=== PATIENT | female | born 1935 | race Caucasian/White ===

== ENCOUNTER 2016-12-16 14:25 | Emergency (ER) | payer MEDICARE, BC ==
[2016-12-16 14:52] VITALS: BP 111/74
[2016-12-16] MEDS ORDERED: Sodium Chloride 0.9% 1,000 ML IV ONE (15:28)
[2016-12-16] MEDS ORDERED: Sodium Chloride 0.9% 10 ML Syringe FLUSH PRN ×2 (15:30→16:51)
[2016-12-16] MEDS ORDERED: HYDROmorphone 0.5 MG/0.5 ML Syringe IVPUSH ONE (15:32)
--- NOTE | 2016-12-16 15:56 | EDM.PDOC ---
ED HISTORY OF PRESENT ILLNESS - General Chief Complaint: Respiratory Problem Stated Complaint: LOW OXYGEN Time Seen by Provider: 12/16/16 15:26 Source of Information: Reports: Patient, Old records (recent ER and hospital stay; labs from earlier today), Provider (Garima Martinez NP called with report) History Limitations: Reports: No limitations - History of Present Illness INITIAL COMMENTS - FREE TEXT/NARRATIVE: Patient presents from the [facility] for evaluation and treatment of hypoxia. The patient's provider Garima Martinez called with report. She is concerned as she has been requiring 2-3 L of oxygen via nasal cannula which is not normal for her. Patient was admitted to our facility in October for congestive heart failure. She did go to [facility] on oxygen and has been steadily been weaned off. Mague is concerned that she may have a PE. She requests that we do a CT to further evaluate. Lab studies from today have been sent over. White blood cell count is 7.8, hemoglobin is 10.8 and platelets are 325. Glucose is 117, potassium is 4.2, sodium is 136 and chloride is 92. Bicarb is 31. BNP was 140. Chest xray impression per [place] [facility] is "Pediatric sternotomy. Hiatal hernia. Calcified hilar lymph nodes. Severe erosive arthropathy of both shoulder. Compressive atelectasis in the left base. No significant chagnes from 12-01-16. Sinus and chest Ct can be helpful in patient's with chronic cough". Of note the patient has also had shingles to the left anterior shoulder extending into her chest. This has been present for the last 2 weeks. She is currently on gapapentin, prednisone and pain medication. She was on valacyclovir but has completed this. - Related Data Allergies/ADRs: Allergies Allergy/AdvReac Type Severity Reaction Status Date / Time No Known Allergies Allergy Verified 12/16/16 14:43 Home Meds: Home Meds Acetaminophen [Tylenol Arthritis] 650 mg PO BID 09/23/16 [History] Calcium Carbonate/Vitamin D3 [Calcium 500 + Vit D Caplet] 1 each PO BID [History] Colon Health 1 tab PO DAILY 09/23/16 [History] Montelukast [Singulair] 10 mg PO DAILY 09/23/16 [History] Omeprazole 20 mg PO DAILY 09/23/16 [History] Oxybutynin Chloride 1 tab PO BEDTIME 09/23/16 [History] Vit A/C/E AC/Znox/Cupric Oxide [Eye Vitamin-Minerals Tablet] 1 each PO DAILY [History] Nabumetone 500 mg PO BID 09/28/16 [History] Potassium Chloride 20 meq PO BID #60 tab.er.prt 09/28/16 [Rx] Fluticasone Propionate [Flonase] 1 spray NASLF ASDIRECTED PRN 11/11/16 [History] Acetaminophen [Tylenol] 650 mg PO Q4H PRN #0 tablet 11/17/16 [Rx] Docusate Sodium [Colace] 100 mg PO BID PRN #30 cap 11/17/16 [Rx] Acetaminophen/HYDROcodone [[place] 325-5 MG] 1 tab PO TID PRN 12/16/16 [History] Bisacodyl [Dulcolax] 10 mg RC ONETIME 12/16/16 [History] Dextromethorphan/guaiFENesin [Robitussin DM] 10 ml PO Q4H PRN 12/16/16 [History] Furosemide [Lasix] 60 mg PO DAILY 12/16/16 [History] Gabapentin [Neurontin] 100 mg PO TID 12/16/16 [History] Ipratropium/Albuterol Sulfate [Iprat-Albut 0.5-3(2.5) mg/3 ml] 3 ml IH QID 12/16 [History] Oseltamivir [Tamiflu] 75 mg PO BEDTIME 12/16/16 [History] Psyllium Husk/Aspartame [Metamucil Fiber Singles Packet] 1 scoop PO DAILY [History] Triamcinolone Acetonide [Triamcinolone Acetonide 0.1% Crm] 1 appful TOP BID [History] predniSONE [Prednisone] 5 mg PO DAILY 12/16/16 [History] Past Medical History HEENT History: Reports: Cataract, Impaired vision, Macular degeneration Cardiovascular History: Reports: Heart Failure, Hypertension Respiratory History: Reports: SOB Other Respiratory History: started on oxygen 11/05/16 Gastrointestinal History: Reports: GERD 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: Musculoskeletal History: Reports: Arthritis, Osteoporosis, Other (see below) Other Musculoskeletal History: scoliosis, bilateral knee replacement, right hip replacement Oncologic (Cancer) History: Reports: Basal cell carcinoma, Other (see below) Other Oncologic History: Thyoma carcinoma, 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 - Infectious Disease History Infectious Disease History: Reports: Chicken pox, Measles, Mumps - Past Surgical History HEENT Surgical History: Reports: Adenoidectomy, Cataract surgery, Tonsillectomy Cardiovascular Surgical History: Reports: None Respiratory Surgical History: Reports: Other (see below) Other Respiratory Surgeries/Procedures: thyoma resection GI Surgical History: Reports: None Female Surgical History: Reports: Hysterectomy Musculoskeletal Surgical History: Reports: Hip replacement, Knee replacement Oncologic Surgical History: Reports: None Social & Family History - Family History Family Medical History: Noncontributory - Tobacco Use Smoking Status *Q: Never Smoker Second Hand Smoke Exposure: No - Caffeine Use Caffeine Use: Reports: Tea Other Caffeine Use: 2 cups of tea a day - Recreational Drug Use Recreational Drug Use: No ED ROS GENERAL - Review of Systems Review Of Systems: See Below Constitutional: Denies: fever Respiratory: Reports: Shortness of Breath Cardiovascular: Reports: Orthopnea. Denies: Chest pain Skin: Reports: rash (left neck and left anterior chest) ED EXAM, GENERAL - Physical Exam Exam: See Below Exam Limited By: No limitations General Appearance: alert, WD/WN, no apparent distress Respiratory/Chest: no respiratory distress, decreased breath sounds Cardiovascular: normal peripheral pulses, regular rate, rhythm, no murmur Neurological: alert, oriented, normal cognition Psychiatric: normal affect, normal mood Skin Exam: Zoster-like rash (left neck and anterior chest; mixture of open and crusted over lesions) Course - Vital Signs Last Recorded V/S: Last Vital Signs Temp 36.8 C 12/16/16 14:43 Pulse 90 12/16/16 14:43 Resp 20 12/16/16 14:43 BP 111/74 12/16/16 14:43 Pulse Ox 98 12/16/16 14:43 - Orders/Labs/Meds Labs: Laboratory Tests 12/16/16 12/16/16 12/16/16 Range/Units 15:25 15:35 15:35 D-Dimer, Quantitative 1.36 H (0.19-0.59) mg/L Creatinine 0.9 (0.55-1.02) mg/dL Est Cr Clr Drug Dosing 35.74 mL/min Estimated GFR (MDRD) 60 (>60) mL/min Magnesium 1.8 (1.8-2.4) mg/dl B-Natriuretic Peptide (0-100) pg/mL 12/16/16 Range/Units 15:35 D-Dimer, Quantitative (0.19-0.59) mg/L Creatinine (0.55-1.02) mg/dL Est Cr Clr Drug Dosing mL/min Estimated GFR (MDRD) (>60) mL/min Magnesium (1.8-2.4) mg/dl B-Natriuretic Peptide 176 H (0-100) pg/mL Meds: Medications Discontinued Medications Generic Name Dose Route Start Last Admin Trade Name Freq PRN Reason Stop Dose Admin Hydromorphone HCl 0.25 mg 12/16/16 15:32 12/16/16 15:45 Dilaudid IVPUSH 12/16/16 15:33 0.25 mg ONETIME ONE Administration Sodium Chloride 1,000 mls @ 75 mls/hr 12/16/16 15:28 12/16/16 15:45 Normal Saline IV 12/17/16 04:47 75 mls/hr ONETIME ONE Administration Sodium Chloride 100 mls @ 65 mls/hr 12/16/16 17:00 12/16/16 17:13 Normal Saline IV 65 mls/hr ASDIRECTED TONY Administration Iopamidol 100 ml 12/16/16 16:51 12/16/16 16:52 Isovue-370 (76%) IVPUSH 12/16/16 16:52 100 ml ONETIME ONE Administration Sodium Chloride 10 ml 12/16/16 15:30 12/16/16 15:46 Saline Flush FLUSH 10 ml ASDIRECTED PRN Administration Keep Vein Open Sodium Chloride 10 ml 12/16/16 16:51 12/16/16 16:52 Saline Flush FLUSH 10 ml ONETIME PRN Administration IV FLUSH - Radiology Interpretation Free Text/Narrative:: CT pulmonary impression per Dr. Tod hahn. No findings of pulmonary and was in the stomach is intrathoracic in location raising the possibility of diaphragmatic hernia. This is seen on previous exam. 3. Small left-sided pleural effusion and trace right-sided pleural effusion. Both lesions have diminished in size from previous exam. The descending aorta he is aneurysmal with AP dimension of 4.8 cm. This remains stable from prior CT exam when allowing for differences in measurement technique. CT Results Date: 12/16/16 - Re-Assessments/Exams Free Text/Narrative Re-Assessment/Exam: 12/16/16 17:50 Labs returned. D-dimer is 1.36. Creatinine 0.9, GFR 60. Magnesium is 1.8. BNP is 176. CT pulmonary angiogram is negative for PE. small pleural effusion. I believe reason she likely is requiring oxygen is due to her pain medications she is on for her shingles. We will send her back to the half-way for further management and care of her shingles and heart failure. I do not feel she needs to be admitted. Discharge instructions as documented. Departure - Departure Time of Disposition: 17:47 Disposition: Home, Self-Care 01 Condition: fair Clinical Impression: Shingles, Hypoxemia Instructions: Hypoxemia, Shingles, [id number] Referrals: Jamey Rodriguez MD [Primary Care Provider] - Forms: ED Department Discharge Additional Instructions: Continue with your current plan of care as recommended by Garima Martinez, nurse practitioner. Your workup in the ER stay was unremarkable for pulmonary embolus. I believe that the reason you are requiring oxygen is due to your pain medications that you need for your shingles. May return to [facility]. Further care to be directed by Garima Martinez. Please return to the ER should your symptoms change or worsen.
[2016-12-16] MEDS ORDERED: Iopamidol 755 Mg/ML 100 ML Bottle IVPUSH ONE (16:51)
[2016-12-16] MEDS ORDERED: Sodium Chloride 0.9% 100 ML IV SCH (17:00)
--- NOTE | 2016-12-16 17:23 | CT ---
CT chest Technique: Multiple axial sections were obtained through the chest. Reconstructed coronal and sagittal images were obtained. Intravenous and oral contrast was utilized. Study has been performed as a pulmonary angiogram protocol. Comparison: Previous chest CT of 11/15/16. Findings: Pulmonary arteries are well-opacified. No filling defects are seen to indicate pulmonary embolism. Stomach is intrathoracic in location raising the possibility of diaphragmatic hernia. Ascending aorta is aneurysmal with AP dimension of 4.8 cm comparing to the descending aorta at 3.0 cm. Small left-sided pleural effusion is seen. Very minimal right sided pleural effusion is seen. Lungs otherwise are clear. Previous sternotomy is noted. Coronary artery calcification is seen. Small portion of the visualized upper abdominal structures appear within normal limits. Scoliosis and degenerative change is noted within the spine. Impression: 1. No findings of pulmonary embolism. 2. Stomach is intrathoracic in location raising the possibility of diaphragmatic hernia. This is seen on previous exam. 3. Small left-sided pleural effusion and trace right-sided pleural effusion. Pleural effusions have diminished in size from previous exam. 4. Ascending aorta is aneurysmal with AP dimension of 4.8 cm. This remains stable from prior CT exam when allowing for differences in measurement technique. Diagnostic code #3
== END 2016-12-16 18:00 | disposition home or self-care (01) ==
LOC: JD.ED 14:25
DX: R09.02 Hypoxemia (principal); B02.9 Zoster without complications; I11.0 Hypertensive heart disease with heart failure; I50.9 Heart failure, unspecified; K21.9 Gastro-esophageal reflux disease without esophagitis; M19.90 Unspecified osteoarthritis, unspecified site; Z98.890 Other specified postprocedural states; Z98.49 Cataract extraction status, unspecified eye; Z90.710 Acquired absence of both cervix and uterus; Z88.8 Allergy status to other drugs, medicaments and biological substances
CPT/HCPCS: 36415; 71275; 82565; 83735; 83880; 85379; 96361; 96374; 99285; J1170; J7030; J7040; J7050; Q9967; 99284

== ENCOUNTER 2017-01-13 21:15 | Emergency (ER) | payer MEDICARE, BC ==
[2017-01-13 21:21] VITALS: BP 133/88
--- NOTE | 2017-01-13 21:39 | EDM.PDOC ---
ED HPI Trauma - General Chief Complaint: Lower Extremity Injury/Pain Stated Complaint: [facility] Time Seen by Provider: 01/13/17 21:25 Source: Reports: Patient, EMS History Limitations: Reports: No limitations - History of Present Illness INITIAL COMMENTS - FREE TEXT/NARRATIVE: The patient presents by [facility] for left hip pain. She said earlier today she was walking by a fridge and she hit it with her left hip. She did not fall. She has pain in her left hip when bearing weight. She has COPD and is on oxygen. She is recovering from shingles. She has no numbness or weakness that leg. She has no fever or chills. Occurred When: this afternoon Occurred Where: home Method of Injury: other (She thinks she walked into a fridge) Severity: moderate Pain/Injury Location: Reports: upper extremity, left (hip) Consciousness: Reports: no loss of consciousness Allergies/ADRs: Allergies No Known Allergies Allergy (Verified 12/16/16 14:43) Home Medications: Ambulatory Orders Acetaminophen [Tylenol Arthritis] 650 mg PO BID 09/23/16 [Confirmed 01/13/17] Calcium Carbonate/Vitamin D3 [Calcium 500 + Vit D Caplet] 1 each PO BID [Confirmed 01/13/17] Montelukast [Singulair] 10 mg PO DAILY 09/23/16 [Confirmed 01/13/17] Omeprazole 20 mg PO DAILY 09/23/16 [Confirmed 01/13/17] Vit A/C/E AC/Znox/Cupric Oxide [Eye Vitamin-Minerals Tablet] 1 each PO DAILY [Confirmed 01/13/17] Nabumetone 500 mg PO BID 09/28/16 [Confirmed 01/13/17] Potassium Chloride 20 meq PO BID #60 tab.er.prt 09/28/16 [Confirmed 01/13/17] Acetaminophen [Tylenol] 650 mg PO Q4H PRN #0 tablet 11/17/16 [Confirmed 01/13/17 ] Furosemide [Lasix] 60 mg PO DAILY 12/16/16 [Confirmed 01/13/17] Gabapentin [Neurontin] 100 mg PO TID 12/16/16 [Confirmed 01/13/17] Ipratropium/Albuterol Sulfate [Iprat-Albut 0.5-3(2.5) mg/3 ml] 3 ml IH QID 12/16 [Confirmed 01/13/17] predniSONE [Prednisone] 5 mg PO DAILY 12/16/16 [Confirmed 01/13/17] Budesonide [Pulmicort] 0.5 mg IH BID 01/13/17 [Confirmed 01/13/17] Past Medical History HEENT History: Reports: Cataract, Impaired vision, Macular degeneration Cardiovascular History: Reports: Heart Failure, Hypertension Respiratory History: Reports: SOB Other Respiratory History: started on oxygen 11/05/16 Gastrointestinal History: Reports: GERD 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: Musculoskeletal History: Reports: Arthritis, Osteoporosis, Other (see below) Other Musculoskeletal History: scoliosis, bilateral knee replacement, right hip replacement Oncologic (Cancer) History: Reports: Basal cell carcinoma, Other (see below) Other Oncologic History: Thyoma carcinoma, 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 - Infectious Disease History Infectious Disease History: Reports: Chicken pox, Measles, Mumps - Past Surgical History HEENT Surgical History: Reports: Adenoidectomy, Cataract surgery, Tonsillectomy Cardiovascular Surgical History: Reports: None Respiratory Surgical History: Reports: Other (see below) Other Respiratory Surgeries/Procedures: thyoma resection GI Surgical History: Reports: None Female Surgical History: Reports: Hysterectomy Musculoskeletal Surgical History: Reports: Hip replacement, Knee replacement Oncologic Surgical History: Reports: None Social & Family History - Family History Family Medical History: Noncontributory - Tobacco Use Smoking Status *Q: Never Smoker Second Hand Smoke Exposure: No - Caffeine Use Caffeine Use: Reports: Tea Other Caffeine Use: 2 cups of tea a day - Recreational Drug Use Recreational Drug Use: No Review of Systems - Review of Systems Review Of Systems: See Below Constitutional: Reports: no symptoms Eyes: Reports: no symptoms Ears: Reports: no symptoms Nose: Reports: no symptoms Mouth/Throat: Reports: no symptoms Respiratory: Reports: No Symptoms Cardiovascular: Reports: no symptoms GI/Abdominal: Reports: No symptoms Genitourinary: Reports: no symptoms Musculoskeletal: Reports: other (Left hip pain) Trauma Exam - Physical Exam Exam: See Below Exam Limited By: No limitations General Appearance: Reports: alert, no apparent distress Head: Reports: atraumatic, normocephalic Ears: Reports: normal external exam Nose: Reports: normal inspection Respiratory Exam: Reports: no respiratory distress, lungs clear, decreased breath sounds Cardiovascular: Reports: regular rate, rhythm, no edema, no murmur GI/Abdominal: Reports: soft, non tender, no organomegaly Extremities: Reports: other (No pain upon palpation to the left hip and no ecchymosis or edema. She does have some pain with internal and external rotation at the hip.) Course - Vital Signs Last Recorded V/S: Last Vital Signs Temp 98.3 F 01/13/17 21:20 Pulse 92 01/13/17 21:20 Resp 20 01/13/17 21:20 BP 133/88 01/13/17 21:20 Pulse Ox 90 L 01/13/17 21:20 - Orders/Labs/Meds Orders: Active Orders 24 hr Category Date Time Status Cardiac Monitoring [RC] . DIRECTED Care 01/13/17 21:35 Active Cardiac Monitoring [RC] . DIRECTED Care 01/13/17 22:15 Active EKG Documentation Completion [RC] STAT Care 01/13/17 22:16 Active Oxygen Therapy [RC] PRN Care 01/13/17 21:35 Active Peripheral IV Care [RC] . DIRECTED Care 01/13/17 22:16 Active Chest 1V Frontal [CR] Stat Exams 01/13/17 22:16 Taken Hip Min 2V or 3V w Pelvis Lt [CR] Stat Exams 01/13/17 21:34 Taken HYDROmorphone [Dilaudid] Med 01/13/17 23:00 Once 0.5 mg IVPUSH ONETIME ONE Sodium Chloride 0.9% [Saline Flush] Med 01/13/17 22:15 Active 10 ml FLUSH ASDIRECTED PRN Peripheral IV Insertion Adult [OM.PC] Stat Oth 01/13/17 22:15 Ordered Medication Orders Hydromorphone HCl (Dilaudid) 0.5 mg IVPUSH ONETIME ONE Stop: 01/13/17 23:01 Sodium Chloride (Saline Flush) 10 ml FLUSH ASDIRECTED PRN PRN Reason: Keep Vein Open Last Admin: 01/13/17 22:29 Dose: 10 ml Labs: Laboratory Tests 01/13/17 01/13/17 01/13/17 Range/Units 22:30 22:30 22:30 WBC 11.98 H (3.98-10.04) K/mm3 RBC 3.84 L (3.98-5.22) M/mm3 Hgb 10.2 L (11.2-15.7) gm/L Hct 32.9 L (34.1-44.9) % MCV 85.7 (79.4-94.8) fl MCH 26.6 (25.6-32.2) pg MCHC 31.0 L (32.2-35.5) g/dl RDW Std Deviation 58.8 H (36.4-46.3) fL Plt Count 248 (182-369) K/mm3 MPV 10.7 (9.4-12.3) fl Neut % (Auto) 75.3 H (34.0-71.1) % Lymph % (Auto) 8.3 L (19.3-51.7) % [place] % (Auto) 13.5 H (4.7-12.5) % Eos % (Auto) 1.9 (0.7-5.8) Baso % (Auto) 0.3 (0.1-1.2) % Neut # (Auto) 9.03 H (1.56-6.13) K/mm3 Lymph # (Auto) 0.99 L (1.18-3.74) K/mm3 [place] # (Auto) 1.62 H (0.24-0.36) K/mm3 Eos # (Auto) 0.23 (0.04-0.36) K/mm3 Baso # (Auto) 0.03 (0.01-0.08) K/mm3 Manual Slide Review Abnormal smear PT 10.4 (8.0-13.0) SECONDS INR 0.96 APTT 22 (22-36) SECONDS Sodium 138 (136-145) mEq/L Potassium 3.8 (3.5-5.1) mEq/L Chloride 101 (98-107) mEq/L Carbon Dioxide 29 (21-32) mEq/L Anion Gap 11.8 (5-15) BUN 24 H (7-18) mg/dL Creatinine 1.1 H (0.55-1.02) mg/dL Est Cr Clr Drug Dosing 32.06 mL/min Estimated GFR (MDRD) 47 (>60) mL/min BUN/Creatinine Ratio 21.8 H (14-18) Glucose 123 H (83-115) mg/dL Calcium 8.8 (8.5-10.1) mg/dL Total Bilirubin 0.6 (0.2-1.0) mg/dL AST 18 (15-37) U/L ALT 16 (14-59) U/L Alkaline Phosphatase 59 (46-116) U/L Troponin I 0.027 (0.00-0.056) ng/mL Total Protein 6.3 L (6.4-8.2) g/dl Albumin 2.9 L (3.4-5.0) g/dl Globulin 3.4 gm/dL Albumin/Globulin Ratio 0.9 L (1-2) Meds: Medications Generic Name Dose Route Start Last Admin Trade Name Freq PRN Reason Stop Dose Admin Hydromorphone HCl 0.5 mg 01/13/17 23:00 Dilaudid IVPUSH 01/13/17 23:01 ONETIME ONE Sodium Chloride 10 ml 01/13/17 22:15 01/13/17 22:29 Saline Flush FLUSH 10 ml ASDIRECTED PRN Administration Keep Vein Open - Re-Assessments/Exams Free Text/Narrative Re-Assessment/Exam: 01/13/17 21:38 I have ordered an x-ray of her hip and pelvis. 01/13/17 22:19 The x-ray shows a fractured hip at the femoral neck. I have ordered an IV saline lock, EKG, CXR, labs, and UA. We do not have any orthopedic coverage tonight. The patient will need to go to [place]. The patient and family would like to go to [place]. I have placed a call and I am waiting for a return call. 01/13/17 22:51 Her WBC was slightly elevated at 11.98. Her Hgb is a little low at 10.2. Her platelets are normal at 248. Her PT, PTT, and INR are negative. Her creatinine is slightly elevated at 1.1. Her glucose is 123. Her troponin is negative. I talked with Dr Castellanos and Dr Rodgers and they both accepted the patient. The patient is DNR. Departure - Departure Time of Disposition: 23:05 Disposition: DC/Tfer to [facility] 02 Condition: fair Clinical Impression: Closed left hip fracture Qualifiers: Encounter type: initial encounter Qualified Code(s): S72.002A - Fracture of unspecified part of neck of left femur, initial encounter for closed fracture CHF (congestive heart failure) Qualifiers: Congestive heart failure type: unspecified congestive heart failure type Congestive heart failure chronicity: acute Qualified Code(s): I50.9 - Heart failure, unspecified Forms: ED Department Discharge - My Orders Last 24 Hours: My Active Orders 01/13/17 21:34 Hip Min 2V or 3V w Pelvis Lt [CR] Stat 01/13/17 21:35 Cardiac Monitoring [RC] . DIRECTED Oxygen Therapy [RC] PRN 01/13/17 22:15 Cardiac Monitoring [RC] . DIRECTED Sodium Chloride 0.9% [Saline Flush] 10 ml FLUSH ASDIRECTED PRN Peripheral IV Insertion Adult [OM.PC] Stat 01/13/17 22:16 EKG Documentation Completion [RC] STAT Peripheral IV Care [RC] . DIRECTED Chest 1V Frontal [CR] Stat 01/13/17 23:00 HYDROmorphone [Dilaudid] 0.5 mg IVPUSH ONETIME ONE - Assessment/Plan Last 24 Hours: My Active Orders 01/13/17 21:34 Hip Min 2V or 3V w Pelvis Lt [CR] Stat 01/13/17 21:35 Cardiac Monitoring [RC] . DIRECTED Oxygen Therapy [RC] PRN 01/13/17 22:15 Cardiac Monitoring [RC] . DIRECTED Sodium Chloride 0.9% [Saline Flush] 10 ml FLUSH ASDIRECTED PRN Peripheral IV Insertion Adult [OM.PC] Stat 01/13/17 22:16 EKG Documentation Completion [RC] STAT Peripheral IV Care [RC] . DIRECTED Chest 1V Frontal [CR] Stat 01/13/17 23:00 HYDROmorphone [Dilaudid] 0.5 mg IVPUSH ONETIME ONE
[2017-01-13] MEDS ORDERED: Sodium Chloride 0.9% 10 ML Syringe FLUSH PRN (22:15)
[2017-01-13] MEDS ORDERED: HYDROmorphone 0.5 MG/0.5 ML Syringe IVPUSH ONE (23:00)
[2017-01-13] MEDS ORDERED: Ondansetron 4 MG/2 ML SDV IVPUSH ONE (23:14)
--- NOTE | 2017-01-14 09:47 | CR ---
Pelvis and left hip: AP view of the pelvis was obtained as well as AP view of the left hip. Mildly displaced subcapital fracture is noted within the left hip. Right hip prosthesis is seen. Bony structures are osteoporotic. Vascular calcification is seen. No additional fracture is appreciated. Impression: 1. Mildly displaced subcapital fracture within the left hip. 2. Other incidental findings. Diagnostic code #3
--- NOTE | 2017-01-14 09:47 | CR ---
Chest: Frontal view of the chest was obtained. Comparison: Previous chest CT of 12/16/16 and chest x-ray of 11/15/16. Elevated left hemidiaphragm or diaphragmatic hernia again seen on the left side. This is a stable finding from previous exam. Lungs are clear with no acute infiltrates. Heart size and mediastinum are unchanged. Previous sternotomy noted. Bony structures are osteopenic. Degenerative change noted within both shoulders, worse on the left side. Impression: 1. Findings as noted above. Nothing acute is identified on frontal chest x-ray. Diagnostic code #2
== END 2017-01-13 23:22 ==
LOC: JD.ED 21:15
DX: S72.012A Unspecified intracapsular fracture of left femur, initial encounter for closed fracture (principal); W22.8XXA Striking against or struck by other objects, initial encounter; Y92.009 Unspecified place in unspecified non-institutional (private) residence as the place of occurrence of the external cause; I11.0 Hypertensive heart disease with heart failure; I50.9 Heart failure, unspecified; K21.9 Gastro-esophageal reflux disease without esophagitis; M81.0 Age-related osteoporosis without current pathological fracture; Z96.653 Presence of artificial knee joint, bilateral; Z96.641 Presence of right artificial hip joint; Z98.49 Cataract extraction status, unspecified eye; Z98.890 Other specified postprocedural states; Z85.828 Personal history of other malignant neoplasm of skin; Z79.899 Other long term (current) drug therapy
CPT/HCPCS: 36415; 71010; 73502; 80053; 84484; 85025; 85610; 85730; 93005; 96374; 96375; 99285; J1170; J2405; J7050; 99284

== ENCOUNTER 2017-02-01 11:35 | Inpatient (IN) | payer MEDICARE, BC ==
[2017-02-01] MEDS ORDERED: Sodium Chloride 0.9% 10 ML Syringe FLUSH PRN ×2 (11:45→13:44)
[2017-02-01] MEDS ORDERED: Ondansetron 4 MG/2 ML SDV IVPUSH ONE (11:48)
--- NOTE | 2017-02-01 11:50 | EDM.PDOC ---
ED HPI GENERAL MEDICAL PROBLEM - General Chief Complaint: Gastrointestinal Problem Stated Complaint: [facility] Time Seen by Provider: 02/01/17 11:43 Source of Information: Reports: Patient History Limitations: Reports: No limitations, Other (hearing impared) - History of Present Illness INITIAL COMMENTS - FREE TEXT/NARRATIVE: 81-year-old female presents via the ambulance service for evaluation and treatment of dizziness, nausea and vomiting. Patient reportedly felt dizzy and fell down onto her left side. She says that she did not hit her head nor lose consciousness she fell from the dizziness. After the dizziness she then developed nausea and vomiting. She did not use her emergency lifeline button as she knew her daughters were coming to visit her shortly. Her daughters found her on the floor on her left hip. Patient did have a total hip replacement done about 3 weeks ago in [place] in [place], by Dr. Castellanos. She is not complaining of any pain. She denies any chest pain, shortness of breath or abdominal pain. She reports dizziness, nausea and vomiting. States the dizziness is worse with movement. She was given 4 mg Zofran by the ambulance crew. patient is a DO NOT RESUSCITATE, DO NOT INTUBATE. - Related Data Allergies Allergy/AdvReac Type Severity Reaction Status Date / Time No Known Allergies Allergy Verified 12/16/16 14:43 Home Meds: Home Meds Calcium Carbonate/Vitamin D3 [Calcium 500 + Vit D Caplet] 1 each PO BID [History] Montelukast [Singulair] 10 mg PO DAILY 09/23/16 [History] Omeprazole 20 mg PO DAILY 09/23/16 [History] Vit A/C/E AC/Znox/Cupric Oxide [Eye Vitamin-Minerals Tablet] 1 each PO DAILY [History] Potassium Chloride 20 meq PO BID #60 tab.er.prt 09/28/16 [Rx] Furosemide [Lasix] 60 mg PO DAILY 12/16/16 [History] Gabapentin [Neurontin] 100 mg PO TID 12/16/16 [History] Ipratropium/Albuterol Sulfate [Iprat-Albut 0.5-3(2.5) mg/3 ml] 3 ml IH QID 12/16 [History] Budesonide [Pulmicort] 0.5 mg IH BID 01/13/17 [History] Acetaminophen [Tylenol] 650 mg PO Q4H PRN 02/01/17 [History] Aspirin [Ecotrin] 325 mg PO BID 02/01/17 [History] Dextromethorphan/guaiFENesin [Robitussin DM] 10 ml PO Q4H PRN 02/01/17 [History] Docusate Sodium 100 mg PO BID 02/01/17 [History] Oxybutynin Chloride 5 mg PO DAILY 02/01/17 [History] Psyllium [Metamucil] 10 ml PO DAILY 02/01/17 [History] Sodium Chloride [Saline Nasal [place]] 2 spray INH Q2H PRN 02/01/17 [History] Triamcinolone Acetonide [Triamcinolone Acetonide 0.1% Crm] 1 ml TOP BID [History] Umeclidinium Brm/Vilanterol Tr [Anoro Ellipta 62.5-25 Mcg INH] 1 puff INH DAILY PRN 02/01/17 [History] traMADol [Ultram] 50 mg PO Q6H PRN 02/01/17 [History] Past Medical History HEENT History: Reports: Cataract, Impaired vision, Macular degeneration Cardiovascular History: Reports: Heart Failure, Hypertension Respiratory History: Reports: SOB Other Respiratory History: started on oxygen 11/05/16 Gastrointestinal History: Reports: [employer] History: Reports: Musculoskeletal History: Reports: Arthritis, Osteoporosis, Other (see below) Other Musculoskeletal History: scoliosis, bilateral knee replacement, right hip replacement Oncologic (Cancer) History: Reports: Basal cell carcinoma, Other (see below) Other Oncologic History: Thyoma carcinoma, 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 - Infectious Disease History Infectious Disease History: Reports: Chicken pox, Measles, Mumps - Past Surgical History HEENT Surgical History: Reports: Adenoidectomy, Cataract surgery, Tonsillectomy Cardiovascular Surgical History: Reports: None Respiratory Surgical History: Reports: Other (see below) Other Respiratory Surgeries/Procedures: thyoma resection GI Surgical History: Reports: None Female Surgical History: Reports: Hysterectomy Musculoskeletal Surgical History: Reports: Hip replacement, Knee replacement Oncologic Surgical History: Reports: None Social & Family History - Family History Family Medical History: Noncontributory - Tobacco Use Smoking Status *Q: Never Smoker Second Hand Smoke Exposure: No - Caffeine Use Caffeine Use: Reports: Tea Other Caffeine Use: 2 cups of tea a day - Recreational Drug Use Recreational Drug Use: No ED ROS GENERAL - Review of Systems Review Of Systems: See Below Constitutional: Denies: fever Respiratory: Denies: Shortness of Breath Cardiovascular: Denies: Chest pain GI/Abdominal: Reports: Nausea, Vomiting. Denies: Abdominal pain Neurological: Reports: Dizziness. Denies: Headache, Syncope ED EXAM, GI/ABD - Physical Exam Exam: See Below Exam Limited By: No limitations General Appearance: alert, WD/WN, no apparent distress Ears: normal external exam Nose: normal inspection Throat/Mouth: Normal inspection, Normal voice, No airway compromise Head: atraumatic, normocephalic Neck: normal inspection, supple, non-tender, full range of motion Respiratory/Chest: no respiratory distress, lungs clear, normal breath sounds Cardiovascular: normal peripheral pulses, regular rate, rhythm, systolic murmur GI/Abdominal: Soft, Non-Tender Neurological: alert, oriented, normal cognition Psychiatric: normal affect, normal mood Skin Exam: Warm, Dry, Pallor EKG INTERPRETATION EKG Date: 02/01/17 Time: 12:25 Rhythm: NSR Rate (beats/min): 78 [place]: normal P-wave: present QRS: normal ST-T: normal QT: normal EKG Interpretation Comments: 12:25 EKG : NSR at 78 bpm. No acute changes. Reviewed by myself and Dr. Frazier. 14:10 EKG: NSR at 77 bpm. RBBB. Multiform PVCs. Reviewed by myself and Dr. Frazier. Course - Vital Signs Last Recorded V/S: Last Vital Signs Temp 36.6 C 02/01/17 17:37 Pulse 85 02/01/17 17:37 Resp 20 02/01/17 17:37 BP 132/75 02/01/17 17:37 Pulse Ox 97 02/01/17 20:22 - Orders/Labs/Meds Orders: Active Orders 24 hr Category Date Time Status Orthostatic Vital Signs [RC] ASDIRECTED Care 02/01/17 15:24 Active Chest 1V Frontal [CR] Stat Exams 02/01/17 11:45 Taken Hip Min 2V or 3V w Pelvis Lt [CR] Stat Exams 02/01/17 13:00 Taken UA W/MICROSCOPIC [URIN] Stat Lab 02/01/17 11:46 Uncollected Sodium Chloride 0.9% [Normal Saline] 1,000 ml Med 02/01/17 13:42 Active IV ONETIME Sodium Chloride 0.9% [Normal Saline] 100 ml Med 02/01/17 13:45 Active IV ASDIRECTED Sodium Chloride 0.9% [Saline Flush] Med 02/01/17 11:45 Active 10 ml FLUSH ASDIRECTED PRN Sodium Chloride 0.9% [Saline Flush] Med 02/01/17 13:44 Active 10 ml FLUSH ONETIME PRN Peripheral IV Insertion Adult [OM.PC] Routine Oth 02/01/17 11:46 Ordered Medication Orders Acetaminophen (Tylenol) 650 mg PO Q4H PRN PRN Reason: Pain Last Admin: 02/01/17 21:19 Dose: 650 mg Albuterol/Ipratropium (Duoneb 3.0-0.5 Mg/3 Ml) 3 ml NEB QIDRT [facility] Last Admin: 02/01/17 20:19 Dose: 3 ml Budesonide (Pulmicort) 0.5 mg INH BID [facility] Last Admin: 02/01/17 20:19 Dose: 0.5 mg Gabapentin (Neurontin) 100 mg PO TID [facility] Last Admin: 02/01/17 21:19 Dose: 100 mg Guaifenesin/Phenylephrine HCl (Robitussin Dm) 10 ml PO Q4H PRN PRN Reason: Cough Sodium Chloride (Normal Saline) 1,000 mls @ 100 mls/hr IV ONETIME ONE Stop: 02/01/17 23:41 Last Admin: 02/01/17 13:46 Dose: 100 mls/hr Sodium Chloride (Normal Saline) 100 mls @ 65 mls/hr IV ASDIRECTED [facility] Last Admin: 02/01/17 14:06 Dose: 65 mls/hr Montelukast Sodium (Singulair) 10 mg PO DAILY [facility] Non-Formulary Medication (Oxybutynin Chloride [Oxybutynin Chloride]) 5 mg PO DAILY [facility] Ondansetron HCl (Zofran) 4 mg IVPUSH Q8H PRN PRN Reason: Nausea/Vomiting Pantoprazole Sodium (Protonix Iv) 40 mg IV ACBREAKFAST [facility] Sodium Chloride (Saline Flush) 10 ml FLUSH ASDIRECTED PRN PRN Reason: Keep Vein Open Last Admin: 02/01/17 11:54 Dose: 10 ml Sodium Chloride (Saline Flush) 10 ml FLUSH ONETIME PRN PRN Reason: IV FLUSH Last Admin: 02/01/17 14:07 Dose: 10 ml Temazepam (Restoril) 7.5 mg PO BEDTIME PRN PRN Reason: Insomnia Labs: Laboratory Tests 02/01/17 02/01/17 02/01/17 Range/Units 12:15 12:15 12:15 WBC 11.77 H (3.98-10.04) K/mm3 RBC 3.81 L (3.98-5.22) M/mm3 Hgb 10.0 L (11.2-15.7) gm/L Hct 32.7 L (34.1-44.9) % MCV 85.8 (79.4-94.8) fl MCH 26.2 (25.6-32.2) pg MCHC 30.6 L (32.2-35.5) g/dl RDW Std Deviation 58.3 H (36.4-46.3) fL Plt Count 310 (182-369) K/mm3 MPV 10.3 (9.4-12.3) fl Neutrophils % (Manual) 79 H (40-60) % Band Neutrophils % 2 (0-10) % Lymphocytes % (Manual) 10 L (20-40) % Atypical Lymphs % 0 % Monocytes % (Manual) 9 (2-10) % Eosinophils % (Manual) 0 L (0.7-5.8) % Basophils % (Manual) 0 L (0.1-1.2) Platelet Estimate Adequate RBC Morph Comment Normal D-Dimer, Quantitative (0.19-0.59) mg/L Sodium 138 (136-145) mEq/L Potassium 3.4 L (3.5-5.1) mEq/L Chloride 101 (98-107) mEq/L Carbon Dioxide 31 (21-32) mEq/L Anion Gap 9.4 (5-15) BUN 20 H (7-18) mg/dL Creatinine 0.8 (0.55-1.02) mg/dL Est Cr Clr Drug Dosing 44.08 mL/min Estimated GFR (MDRD) > 60 (>60) mL/min BUN/Creatinine Ratio 25.0 H (14-18) Glucose 142 H (83-115) mg/dL Calcium 9.3 (8.5-10.1) mg/dL Magnesium 1.8 (1.8-2.4) mg/dl Total Bilirubin 0.7 (0.2-1.0) mg/dL AST 27 (15-37) U/L ALT 21 (14-59) U/L Alkaline Phosphatase 69 (46-116) U/L Creatine Kinase (26-192) U/L Troponin I < 0.017 (0.00-0.056) ng/mL C-Reactive Protein < 0.2 (<1.0) mg/dL B-Natriuretic Peptide 155 H (0-100) pg/mL Total Protein 6.9 (6.4-8.2) g/dl Albumin 3.1 L (3.4-5.0) g/dl Globulin 3.8 gm/dL Albumin/Globulin Ratio 0.8 L (1-2) 02/01/17 02/01/17 Range/Units 12:15 12:15 WBC (3.98-10.04) K/mm3 RBC (3.98-5.22) M/mm3 Hgb (11.2-15.7) gm/L Hct (34.1-44.9) % MCV (79.4-94.8) fl MCH (25.6-32.2) pg MCHC (32.2-35.5) g/dl RDW Std Deviation (36.4-46.3) fL Plt Count (182-369) K/mm3 MPV (9.4-12.3) fl Neutrophils % (Manual) (40-60) % Band Neutrophils % (0-10) % Lymphocytes % (Manual) (20-40) % Atypical Lymphs % % Monocytes % (Manual) (2-10) % Eosinophils % (Manual) (0.7-5.8) % Basophils % (Manual) (0.1-1.2) Platelet Estimate RBC Morph Comment D-Dimer, Quantitative 4.42 H (0.19-0.59) mg/L Sodium (136-145) mEq/L Potassium (3.5-5.1) mEq/L Chloride (98-107) mEq/L Carbon Dioxide (21-32) mEq/L Anion Gap (5-15) BUN (7-18) mg/dL Creatinine (0.55-1.02) mg/dL Est Cr Clr Drug Dosing mL/min Estimated GFR (MDRD) (>60) mL/min BUN/Creatinine Ratio (14-18) Glucose (83-115) mg/dL Calcium (8.5-10.1) mg/dL Magnesium (1.8-2.4) mg/dl Total Bilirubin (0.2-1.0) mg/dL AST (15-37) U/L ALT (14-59) U/L Alkaline Phosphatase (46-116) U/L Creatine Kinase 122 (26-192) U/L Troponin I (0.00-0.056) ng/mL C-Reactive Protein (<1.0) mg/dL B-Natriuretic Peptide (0-100) pg/mL Total Protein (6.4-8.2) g/dl Albumin (3.4-5.0) g/dl Globulin gm/dL Albumin/Globulin Ratio (1-2) Meds: Medications Generic Name Dose Route Start Last Admin Trade Name Freq PRN Reason Stop Dose Admin Acetaminophen 650 mg 02/01/17 19:06 02/01/17 21:19 Tylenol PO 650 mg Q4H PRN Administration Pain Albuterol/Ipratropium 3 ml 02/01/17 21:00 02/01/17 20:19 Duoneb 3.0-0.5 Mg/3 Ml NEB 3 ml QIDRT TONY Administration Budesonide 0.5 mg 02/01/17 21:00 02/01/17 20:19 Pulmicort INH 0.5 mg BID TONY Administration Gabapentin 100 mg 02/01/17 21:00 02/01/17 21:19 Neurontin PO 100 mg TID TONY Administration Guaifenesin/Phenylephrine HCl 10 ml 02/01/17 19:06 Robitussin Dm PO Q4H PRN Cough Sodium Chloride 1,000 mls @ 100 mls/hr 02/01/17 13:42 02/01/17 13:46 Normal Saline IV 02/01/17 23:41 100 mls/hr ONETIME ONE Administration Sodium Chloride 100 mls @ 65 mls/hr 02/01/17 13:45 02/01/17 14:06 Normal Saline IV 65 mls/hr ASDIRECTED TONY Administration Montelukast Sodium 10 mg 02/02/17 09:00 Singulair PO DAILY TONY Non-Formulary Medication 5 mg 02/02/17 09:00 Oxybutynin Chloride [Oxybutynin Chloride] PO DAILY TONY Ondansetron HCl 4 mg 02/01/17 19:14 Zofran IVPUSH Q8H PRN Nausea/Vomiting Pantoprazole Sodium 40 mg 02/02/17 06:00 Protonix Iv IV ACBREAKFAST TONY Sodium Chloride 10 ml 02/01/17 11:45 02/01/17 11:54 Saline Flush FLUSH 10 ml ASDIRECTED PRN Administration Keep Vein Open Sodium Chloride 10 ml 02/01/17 13:44 02/01/17 14:07 Saline Flush FLUSH 10 ml ONETIME PRN Administration IV FLUSH Temazepam 7.5 mg 02/01/17 19:12 Restoril PO BEDTIME PRN Insomnia Discontinued Medications Generic Name Dose Route Start Last Admin Trade Name Freq PRN Reason Stop Dose Admin Albuterol/Ipratropium 3 ml 02/01/17 21:00 Duoneb 3.0-0.5 Mg/3 Ml NEB QID TONY Iopamidol 100 ml 02/01/17 13:44 02/01/17 14:08 Isovue-370 (76%) IVPUSH 02/01/17 13:45 75 ml ONETIME ONE Administration Meclizine HCl 12.5 mg 02/01/17 13:01 02/01/17 16:01 Antivert PO 02/01/17 13:02 Not Given ONETIME ONE Meclizine HCl 12.5 mg 02/01/17 16:30 02/01/17 16:41 Antivert PO 02/01/17 16:31 12.5 mg ONETIME ONE Administration Metoclopramide HCl 10 mg 02/01/17 13:17 02/01/17 13:28 Reglan IVPUSH 02/01/17 13:18 10 mg ONETIME ONE Administration Ondansetron HCl 4 mg 02/01/17 11:48 02/01/17 11:53 Zofran IVPUSH 02/01/17 11:49 4 mg ONETIME ONE Administration Promethazine HCl 12.5 mg 02/01/17 16:30 02/01/17 16:41 Phenergan IM 02/01/17 16:31 12.5 mg ONETIME ONE Administration - Radiology Interpretation Free Text/Narrative:: CT head without contrast impression per Dr. Nguyễn: 1. Sinus findings which are most likely chronic. 2. Senescent change as described above. 3. No acute intracranial abnormality is identified on noncontrast head Ct exam. CT PE study of the chest impression per Dr. Nguyễn: 1. Aneurysm of the ascending aorta measuring 4.8 cm in AP dimension which is stable from prior chest CT. 2. Left sided diaphragmantic hernia also seen on prior study 3. No findings of pulmonary embolism. Midely enlarged pulmonary arteries likely due to pulmonary hypertensino. 4. Other incidental findings as noted. Xray to the left hip and pelvis shows no acute fractures or dislocations. Chest 1 view shows no acute intrathoracic process. No change from most recent chest xray. CT Results Date: 02/01/17 - Re-Assessments/Exams Free Text/Narrative Re-Assessment/Exam: 02/01/17 13:49 Labs returned. White blood cell count is mildly elevated at 11.77, hemoglobin of 10.0 platelets are 310. Sodium is 138, chloride is 101, potassium 3.4 and glucose is 142. Troponin is within normal limits of 0.017. CRP is within normal limits a less than 0.2. BNP is slightly elevated 155. Moments after I left the room the patient's oxygen sats dropped into the 60s on 2L. I was called back into the room. Lungs still clear. She denies any chest pain or shortness of breath. Oxygen sats returned to the mid 90s with deep inspiration. 02/01/17 15:40 Patient's original EKG upon arrival showed normal sinus rhythm. While patient was on the monitor nursing staff noticed frequent PVCs. I checked The patient's pulse and she is perfusing these PVCs. We repeated the EKG which showed a right bundle branch block with multifocal PVCs. Patient contineus to deny chest pain and shortness of breath. Spoke with Dr. Anguiano, hospitalist, regarding this patient. She agrees to the admission. Will admit to observation status for vertigo, nausea and vomiting Awaiting UA. D-dimer is elevated at 4.42. CT pulmonary exam is negative for any PE. CK is within normal limits at 122. 02/01/17 16:38 Patient has received 4 mg of Zofran from the ambulance, 4 mg of Zofran in the ED and 10 mg of Reglan. She continues to feel nauseous, worse with movement and dizziness. Will give Phenergan and meclizine. Meclizine was not given earlier as she was too nauseous to take this. Departure - Departure Time of Disposition: 16:30 Disposition: Refer to Observation Condition: fair Clinical Impression: Vomiting, Vertigo - Discharge Information - My Orders Last 24 Hours: My Active Orders 02/01/17 11:45 Chest 1V Frontal [CR] Stat Sodium Chloride 0.9% [Saline Flush] 10 ml FLUSH ASDIRECTED PRN 02/01/17 11:46 UA W/MICROSCOPIC [URIN] Stat Peripheral IV Insertion Adult [OM.PC] Routine 02/01/17 13:00 Hip Min 2V or 3V w Pelvis Lt [CR] Stat 02/01/17 13:42 Sodium Chloride 0.9% [Normal Saline] 1,000 ml IV ONETIME 02/01/17 13:44 Sodium Chloride 0.9% [Saline Flush] 10 ml FLUSH ONETIME PRN 02/01/17 13:45 Sodium Chloride 0.9% [Normal Saline] 100 ml IV ASDIRECTED 02/01/17 15:24 Orthostatic Vital Signs [RC] ASDIRECTED - Assessment/Plan Last 24 Hours: My Active Orders 02/01/17 11:45 Chest 1V Frontal [CR] Stat Sodium Chloride 0.9% [Saline Flush] 10 ml FLUSH ASDIRECTED PRN 02/01/17 11:46 UA W/MICROSCOPIC [URIN] Stat Peripheral IV Insertion Adult [OM.PC] Routine 02/01/17 13:00 Hip Min 2V or 3V w Pelvis Lt [CR] Stat 02/01/17 13:42 Sodium Chloride 0.9% [Normal Saline] 1,000 ml IV ONETIME 02/01/17 13:44 Sodium Chloride 0.9% [Saline Flush] 10 ml FLUSH ONETIME PRN 02/01/17 13:45 Sodium Chloride 0.9% [Normal Saline] 100 ml IV ASDIRECTED 02/01/17 15:24 Orthostatic Vital Signs [RC] ASDIRECTED
[2017-02-01] MEDS ORDERED: Meclizine 12.5 MG Tab PO ONE ×2 (13:01→16:30)
--- NOTE | 2017-02-01 13:05 | CT ---
Head CT Technique: Multiple axial sections were obtained through the brain. Intravenous contrast was not utilized. Comparison: No previous intracranial imaging. Findings: Ventricles along with basal cisterns and sulci over convexities are moderately prominent. Mild diminished density is noted within the periventricular white matter which is compatible with small vessel ischemic demyelination change. No other abnormal parenchymal densities are seen. No evidence of intracranial hemorrhage. No midline shift or mass effect is seen. Atherosclerotic calcification is seen within the vertebral vessels and carotid siphon. Mild mucosal thickening is noted within the sphenoid and ethmoid sinuses. No acute calvarial abnormality is seen. Impression: 1. Sinus findings which are most likely chronic. 2. Senescent change as described above. 3. No acute intracranial abnormality is identified on noncontrast head CT exam. Diagnostic code #2
[2017-02-01] MEDS ORDERED: Metoclopramide 10 MG/2 ML SDV IVPUSH ONE (13:17)
[2017-02-01] MEDS ORDERED: Sodium Chloride 0.9% 1,000 ML IV ONE (13:42)
[2017-02-01] MEDS ORDERED: Iopamidol 755 Mg/ML 100 ML Bottle IVPUSH ONE (13:44)
[2017-02-01] MEDS ORDERED: Sodium Chloride 0.9% 100 ML IV SCH (13:45)
--- NOTE | 2017-02-01 15:03 | CT ---
CT chest Technique: Multiple axial sections through the chest were obtained. Intravenous contrast was utilized. Comparison: Previous CT chest of 12/16/16. Findings: Pulmonary arteries are well-opacified. No filling defects are seen to indicate pulmonary embolism. Pulmonary arteries are mildly increased in size likely representing some pulmonary hypertension. Ascending aorta is aneurysmal with AP dimension of 4.8 cm. Ascending aorta measures 2.7 cm. Left sided diaphragmatic hernia is seen. Minimal left-sided pleural effusion is seen. Previous sternotomy is noted. Diffuse coronary artery calcification is seen. Heart is enlarged. Degenerative change and scoliosis is noted within the spine. Mild chronic-appearing left basilar atelectasis is seen. Lungs otherwise are clear. Impression: 1. Aneurysm of the ascending aorta measuring 4.8 cm in AP dimension which is stable from prior chest CT. 2. Left-sided diaphragmatic hernia also seen on prior study. 3. No findings of pulmonary embolism. Mildly enlarged pulmonary arteries likely due to pulmonary hypertension. 4. Other incidental findings as noted above. Diagnostic code #3
[2017-02-01] MEDS ORDERED: Promethazine 25 MG/ML SDV IM ONE (16:30)
[2017-02-01] MEDS ORDERED: guaiFENesin/Dextromethorphan 100-10 MG/5 ML Soln 5 ML Cup PO PRN (19:06)
[2017-02-01] MEDS ORDERED: Acetaminophen 325 MG Tab PO PRN (19:06)
[2017-02-01] MEDS ORDERED: Temazepam 7.5 MG Cap PO PRN (19:12)
[2017-02-01] MEDS ORDERED: Ondansetron 4 MG/2 ML SDV IVPUSH PRN (19:14)
--- NOTE | 2017-02-01 20:12 | PCM.HP ---
H&P History of Present Illness - General Date of Service: 02/01/17 Admit Problem/Dx: Admission Diagnosis/Problem Admission Diagnosis/Problem Vertigo Source of Information: Family, Provider History Limitations: Reports: No Limitations - History of Present Illness Initial Comments - Free Text/Narative: 81 year old female with history of falls, reports dizziness. This was associated with nausea and vomiting. There was no LOC as a result of falling; she does not report the room spinning as described on initial evaluation in the ED. She has had multiple orthopedic procedures which may have been precipated by frequent falls. Ortho PMH: bilateral knee replacement; right hip replacement. vertigo like symptoms have not been voiced this am, but PT evaluation with emphasis on vestibular maneuvers will be pursued. Onset of Symptoms: Reports: Sudden Symptom Onset Date: 02/01/17 Duration of Symptoms: Reports: Hour(s): Location: Reports: Head Quality: Reports: Same as Previous Episode Severity: Moderate Improves with: Reports: None Worsens with: Reports: None Associated Symptoms: Reports: Weakness - Related Data Allergies/Adverse Reactions: Allergies Allergy/AdvReac Type Severity Reaction Status Date / Time No Known Allergies Allergy Verified 12/16/16 14:43 Home Medications: Home Meds Calcium Carbonate/Vitamin D3 [Calcium 500 + Vit D Caplet] 1 each PO BID [History] Montelukast [Singulair] 10 mg PO DAILY 09/23/16 [History] Omeprazole 20 mg PO DAILY 09/23/16 [History] Vit A/C/E AC/Znox/Cupric Oxide [Eye Vitamin-Minerals Tablet] 1 each PO DAILY [History] Potassium Chloride 20 meq PO BID #60 tab.er.prt 09/28/16 [Rx] Furosemide [Lasix] 60 mg PO DAILY 12/16/16 [History] Gabapentin [Neurontin] 100 mg PO TID 12/16/16 [History] Ipratropium/Albuterol Sulfate [Iprat-Albut 0.5-3(2.5) mg/3 ml] 3 ml IH QID 12/16 [History] Budesonide [Pulmicort] 0.5 mg IH BID 01/13/17 [History] Acetaminophen [Tylenol] 650 mg PO Q4H PRN 02/01/17 [History] Dextromethorphan/guaiFENesin [Robitussin DM] 10 ml PO Q4H PRN 02/01/17 [History] Docusate Sodium 100 mg PO BID 02/01/17 [History] Oxybutynin Chloride 5 mg PO DAILY 02/01/17 [History] Psyllium [Metamucil] 10 ml PO DAILY 02/01/17 [History] Sodium Chloride [Saline Nasal [place]] 2 spray INH Q2H PRN 02/01/17 [History] Triamcinolone Acetonide [Triamcinolone Acetonide 0.1% Crm] 1 ml TOP BID [History] Umeclidinium Brm/Vilanterol Tr [Anoro Ellipta 62.5-25 Mcg INH] 1 puff INH DAILY PRN 02/01/17 [History] traMADol [Ultram] 50 mg PO Q6H PRN 02/01/17 [History] predniSONE [Prednisone] 5 mg PO DAILY 02/02/17 [History] Aspirin [Ecotrin] 325 mg PO BID #0 02/04/17 [Rx] Ferrous Sulfate 325 mg PO WITHBREAKFAST #30 tablet 02/04/17 [Rx] Lisinopril [Prinivil] 5 mg PO DAILY #30 tablet 02/04/17 [Rx] Potassium Chloride 40 meq PO BID #60 cup 02/04/17 [Rx] Simvastatin [Zocor] 10 mg PO BEDTIME #30 tablet 02/04/17 [Rx] Past Medical History HEENT History: Reports: Cataract, Impaired Vision, Macular Degeneration Cardiovascular History: Reports: Heart Failure, Hypertension Respiratory History: Reports: SOB Other Respiratory History: started on oxygen 11/05/16 Gastrointestinal History: Reports: GERD [employer] History: Reports: Musculoskeletal History: Reports: Arthritis, Osteoporosis, Other (See Below) Other Musculoskeletal History: scoliosis, bilateral knee replacement, right hip replacement Oncologic (Cancer) History: Reports: Basal Cell Carcinoma, Other (See Below) Other Oncologic History: Thyoma carcinoma, 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 - Infectious Disease History Infectious Disease History: Reports: Chicken Pox, Measles, Mumps - Past Surgical History HEENT Surgical History: Reports: Adenoidectomy, Cataract Surgery, Tonsillectomy Cardiovascular Surgical History: Reports: None Respiratory Surgical History: Reports: Other (See Below) Other Respiratory Surgeries/Procedures: thyoma resection GI Surgical History: Reports: None Female Surgical History: Reports: Hysterectomy Musculoskeletal Surgical History: Reports: Hip Replacement, Knee Replacement Oncologic Surgical History: Reports: None Social & Family History - Family History Family Medical History: Noncontributory - Tobacco Use Smoking Status *Q: Never Smoker Second Hand Smoke Exposure: No - Caffeine Use Caffeine Use: Reports: Tea Other Caffeine Use: 2 cups of tea a day - Recreational Drug Use Recreational Drug Use: No H&P Review of Systems - Review of Systems: Review Of Systems: See Below General: Reports: Weakness HEENT: Reports: No Symptoms Pulmonary: Reports: No Symptoms Cardiovascular: Reports: Lightheadedness Gastrointestinal: Reports: No Symptoms Genitourinary: Reports: No Symptoms Musculoskeletal: Reports: No Symptoms Skin: Reports: No Symptoms Psychiatric: Reports: No Symptoms Neurological: Reports: Difficulty Walking Hematologic/Lymphatic: Reports: No Symptoms Immunologic: Reports: No Symptoms Exam - Exam Exam: See Below - Vital Signs Vital Signs: Last Vital Signs Temp 36.6 C 02/01/17 17:37 Pulse 85 02/01/17 17:37 Resp 20 02/01/17 17:37 BP 132/75 02/01/17 17:37 Pulse Ox 97 02/01/17 17:37 Orthostatic Blood Pressure [ 120/87 Sitting] Orthostatic Blood Pressure [ 132/74 Supine] Weight: 64.864 kg - Exam Quality Assessment: DVT Prophylaxis General: Alert, Oriented, Cooperative HEENT: EOMI, Nares Patent, Normal Nasal Septum, Pupils Equal, Pupils Reactive Neck: Supple, Trachea Midline Lungs: Clear to Auscultation, Normal Respiratory Effort Cardiovascular: Regular Rate, Regular Rhythm Abdomen: Normal Bowel Sounds, Soft, Pelvis Stable (Female) Exam: Deferred Rectal (Female) Exam: Deferred Back Exam: Normal Inspection Extremities: Normal Inspection Skin: Warm Neurological: Cranial Nerves Intact Neuro Extensive - Mental Status: Alert, Normal Mood/Affect Neuro Extensive - Motor, Sensory, Reflexes: CN II-XII Intact Psychiatric: Alert - Patient Data Result Diagrams: 02/04/17 15:15 02/04/17 15:15 *Q Meaningful Use (ADM) - VTE *Q VTE Criteria *Q: - Stroke *Q Stroke Criteria *Q: - AMI *Q AMI Criteria *Q: - Problem List (1) Fall at home SNOMED Code(s): 31113760 ICD Code: W19.XXXA - UNSPECIFIED FALL, INITIAL ENCOUNTER; Y92.099 - UNSP PLACE IN OTH NON-INSTITUTIONAL RESIDENCE PLACE Status: Acute Priority: High Qualifiers: Encounter type: initial encounter Qualified Code(s): W19.XXXA - Unspecified fall, initial encounter; Y92.099 - Unspecified place in other non- institutional residence as the place of occurrence of the external cause (2) Nausea & vomiting SNOMED Code(s): 55557733 ICD Code: R11.2 - NAUSEA WITH VOMITING, UNSPECIFIED Status: Acute Priority: High Qualifiers: Vomiting type: unspecified (3) Vertigo SNOMED Code(s): 441575196 ICD Code: R42 - DIZZINESS AND GIDDINESS Status: Acute Priority: High Problem List Initiated/Reviewed/Updated: Yes Orders Last 24hrs: Active Orders 24 hr Category Date Time Status BMP [BASIC METABOLIC PANEL,BMP] [CHEM] DAILY Lab 02/02/17 05:00 Ordered BMP [BASIC METABOLIC PANEL,BMP] [CHEM] DAILY Lab 02/03/17 05:00 Ordered CBC WITH AUTO DIFF [HEME] DAILY Lab 02/02/17 05:00 Ordered CBC WITH AUTO DIFF [HEME] DAILY Lab 02/03/17 05:00 Ordered CRP [C-REACTIVE PROTEIN] [CHEM] DAILY Lab 02/02/17 05:00 Ordered CRP [C-REACTIVE PROTEIN] [CHEM] DAILY Lab 02/03/17 05:00 Ordered METH-RESIST S.AUR,MRSA BY PCR [MOLEC] Routine Lab 02/01/17 18:50 Received MYCOPLASMA PNEUMONIAE IGM AB [CHEM] Routine Lab 02/02/17 05:00 Ordered RESPIRATORY PANEL BY PCR [MREF] Routine Lab 02/01/17 19:11 Uncollected STREP PNEUMONIAE ANTIGEN [MREF] Routine Lab 02/01/17 20:00 Uncollected Acetaminophen [Tylenol] Med 02/01/17 19:06 Ordered 650 mg PO Q4H PRN Albuterol/Ipratropium [DuoNeb 3.0-0.5 MG/3 ML] Med 02/01/17 21:00 Ordered 3 ml NEB QIDRT Budesonide [Pulmicort] Med 02/01/17 21:00 Ordered 0.5 mg INH BID Dextromethorphan/guaiFENesin [Robitussin DM] Med 02/01/17 19:06 Ordered 10 ml PO Q4H PRN Gabapentin [Neurontin] Med 02/01/17 21:00 Ordered 100 mg PO TID Montelukast [Singulair] Med 02/02/17 09:00 Ordered 10 mg PO DAILY Omeprazole Med 02/02/17 09:00 Ordered 20 mg PO DAILY Ondansetron [Zofran] Med 02/01/17 19:14 Ordered 4 mg IVPUSH Q8H PRN Oxybutynin Chloride [Oxybutynin Chloride] Med 02/02/17 09:00 Ordered 5 mg PO DAILY Temazepam [Restoril] Med 02/01/17 19:12 Ordered 7.5 mg PO BEDTIME PRN Medication Orders Acetaminophen (Tylenol) 650 mg PO Q4H PRN PRN Reason: Pain Albuterol/Ipratropium (Duoneb 3.0-0.5 Mg/3 Ml) 3 ml NEB QIDRT TONY Budesonide (Pulmicort) 0.5 mg INH BID TONY Guaifenesin/Phenylephrine HCl (Robitussin Dm) 10 ml PO Q4H PRN PRN Reason: Cough Sodium Chloride (Normal Saline) 1,000 mls @ 100 mls/hr IV ONETIME ONE Stop: 02/01/17 23:41 Last Admin: 02/01/17 13:46 Dose: 100 mls/hr Sodium Chloride (Normal Saline) 100 mls @ 65 mls/hr IV ASDIRECTED TONY Last Admin: 02/01/17 14:06 Dose: 65 mls/hr Non-Formulary Medication (Oxybutynin Chloride [Oxybutynin Chloride]) 5 mg PO DAILY [facility] Non-Formulary Medication (Omeprazole) 20 mg PO DAILY [facility] Non-Formulary Medication (Montelukast [Singulair]) 10 mg PO DAILY [facility] Non-Formulary Medication (Gabapentin [Neurontin]) 100 mg PO TID [facility] Ondansetron HCl (Zofran) 4 mg IVPUSH Q8H PRN PRN Reason: Nausea/Vomiting Sodium Chloride (Saline Flush) 10 ml FLUSH ASDIRECTED PRN PRN Reason: Keep Vein Open Last Admin: 02/01/17 11:54 Dose: 10 ml Sodium Chloride (Saline Flush) 10 ml FLUSH ONETIME PRN PRN Reason: IV FLUSH Last Admin: 02/01/17 14:07 Dose: 10 ml Temazepam (Restoril) 7.5 mg PO BEDTIME PRN PRN Reason: Insomnia Assessment/Plan Comment:: Impression: Dizziness with unsteady gait s/p recent left hip fracture Query Vertigo, doubt Electrolyte abnormalities Chronic CHF HTN COPD Hx of PNA Plan: Empiric treatment anti-emetic, hydration Meclizine Orthostatics Hydration Replace electrolytes Consult PT/OT/SW Eval vestibular dysfunction, PT Repeat CT of head or equivalent DVT/GI prophylaxis
[2017-02-01] MEDS: Budesonide 0.5 MG/2 ML Neb Susp INH SCH (20:19)
[2017-02-01] MEDS: Albuterol/Ipratropium 3.0-0.5 MG/3 ML Neb Soln NEB SCH (20:19)
[2017-02-01] MEDS ORDERED: Albuterol/Ipratropium 3.0-0.5 MG/3 ML Neb Soln NEB SCH (21:00)
[2017-02-01] MEDS: Gabapentin 100 MG Cap PO SCH (21:19)
[2017-02-02] MEDS ORDERED: Pantoprazole 40 MG Vial IV SCH (06:00)
[2017-02-02] MEDS: Albuterol/Ipratropium 3.0-0.5 MG/3 ML Neb Soln NEB SCH ×4 (06:15→20:56)
--- NOTE | 2017-02-02 08:29 | CR ---
Pelvis and left hip: AP view of the pelvis was obtained as well as AP and frog-leg lateral views of the left hip. Comparison: Previous pelvis and left hip exam of 01/13/17. Bilateral hip prosthesis are seen. Components are aligned. Bony structures are osteopenic. Partially visualized degenerative change and scoliosis is noted within the spine. Diffuse vascular calcification is seen. Diverticuli are seen within the sigmoid colon filled with contrast from previous contrast study. Calcifications are seen within the pelvis which are compatible with phleboliths. No acute abnormality is seen. Impression: 1. Bilateral hip prosthesis and other incidental findings. 2. Nothing acute is identified on AP pelvis or on two-view left hip exam. Diagnostic code #2
--- NOTE | 2017-02-02 08:29 | CR ---
Chest: Frontal view of the chest was obtained. Comparison: Previous chest x-ray of 01/13/17. Left sided diaphragmatic hernia is again noted. This causes mild left basilar atelectasis. Heart felt to be enlarged. Previous sternotomy is noted. Lungs otherwise are clear. Degenerative change is noted within both shoulders. Impression: 1. Findings as noted above. No significant change is seen from prior chest x-ray. Diagnostic code #2
[2017-02-02] MEDS: Montelukast 10 MG Tab PO SCH (09:32)
[2017-02-02] MEDS: Gabapentin 100 MG Cap PO SCH ×3 (09:32→21:38)
[2017-02-02] MEDS: Oxybutynin 5 MG Tab PO SCH (09:32)
[2017-02-02] MEDS: Budesonide 0.5 MG/2 ML Neb Susp INH SCH ×2 (09:42→20:56)
[2017-02-02] MEDS ORDERED: Scopolamine 1.5 MG Transdermal Patch TRDERM PRN (13:01)
--- NOTE | 2017-02-02 13:09 | PCM.PN ---
<Catrina Del Cid - Last Filed: 02/02/17 13:04> - General Info Date of Service: 02/02/17 Admission Dx/Problem (Free Text): Admission Diagnosis/Problem Admission Diagnosis/Problem Vertigo Maria Del Rosario was seen this morning resting in bed. She was feeling "woozy". When asked if she feels like the room is spinning she states yes. States this started yesterday morning while getting dressed, lead to a fall at home, states she was not injured in this fall; came on suddenly and has been persistent since that time. She is nauseous, vomited yesterday immediately after dizziness started as was more severe. She continues to be nauseous when the stronger waves of dizziness or vertigo come on. No f/c/s, no CP, SOB (worse than usual, she is chronically SOB on supplemental oxygen at home), palpitations, ADAM, no change in stools. She felt her strength was good after her rehab stay and felt strong when she returned home. Tells me today that she just got home, to [facility], 5 days ago from a rehab stay in [place] after a fall, broke her hip, at home in October. Functional Status: Reports: pain controlled (denies pain), tolerating diet ( clear liquids), ambulating (with assist of 1-2 currently due to dizziness and unsteadiness), urinating - Review of Systems General: Reports: Weakness HEENT: Reports: no symptoms. Denies: headaches, sinus congestion, sore throat, rhinitis Pulmonary: Reports: shortness of breath (chronic and at baseline; supplemental oxygen at home). Denies: pleuritic chest pain, cough Cardiovascular: Reports: Lightheadedness. Denies: Chest Pain, Palpitations, Orthopnea Gastrointestinal: Reports: No symptoms Genitourinary: Reports: no symptoms Musculoskeletal: Reports: leg pain (lt hip - occasional discomfort s/p CRISTI in Oct) Neurological: Reports: Dizziness, Difficulty Walking, Weakness, Gait Disturbance (d/t dizziness). Denies: Confusion, Headache, Numbness, Paresthesia , Tingling, Change in Speech Psychiatric: Reports: no symptoms - Patient Data Vitals - most recent: Last Vital Signs Temp 98.2 F 02/02/17 08:17 Pulse 83 02/02/17 08:17 Resp 18 02/02/17 08:17 BP 120/67 02/02/17 08:17 Pulse Ox 94 L 02/02/17 09:42 Weight - most recent: 63.503 kg Med Orders - Current: Current Medications Acetaminophen (Tylenol) 650 mg PO Q4H PRN PRN Reason: Pain Last Admin: 02/01/17 21:19 Dose: 650 mg Albuterol/Ipratropium (Duoneb 3.0-0.5 Mg/3 Ml) 3 ml NEB QIDRT [facility] Last Admin: 02/02/17 09:42 Dose: 3 ml Budesonide (Pulmicort) 0.5 mg INH BID [facility] Last Admin: 02/02/17 09:42 Dose: 0.5 mg Famotidine (Pepcid) 20 mg PO BID [facility] Gabapentin (Neurontin) 100 mg PO TID [facility] Last Admin: 02/02/17 09:32 Dose: 100 mg Guaifenesin/Phenylephrine HCl (Robitussin Dm) 10 ml PO Q4H PRN PRN Reason: Cough Sodium Chloride (Normal Saline) 1,000 mls @ 75 mls/hr IV ASDIRECTED [facility] Stop: 02/04/17 02:34 Montelukast Sodium (Singulair) 10 mg PO DAILY [facility] Last Admin: 02/02/17 09:32 Dose: 10 mg Ondansetron HCl (Zofran) 4 mg IVPUSH Q8H PRN PRN Reason: Nausea/Vomiting Oxybutynin Chloride (Oxybutynin) 5 mg PO DAILY [facility] Last Admin: 02/02/17 09:32 Dose: 5 mg Potassium Chloride (Potassium Chloride) 40 meq PO BID [facility] Scopolamine (Transderm-Scop) 1.5 mg TRDERM Q72H PRN PRN Reason: Dizziness Sodium Chloride (Saline Flush) 10 ml FLUSH ASDIRECTED PRN PRN Reason: Keep Vein Open Last Admin: 02/01/17 11:54 Dose: 10 ml Sodium Chloride (Saline Flush) 10 ml FLUSH ONETIME PRN PRN Reason: IV FLUSH Last Admin: 02/01/17 14:07 Dose: 10 ml Temazepam (Restoril) 7.5 mg PO BEDTIME PRN PRN Reason: Insomnia Discontinued Medications Albuterol/Ipratropium (Duoneb 3.0-0.5 Mg/3 Ml) 3 ml NEB QID [facility] Sodium Chloride (Normal Saline) 1,000 mls @ 100 mls/hr IV ONETIME ONE Stop: 02/01/17 23:41 Last Admin: 02/01/17 13:46 Dose: 100 mls/hr Sodium Chloride (Normal Saline) 100 mls @ 65 mls/hr IV ASDIRECTED [facility] Last Admin: 02/01/17 14:06 Dose: 65 mls/hr Iopamidol (Isovue-370 (76%)) 100 ml IVPUSH ONETIME ONE Stop: 02/01/17 13:45 Last Admin: 02/01/17 14:08 Dose: 75 ml Meclizine HCl (Antivert) 12.5 mg PO ONETIME ONE Stop: 02/01/17 13:02 Last Admin: 02/01/17 16:01 Dose: Not Given Meclizine HCl (Antivert) 12.5 mg PO ONETIME ONE Stop: 02/01/17 16:31 Last Admin: 02/01/17 16:41 Dose: 12.5 mg Metoclopramide HCl (Reglan) 10 mg IVPUSH ONETIME ONE Stop: 02/01/17 13:18 Last Admin: 02/01/17 13:28 Dose: 10 mg Ondansetron HCl (Zofran) 4 mg IVPUSH ONETIME ONE Stop: 02/01/17 11:49 Last Admin: 02/01/17 11:53 Dose: 4 mg Pantoprazole Sodium (Protonix Iv) 40 mg IV ACBREAKFAST [facility] Last Admin: 02/02/17 06:43 Dose: 40 mg Promethazine HCl (Phenergan) 12.5 mg IM ONETIME ONE Stop: 02/01/17 16:31 Last Admin: 02/01/17 16:41 Dose: 12.5 mg - Exam Quality Assessment: supplemental oxygen General: alert, oriented, cooperative, no acute distress HEENT: Pupils equal, Pupils reactive, EOMI, Mucous membr. moist/pink, Other (no nystagmus noted) Neck: supple Lungs: Clear to auscultation, Normal respiratory effort, Decreased breath sounds (to bases) Cardiovascular: Irregular Rhythm Abdomen: bowel sounds present, soft, no tenderness, no distension (Female) Exam: Deferred Back Exam: Normal Inspection Extremities: no edema, no calf tenderness Peripheral Pulses: 1+: Dorsalis Pedis (L), Dorsalis Pedis (R) Skin: warm, dry Wound/Incisions: other (incision to lt hip healed and with wound edges nicely intact, no erythema ) Neurological: normal speech, normal tone, cranial nerves intact Psy/Mental Status: alert, normal affect, normal mood - Problem List & Annotations (1) Vertigo SNOMED Code(s): 015180411 Code(s): R42 - DIZZINESS AND GIDDINESS Status: Acute Priority: High Current Visit: Yes (2) Nausea & vomiting SNOMED Code(s): 42875875 Code(s): R11.2 - NAUSEA WITH VOMITING, UNSPECIFIED Status: Acute Priority : High Current Visit: Yes Qualifiers: Vomiting type: unspecified (3) Hypokalemia SNOMED Code(s): 33954552 Code(s): E87.6 - HYPOKALEMIA Status: Acute Priority: High Current Visit : Yes (4) Fall at home SNOMED Code(s): 41816460 Code(s): W19.XXXA - UNSPECIFIED FALL, INITIAL ENCOUNTER; Y92.099 - UNSP PLACE IN OTH NON-INSTITUTIONAL RESIDENCE PLACE Status: Acute Priority: High Current Visit: Yes Qualifiers: Encounter type: initial encounter Qualified Code(s): W19.XXXA - Unspecified fall, initial encounter; Y92.099 - Unspecified place in other non- institutional residence as the place of occurrence of the external cause - Problem List Review Problem List Initiated/Reviewed/Updated: Yes - My Orders Last 24 Hours: My Active Orders 02/02/17 12:57 Antiembolic Devices [RC] PER UNIT ROUTINE ESDRAS Hose [Antiembolic Hose] [OM.PC] Routine 02/02/17 12:58 Consult to Case Management [CONS] Routine Consult to Committee Member [CONS] Routine 02/02/17 13:01 Scopolamine [Transderm-Scop] 1.5 mg TRDERM Q72H PRN 02/02/17 13:03 FE, TIBC, TRANSFERRIN, FE SAT [CHEM] Routine 02/02/17 13:15 Sodium Chloride 0.9% @ 75 MLS/HR(1000ml Bag) Sodium Chloride 0.9% [Normal Saline] 1,000 ml IV ASDIRECTED 02/02/17 21:00 Famotidine [Pepcid] 20 mg PO BID 02/03/17 08:00 Ang Head w Cont [MR] Routine Ang Head w Cont [MR] Routine Ang Neck w Cont [MR] Routine Ang Neck w Cont [MR] Routine - Plan Plan:: I/P: Vertigo with associated nausea/vomiting and recurrent falls at home: -Head CT negative in ED -D-Dimer was elevated with negative CTA aside from stable aortic aneurysm noted -PT consult for vestibular maneuvers, eval and tx -Will order MRA of head and neck for tomorrow as had contrast load <24 hours ago (although normal renal function) -Check on most recent echocardiogram -Telemetry Hypokalemia -Replace and monitor daily am labs: BMP and mag Anemia -Recent CRISTI -Check iron panel Chronic conditions: Continue home medications Hx CHF HTN COPD OAB Hx of recurrent PNA Other: GI prophylax DVT prohylax CM/SW for assistance with DC planning; would recommend SNF as multiple falls, ER visits and hospitalizations over the past 5 months. PT/OT IVF for gently hydration; caution with hx of CHF Supplemental O2 to keep sats >90% Patient is DNR/DNI status. <Cuca Anguiano - Last Filed: 02/03/17 19:50> - Patient Data Vitals - most recent: Last Vital Signs Temp 37.6 C 02/03/17 14:43 Pulse 85 02/03/17 14:43 Resp 14 02/03/17 14:43 BP 119/76 02/03/17 14:43 Pulse Ox 97 02/03/17 15:26 I&O - last 24 hours: Intake & Output 02/03/17 02/03/17 02/03/17 06:59 14:59 22:59 Intake Total 7328 430 8532 Output Total 400 700 Balance 1331 450 415 Lab Results last 24 hrs: Laboratory Results - last 24 hr 02/03/17 02/03/17 Range/Units 04:45 04:45 WBC 7.76 (3.98-10.04) K/mm3 RBC 3.49 L (3.98-5.22) M/mm3 Hgb 9.3 L (11.2-15.7) gm/L Hct 30.9 L (34.1-44.9) % MCV 88.5 (79.4-94.8) fl MCH 26.6 (25.6-32.2) pg MCHC 30.1 L (32.2-35.5) g/dl RDW Std Deviation 59.8 H (36.4-46.3) fL Plt Count 284 (182-369) K/mm3 MPV 10.9 (9.4-12.3) fl Neut % (Auto) 64.4 (34.0-71.1) % Lymph % (Auto) 12.9 L (19.3-51.7) % Nelson % (Auto) 14.9 H (4.7-12.5) % Eos % (Auto) 7.1 H (0.7-5.8) Baso % (Auto) 0.6 (0.1-1.2) % Neut # (Auto) 4.99 (1.56-6.13) K/mm3 Lymph # (Auto) 1.00 L (1.18-3.74) K/mm3 Nelson # (Auto) 1.16 H (0.24-0.36) K/mm3 Eos # (Auto) 0.55 H (0.04-0.36) K/mm3 Baso # (Auto) 0.05 (0.01-0.08) K/mm3 Sodium 142 (136-145) mEq/L Potassium 3.3 L (3.5-5.1) mEq/L Chloride 106 (98-107) mEq/L Carbon Dioxide 29 (21-32) mEq/L Anion Gap 10.3 (5-15) BUN 9 (7-18) mg/dL Creatinine 0.6 (0.55-1.02) mg/dL Est Cr Clr Drug Dosing 58.77 mL/min Estimated GFR (MDRD) > 60 (>60) mL/min BUN/Creatinine Ratio 15.0 (14-18) Glucose 89 (83-115) mg/dL Calcium 8.3 L (8.5-10.1) mg/dL C-Reactive Protein 1.5 H* (<1.0) mg/dL Med Orders - Current: Current Medications Acetaminophen (Tylenol) 650 mg PO Q4H PRN PRN Reason: Pain Last Admin: 02/01/17 21:19 Dose: 650 mg Albuterol/Ipratropium (Duoneb 3.0-0.5 Mg/3 Ml) 3 ml NEB QIDRT [facility] Last Admin: 02/03/17 15:25 Dose: 3 ml Aspirin (Aspirin) 81 mg PO DAILY [facility] Last Admin: 02/03/17 12:58 Dose: 81 mg Budesonide (Pulmicort) 0.5 mg INH BID [facility] Last Admin: 02/03/17 10:10 Dose: 0.5 mg Famotidine (Pepcid) 20 mg PO BID [facility] Last Admin: 02/03/17 08:08 Dose: 20 mg Ferrous Sulfate (Ferrous Sulfate) 325 mg PO WITHBREAKFAST [facility] Last Admin: 02/03/17 06:21 Dose: 325 mg Gabapentin (Neurontin) 100 mg PO TID [facility] Last Admin: 02/03/17 16:14 Dose: 100 mg Guaifenesin/Phenylephrine HCl (Robitussin Dm) 10 ml PO Q4H PRN PRN Reason: Cough Sodium Chloride (Normal Saline) 1,000 mls @ 75 mls/hr IV ASDIRECTED [facility] Stop: 02/04/17 02:34 Last Admin: 02/03/17 08:06 Dose: 75 mls/hr Lisinopril (Prinivil) 5 mg PO DAILY [facility] Last Admin: 02/03/17 12:58 Dose: 5 mg Miscellaneous Information (Remove Patch) 0 ea TRDERM Q72H [facility] Montelukast Sodium (Singulair) 10 mg PO DAILY [facility] Last Admin: 02/03/17 08:08 Dose: 10 mg Ondansetron HCl (Zofran) 4 mg IVPUSH Q8H PRN PRN Reason: Nausea/Vomiting Oxybutynin Chloride (Oxybutynin) 5 mg PO DAILY [facility] Last Admin: 02/03/17 08:08 Dose: 5 mg Potassium Chloride (Potassium Chloride) 40 meq PO BID [facility] Last Admin: 02/03/17 08:08 Dose: 40 meq Prednisone (Prednisone) 5 mg PO DAILY [facility] Last Admin: 02/03/17 08:42 Dose: 5 mg Scopolamine (Transderm-Scop) 1.5 mg TRDERM Q72H PRN PRN Reason: Dizziness Sodium Chloride (Saline Flush) 10 ml FLUSH ASDIRECTED PRN PRN Reason: Keep Vein Open Last Admin: 02/01/17 11:54 Dose: 10 ml Sodium Chloride (Saline Flush) 10 ml FLUSH ONETIME PRN PRN Reason: IV FLUSH Last Admin: 02/01/17 14:07 Dose: 10 ml Temazepam (Restoril) 7.5 mg PO BEDTIME PRN PRN Reason: Insomnia Discontinued Medications Albuterol/Ipratropium (Duoneb 3.0-0.5 Mg/3 Ml) 3 ml NEB QID TONY Gadobenate Dimeglumine (Multihance) 20 ml IVPUSH ONETIME ONE Stop: 02/03/17 09:31 Last Admin: 02/03/17 10:04 Dose: 20 ml Gadobenate Dimeglumine (Multihance) 20 ml IVPUSH ONETIME ONE Stop: 02/03/17 10:04 Last Admin: 02/03/17 12:58 Dose: Not Given Sodium Chloride (Normal Saline) 1,000 mls @ 100 mls/hr IV ONETIME ONE Stop: 02/01/17 23:41 Last Admin: 02/01/17 13:46 Dose: 100 mls/hr Sodium Chloride (Normal Saline) 100 mls @ 65 mls/hr IV ASDIRECTED [facility] Last Admin: 02/01/17 14:06 Dose: 65 mls/hr Iopamidol (Isovue-370 (76%)) 100 ml IVPUSH ONETIME ONE Stop: 02/01/17 13:45 Last Admin: 02/01/17 14:08 Dose: 75 ml Meclizine HCl (Antivert) 12.5 mg PO ONETIME ONE Stop: 02/01/17 13:02 Last Admin: 02/01/17 16:01 Dose: Not Given Meclizine HCl (Antivert) 12.5 mg PO ONETIME ONE Stop: 02/01/17 16:31 Last Admin: 02/01/17 16:41 Dose: 12.5 mg Metoclopramide HCl (Reglan) 10 mg IVPUSH ONETIME ONE Stop: 02/01/17 13:18 Last Admin: 02/01/17 13:28 Dose: 10 mg Ondansetron HCl (Zofran) 4 mg IVPUSH ONETIME ONE Stop: 02/01/17 11:49 Last Admin: 02/01/17 11:53 Dose: 4 mg Pantoprazole Sodium (Protonix Iv) 40 mg IV ACBREAKFAST [facility] Last Admin: 02/02/17 06:43 Dose: 40 mg Potassium Chloride (Potassium Chloride) 40 meq PO ONETIME ONE Stop: 02/03/17 08:10 Last Admin: 02/03/17 08:42 Dose: 40 meq Promethazine HCl (Phenergan) 12.5 mg IM ONETIME ONE Stop: 02/01/17 16:31 Last Admin: 02/01/17 16:41 Dose: 12.5 mg Sodium Chloride (Saline Flush) 40 ml FLUSH ONETIME PRN PRN Reason: Keep Vein Open Stop: 02/03/17 18:00 Last Admin: 02/03/17 10:04 Dose: 40 ml - Problem List & Annotations (1) Fall at home SNOMED Code(s): 86000760 Code(s): W19.XXXA - UNSPECIFIED FALL, INITIAL ENCOUNTER; Y92.099 - UNSP PLACE IN OTH NON-INSTITUTIONAL RESIDENCE PLACE Status: Acute Priority: High Current Visit: Yes Qualifiers: Encounter type: initial encounter Qualified Code(s): W19.XXXA - Unspecified fall, initial encounter; Y92.099 - Unspecified place in other non- institutional residence as the place of occurrence of the external cause (2) Nausea & vomiting SNOMED Code(s): 91474457 Code(s): R11.2 - NAUSEA WITH VOMITING, UNSPECIFIED Status: Acute Priority : High Current Visit: Yes Qualifiers: Vomiting type: unspecified (3) Vertigo SNOMED Code(s): 116265512 Code(s): R42 - DIZZINESS AND GIDDINESS Status: Acute Priority: High Current Visit: Yes - My Orders Last 24 Hours: My Active Orders 02/05/17 13:00 Remove Patch 0 ea TRDERM Q72H - Plan Plan:: Frequent falls, will evaluate posterior circulation
[2017-02-02] MEDS: Sodium Chloride 0.9% 1,000 ML IV SCH (13:34)
[2017-02-02] MEDS: Famotidine 20 MG Tab PO SCH (21:38)
[2017-02-02] MEDS: Potassium Chloride 10% 20 MEQ/15 ML Soln 30 ML UD Cup PO SCH (21:39)
[2017-02-03] MEDS: Ferrous Sulfate 325 MG Tab PO SCH (06:21)
[2017-02-03] MEDS: Albuterol/Ipratropium 3.0-0.5 MG/3 ML Neb Soln NEB SCH ×4 (06:51→20:12)
[2017-02-03] MEDS: Sodium Chloride 0.9% 1,000 ML IV SCH (08:06)
[2017-02-03] MEDS: Montelukast 10 MG Tab PO SCH (08:08)
[2017-02-03] MEDS: Oxybutynin 5 MG Tab PO SCH (08:08)
[2017-02-03] MEDS: Famotidine 20 MG Tab PO SCH ×2 (08:08→20:33)
[2017-02-03] MEDS: Gabapentin 100 MG Cap PO SCH ×3 (08:08→20:33)
[2017-02-03] MEDS: Potassium Chloride 10% 20 MEQ/15 ML Soln 30 ML UD Cup PO SCH ×2 (08:08→20:33)
[2017-02-03] MEDS ORDERED: Potassium Chloride 10% 20 MEQ/15 ML Soln 30 ML UD Cup PO ONE (08:09)
[2017-02-03] MEDS: predniSONE 5 MG Tab PO SCH (08:42)
[2017-02-03] MEDS ORDERED: Sodium Chloride 0.9% 10 ML Syringe FLUSH PRN (09:30)
[2017-02-03] MEDS: Gadobenate Dimeglumine 529 MG/ML 20 ML SDV IVPUSH ONE ×2 (09:58→10:04)
[2017-02-03] MEDS ORDERED: Gadobenate Dimeglumine 529 MG/ML 20 ML SDV IVPUSH ONE (10:03)
[2017-02-03] MEDS: Budesonide 0.5 MG/2 ML Neb Susp INH SCH ×2 (10:10→20:12)
--- NOTE | 2017-02-03 10:31 | MR ---
MRI brain (with and without contrast) Technique: T1 sagittal; T2, T1, T2 FLAIR and diffusion axial; T1 FLAIR coronal; thin T2 gradient echo axial through the internal auditory canals; post gadolinium T1 axial and post gadolinium T1 FLAIR coronal images were obtained. Comparison: Previous head CT exam of 02/01/17. Findings: Ventricles along with basal cisterns and sulci over the convexities appear moderately prominent. Areas of increased signal are noted on the long TR sequence within the periventricular and subcortical white matter which is compatible with small vessel ischemic demyelination change. Increased signal is seen within the right cerebellar hemisphere which shows corresponding diffusion abnormality compatible with fairly recent infarct. No other diffusion abnormalities are seen. No abnormal areas of enhancement are seen. Impression: 1. Senescent change as described above. 2. 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 Diagnostic code #3
[2017-02-03] MEDS ORDERED: Aspirin 81 MG Tab.Chew PO SCH (11:00)
--- NOTE | 2017-02-03 11:25 | MR ---
MR angiogram of brain Technique: [id number] MRA angiogram sequence was obtained centered to the [place]. Multiple MIP images were reconstructed in multiple angles. Findings: Distal internal carotid arteries are patent. There is some limited visualization of the more distal left MCA. Right MCA appears patent. Small right A1 segment is seen which is possibly developmental. Blood is mostly supplied to the anterior cerebral arteries by the left anterior communicating artery. There is interruption of the right vertebral artery distally prior to the basilar artery. Basilar artery is supplied by the left vertebral artery. Right vertebral artery is dominant over the left side. Uncertain if this interruption of the right vertebral artery is normal variant versus occlusion. Posterior cerebral arteries are small on both sides likely representing diminished flow. Impression: 1. 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 Basilar artery is supplied by a smaller left vertebral artery. Both posterior cerebral arteries are diminutive in size. Uncertain if the interruption of the right vertebral artery is normal variant or represents atherosclerotic occlusion. I believe the latter is more likely given the small size of the posterior cerebral arteries. 2. Other incidental findings as described above. Diagnostic code #3
--- NOTE | 2017-02-03 11:25 | MR ---
MR angiogram of neck Technique: Post gadolinium MR angiogram study was obtained of the neck. Comparison: No previous imaging of the neck. Findings: Common carotid arteries on both sides appear patent. Carotid bulbs appear without significant stenosis. Proximal external carotid arteries are within normal limits. Internal carotid artery show no significant stenosis. Diminutive right A1 segment which is likely normal variant. Anterior cerebral artery circulation supplied by the left side with patent left A1 segment. Distal right vertebral artery shows no flow. Left vertebral artery supplies the basilar artery. Impression: 1. 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 2. Anterior cerebral artery supplied by a patent left A1 segment. Poorly seen right A1 segment which is likely normal variant. 3. Other portions of the MR angiogram study of the neck appear unremarkable. Diagnostic code #3
[2017-02-03] MEDS: Lisinopril 5 MG Tab PO SCH (12:58)
--- NOTE | 2017-02-03 15:43 | PCM.SN ---
- Free Text/Narrative Note: 1505 called for IV start in room at 1514 24ga. IV start to left hand good flush good blood return out room at 1541
--- NOTE | 2017-02-03 16:28 | PCM.PN ---
<Catrina Del Cid M - Last Filed: 02/03/17 16:20> - General Info Date of Service: 02/03/17 Admission Dx/Problem (Free Text): Admission Diagnosis/Problem Admission Diagnosis/Problem Vertigo Maria Del Rosario is seen this morning; she feels much better today, dizziness is much better, nausea is resolved. She slept well last night. No pain currently other than chronic neck pain/arthritis pain. No f/c/s. She states she feels unsteady and "woozy" when she is up and ambulatory. Functional Status: Reports: tolerating diet, ambulating, urinating - Review of Systems General: Reports: Weakness HEENT: Reports: no symptoms Pulmonary: Reports: shortness of breath (chronic- at baseline). Denies: pleuritic chest pain, cough Cardiovascular: Reports: Dyspnea on Exertion (chronic and at baseline). Denies : Chest Pain, Palpitations Gastrointestinal: Reports: No symptoms Genitourinary: Reports: no symptoms Musculoskeletal: Reports: neck pain (chronic arthritic neck pain) Neurological: Reports: Dizziness (improved but still present), Difficulty Walking (recurrent falls), Gait Disturbance (recurrent falls). Denies: Headache , Numbness, Tingling, Trouble Speaking Psychiatric: Reports: no symptoms - Patient Data Vitals - most recent: Last Vital Signs Temp 99.7 F 02/03/17 14:43 Pulse 85 02/03/17 14:43 Resp 14 02/03/17 14:43 BP 119/76 02/03/17 14:43 Pulse Ox 97 02/03/17 15:26 Weight - most recent: 60.645 kg I&O - last 24 hours: Intake & Output 02/03/17 02/03/17 02/03/17 06:59 14:59 22:59 Intake Total 1731 450 500 Output Total 400 700 Balance 1331 450 -200 Lab Results last 24 hrs: Laboratory Results - last 24 hr 02/03/17 02/03/17 Range/Units 04:45 04:45 WBC 7.76 (3.98-10.04) K/mm3 RBC 3.49 L (3.98-5.22) M/mm3 Hgb 9.3 L (11.2-15.7) gm/L Hct 30.9 L (34.1-44.9) % MCV 88.5 (79.4-94.8) fl MCH 26.6 (25.6-32.2) pg MCHC 30.1 L (32.2-35.5) g/dl RDW Std Deviation 59.8 H (36.4-46.3) fL Plt Count 284 (182-369) K/mm3 MPV 10.9 (9.4-12.3) fl Neut % (Auto) 64.4 (34.0-71.1) % Lymph % (Auto) 12.9 L (19.3-51.7) % [place] % (Auto) 14.9 H (4.7-12.5) % Eos % (Auto) 7.1 H (0.7-5.8) Baso % (Auto) 0.6 (0.1-1.2) % Neut # (Auto) 4.99 (1.56-6.13) K/mm3 Lymph # (Auto) 1.00 L (1.18-3.74) K/mm3 [place] # (Auto) 1.16 H (0.24-0.36) K/mm3 Eos # (Auto) 0.55 H (0.04-0.36) K/mm3 Baso # (Auto) 0.05 (0.01-0.08) K/mm3 Sodium 142 (136-145) mEq/L Potassium 3.3 L (3.5-5.1) mEq/L Chloride 106 (98-107) mEq/L Carbon Dioxide 29 (21-32) mEq/L Anion Gap 10.3 (5-15) BUN 9 (7-18) mg/dL Creatinine 0.6 (0.55-1.02) mg/dL Est Cr Clr Drug Dosing 58.77 mL/min Estimated GFR (MDRD) > 60 (>60) mL/min BUN/Creatinine Ratio 15.0 (14-18) Glucose 89 (83-115) mg/dL Calcium 8.3 L (8.5-10.1) mg/dL C-Reactive Protein 1.5 H* (<1.0) mg/dL Med Orders - Current: Current Medications Acetaminophen (Tylenol) 650 mg PO Q4H PRN PRN Reason: Pain Last Admin: 02/01/17 21:19 Dose: 650 mg Albuterol/Ipratropium (Duoneb 3.0-0.5 Mg/3 Ml) 3 ml NEB QIDRT [facility] Last Admin: 02/03/17 15:25 Dose: 3 ml Aspirin (Aspirin) 81 mg PO DAILY [facility] Last Admin: 02/03/17 12:58 Dose: 81 mg Budesonide (Pulmicort) 0.5 mg INH BID [facility] Last Admin: 02/03/17 10:10 Dose: 0.5 mg Famotidine (Pepcid) 20 mg PO BID [facility] Last Admin: 02/03/17 08:08 Dose: 20 mg Ferrous Sulfate (Ferrous Sulfate) 325 mg PO WITHBREAKFAST [facility] Last Admin: 02/03/17 06:21 Dose: 325 mg Gabapentin (Neurontin) 100 mg PO TID [facility] Last Admin: 02/03/17 16:14 Dose: 100 mg Guaifenesin/Phenylephrine HCl (Robitussin Dm) 10 ml PO Q4H PRN PRN Reason: Cough Sodium Chloride (Normal Saline) 1,000 mls @ 75 mls/hr IV ASDIRECTED [facility] Stop: 02/04/17 02:34 Last Admin: 02/03/17 08:06 Dose: 75 mls/hr Lisinopril (Prinivil) 5 mg PO DAILY [facility] Last Admin: 02/03/17 12:58 Dose: 5 mg Miscellaneous Information (Remove Patch) 0 ea TRDERM Q72H [facility] Montelukast Sodium (Singulair) 10 mg PO DAILY [facility] Last Admin: 02/03/17 08:08 Dose: 10 mg Ondansetron HCl (Zofran) 4 mg IVPUSH Q8H PRN PRN Reason: Nausea/Vomiting Oxybutynin Chloride (Oxybutynin) 5 mg PO DAILY [facility] Last Admin: 02/03/17 08:08 Dose: 5 mg Potassium Chloride (Potassium Chloride) 40 meq PO BID [facility] Last Admin: 02/03/17 08:08 Dose: 40 meq Prednisone (Prednisone) 5 mg PO DAILY [facility] Last Admin: 02/03/17 08:42 Dose: 5 mg Scopolamine (Transderm-Scop) 1.5 mg TRDERM Q72H PRN PRN Reason: Dizziness Sodium Chloride (Saline Flush) 10 ml FLUSH ASDIRECTED PRN PRN Reason: Keep Vein Open Last Admin: 02/01/17 11:54 Dose: 10 ml Sodium Chloride (Saline Flush) 10 ml FLUSH ONETIME PRN PRN Reason: IV FLUSH Last Admin: 02/01/17 14:07 Dose: 10 ml Sodium Chloride (Saline Flush) 40 ml FLUSH ONETIME PRN PRN Reason: Keep Vein Open Stop: 02/03/17 18:00 Last Admin: 02/03/17 10:04 Dose: 40 ml Temazepam (Restoril) 7.5 mg PO BEDTIME PRN PRN Reason: Insomnia Discontinued Medications Albuterol/Ipratropium (Duoneb 3.0-0.5 Mg/3 Ml) 3 ml NEB QID [facility] Gadobenate Dimeglumine (Multihance) 20 ml IVPUSH ONETIME ONE Stop: 02/03/17 09:31 Last Admin: 02/03/17 10:04 Dose: 20 ml Gadobenate Dimeglumine (Multihance) 20 ml IVPUSH ONETIME ONE Stop: 02/03/17 10:04 Last Admin: 02/03/17 12:58 Dose: Not Given Sodium Chloride (Normal Saline) 1,000 mls @ 100 mls/hr IV ONETIME ONE Stop: 02/01/17 23:41 Last Admin: 02/01/17 13:46 Dose: 100 mls/hr Sodium Chloride (Normal Saline) 100 mls @ 65 mls/hr IV ASDIRECTED [facility]ON[facility] Last Admin: 02/01/17 14:06 Dose: 65 mls/hr Iopamidol (Isovue-370 (76%)) 100 ml IVPUSH ONETIME ONE Stop: 02/01/17 13:45 Last Admin: 02/01/17 14:08 Dose: 75 ml Meclizine HCl (Antivert) 12.5 mg PO ONETIME ONE Stop: 02/01/17 13:02 Last Admin: 02/01/17 16:01 Dose: Not Given Meclizine HCl (Antivert) 12.5 mg PO ONETIME ONE Stop: 02/01/17 16:31 Last Admin: 02/01/17 16:41 Dose: 12.5 mg Metoclopramide HCl (Reglan) 10 mg IVPUSH ONETIME ONE Stop: 02/01/17 13:18 Last Admin: 02/01/17 13:28 Dose: 10 mg Ondansetron HCl (Zofran) 4 mg IVPUSH ONETIME ONE Stop: 02/01/17 11:49 Last Admin: 02/01/17 11:53 Dose: 4 mg Pantoprazole Sodium (Protonix Iv) 40 mg IV ACBREAKFAST [facility]ON[facility] Last Admin: 02/02/17 06:43 Dose: 40 mg Potassium Chloride (Potassium Chloride) 40 meq PO ONETIME ONE Stop: 02/03/17 08:10 Last Admin: 02/03/17 08:42 Dose: 40 meq Promethazine HCl (Phenergan) 12.5 mg IM ONETIME ONE Stop: 02/01/17 16:31 Last Admin: 02/01/17 16:41 Dose: 12.5 mg - Exam Quality Assessment: supplemental oxygen, DVT prophylaxis General: alert, oriented, cooperative, no acute distress HEENT: Pupils equal, Pupils reactive, EOMI, Mucous membr. moist/pink Neck: supple Lungs: Clear to auscultation, Normal respiratory effort, Decreased breath sounds , Wheezing (scattered) Cardiovascular: Regular Rate, Regular Rhythm Abdomen: bowel sounds present, soft, no tenderness, no distension (Female) Exam: Deferred Back Exam: Normal Inspection Extremities: no calf tenderness, edema (trace to LE bilat; teds bilat) Peripheral Pulses: 1+: Dorsalis Pedis (L), Dorsalis Pedis (R) Skin: warm, dry Neurological: no new focal deficit, normal speech, normal tone Psy/Mental Status: alert, normal affect, normal mood - Problem List & Annotations (1) Vertigo SNOMED Code(s): 501510787 Code(s): R42 - DIZZINESS AND GIDDINESS Status: Acute Priority: High Current Visit: Yes (2) Nausea & vomiting SNOMED Code(s): 99548617 Code(s): R11.2 - NAUSEA WITH VOMITING, UNSPECIFIED Status: Acute Priority : High Current Visit: Yes Qualifiers: Vomiting type: unspecified (3) Hypokalemia SNOMED Code(s): 21517230 Code(s): E87.6 - HYPOKALEMIA Status: Acute Priority: High Current Visit : Yes (4) Fall at home SNOMED Code(s): 68650214 Code(s): W19.XXXA - UNSPECIFIED FALL, INITIAL ENCOUNTER; Y92.099 - UNSP PLACE IN [facility] NON-INSTITUTIONAL RESIDENCE PLACE Status: Acute Priority: High Current Visit: Yes Qualifiers: Encounter type: initial encounter Qualified Code(s): W19.XXXA - Unspecified fall, initial encounter; Y92.099 - Unspecified place in other non- institutional residence as the place of occurrence of the external cause (5) New cerebellar infarct SNOMED Code(s): 51058247 Code(s): I63.9 - CEREBRAL INFARCTION, UNSPECIFIED Status: Acute Priority : High Current Visit: Yes (6) Occlusion of right vertebral artery SNOMED Code(s): 666270809 Code(s): I65.01 - OCCLUSION AND STENOSIS OF RIGHT VERTEBRAL ARTERY Status: Acute Priority: High Current Visit: Yes - Problem List Review Problem List Initiated/Reviewed/Updated: Yes - My Orders Last 24 Hours: My Active Orders 02/02/17 21:00 Famotidine [Pepcid] 20 mg PO BID 02/03/17 07:00 Ferrous Sulfate 325 mg PO WITHBREAKFAST 02/03/17 09:00 predniSONE 5 mg PO DAILY 02/03/17 11:00 Aspirin 81 mg PO DAILY Lisinopril [Prinivil] 5 mg PO DAILY 02/03/17 Lunch Heart Healthy Diet [DIET] - Plan Plan:: Impression: Acute right cerebellar infarct on MRI brain 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 Dizziness with unsteady gait and recurrent falls--etiology as above s/p recent left hip fracture Chronic: CHF HTN COPD Hx of PNA Plan: Start ASA 325mg QD Lisinopril 10mg QD for improved b/p control Cont other home meds PT for balance and strengthening SW for DC planning; recommend SNF/Rehab stay DVT/GI prophylaxis Patient is DNR/DNI <Cuca Anguiano - Last Filed: 02/03/17 17:46> - Patient Data Vitals - most recent: Last Vital Signs Temp 37.6 C 02/03/17 14:43 Pulse 85 02/03/17 14:43 Resp 14 02/03/17 14:43 BP 119/76 02/03/17 14:43 Pulse Ox 97 02/03/17 15:26 I&O - last 24 hours: Intake & Output 02/03/17 02/03/17 02/03/17 06:59 14:59 22:59 Intake Total 1731 450 995 Output Total 400 700 Balance 1331 450 295 Lab Results last 24 hrs: Laboratory Results - last 24 hr 02/03/17 02/03/17 Range/Units 04:45 04:45 WBC 7.76 (3.98-10.04) K/mm3 RBC 3.49 L (3.98-5.22) M/mm3 Hgb 9.3 L (11.2-15.7) gm/L Hct 30.9 L (34.1-44.9) % MCV 88.5 (79.4-94.8) fl MCH 26.6 (25.6-32.2) pg MCHC 30.1 L (32.2-35.5) g/dl RDW Std Deviation 59.8 H (36.4-46.3) fL Plt Count 284 (182-369) K/mm3 MPV 10.9 (9.4-12.3) fl Neut % (Auto) 64.4 (34.0-71.1) % Lymph % (Auto) 12.9 L (19.3-51.7) % [place] % (Auto) 14.9 H (4.7-12.5) % Eos % (Auto) 7.1 H (0.7-5.8) Baso % (Auto) 0.6 (0.1-1.2) % Neut # (Auto) 4.99 (1.56-6.13) K/mm3 Lymph # (Auto) 1.00 L (1.18-3.74) K/mm3 [place] # (Auto) 1.16 H (0.24-0.36) K/mm3 Eos # (Auto) 0.55 H (0.04-0.36) K/mm3 Baso # (Auto) 0.05 (0.01-0.08) K/mm3 Sodium 142 (136-145) mEq/L Potassium 3.3 L (3.5-5.1) mEq/L Chloride 106 (98-107) mEq/L Carbon Dioxide 29 (21-32) mEq/L Anion Gap 10.3 (5-15) BUN 9 (7-18) mg/dL Creatinine 0.6 (0.55-1.02) mg/dL Est Cr Clr Drug Dosing 58.77 mL/min Estimated GFR (MDRD) > 60 (>60) mL/min BUN/Creatinine Ratio 15.0 (14-18) Glucose 89 (83-115) mg/dL Calcium 8.3 L (8.5-10.1) mg/dL C-Reactive Protein 1.5 H* (<1.0) mg/dL Med Orders - Current: Current Medications Acetaminophen (Tylenol) 650 mg PO Q4H PRN PRN Reason: Pain Last Admin: 02/01/17 21:19 Dose: 650 mg Albuterol/Ipratropium (Duoneb 3.0-0.5 Mg/3 Ml) 3 ml NEB QIDRT [facility] Last Admin: 02/03/17 15:25 Dose: 3 ml Aspirin (Aspirin) 81 mg PO DAILY [facility] Last Admin: 02/03/17 12:58 Dose: 81 mg Budesonide (Pulmicort) 0.5 mg INH BID [facility] Last Admin: 02/03/17 10:10 Dose: 0.5 mg Famotidine (Pepcid) 20 mg PO BID [facility] Last Admin: 02/03/17 08:08 Dose: 20 mg Ferrous Sulfate (Ferrous Sulfate) 325 mg PO WITHBREAKFAST [facility] Last Admin: 02/03/17 06:21 Dose: 325 mg Gabapentin (Neurontin) 100 mg PO TID [facility] Last Admin: 02/03/17 16:14 Dose: 100 mg Guaifenesin/Phenylephrine HCl (Robitussin Dm) 10 ml PO Q4H PRN PRN Reason: Cough Sodium Chloride (Normal Saline) 1,000 mls @ 75 mls/hr IV ASDIRECTED [facility] Stop: 02/04/17 02:34 Last Admin: 02/03/17 08:06 Dose: 75 mls/hr Lisinopril (Prinivil) 5 mg PO DAILY [facility] Last Admin: 02/03/17 12:58 Dose: 5 mg Miscellaneous Information (Remove Patch) 0 ea TRDERM Q72H [facility] Montelukast Sodium (Singulair) 10 mg PO DAILY [facility] Last Admin: 02/03/17 08:08 Dose: 10 mg Ondansetron HCl (Zofran) 4 mg IVPUSH Q8H PRN PRN Reason: Nausea/Vomiting Oxybutynin Chloride (Oxybutynin) 5 mg PO DAILY [facility] Last Admin: 02/03/17 08:08 Dose: 5 mg Potassium Chloride (Potassium Chloride) 40 meq PO BID [facility] Last Admin: 02/03/17 08:08 Dose: 40 meq Prednisone (Prednisone) 5 mg PO DAILY [facility] Last Admin: 02/03/17 08:42 Dose: 5 mg Scopolamine (Transderm-Scop) 1.5 mg TRDERM Q72H PRN PRN Reason: Dizziness Sodium Chloride (Saline Flush) 10 ml FLUSH ASDIRECTED PRN PRN Reason: Keep Vein Open Last Admin: 02/01/17 11:54 Dose: 10 ml Sodium Chloride (Saline Flush) 10 ml FLUSH ONETIME PRN PRN Reason: IV FLUSH Last Admin: 02/01/17 14:07 Dose: 10 ml Sodium Chloride (Saline Flush) 40 ml FLUSH ONETIME PRN PRN Reason: Keep Vein Open Stop: 02/03/17 18:00 Last Admin: 02/03/17 10:04 Dose: 40 ml Temazepam (Restoril) 7.5 mg PO BEDTIME PRN PRN Reason: Insomnia Discontinued Medications Albuterol/Ipratropium (Duoneb 3.0-0.5 Mg/3 Ml) 3 ml NEB QID [facility] Gadobenate Dimeglumine (Multihance) 20 ml IVPUSH ONETIME ONE Stop: 02/03/17 09:31 Last Admin: 02/03/17 10:04 Dose: 20 ml Gadobenate Dimeglumine (Multihance) 20 ml IVPUSH ONETIME ONE Stop: 02/03/17 10:04 Last Admin: 02/03/17 12:58 Dose: Not Given Sodium Chloride (Normal Saline) 1,000 mls @ 100 mls/hr IV ONETIME ONE Stop: 02/01/17 23:41 Last Admin: 02/01/17 13:46 Dose: 100 mls/hr Sodium Chloride (Normal Saline) 100 mls @ 65 mls/hr IV ASDIRECTED [facility] Last Admin: 02/01/17 14:06 Dose: 65 mls/hr Iopamidol (Isovue-370 (76%)) 100 ml IVPUSH ONETIME ONE Stop: 02/01/17 13:45 Last Admin: 02/01/17 14:08 Dose: 75 ml Meclizine HCl (Antivert) 12.5 mg PO ONETIME ONE Stop: 02/01/17 13:02 Last Admin: 05/09/17 16:01 Dose: Not Given Meclizine HCl (Antivert) 12.5 mg PO ONETIME ONE Stop: 02/01/17 16:31 Last Admin: 02/01/17 16:41 Dose: 12.5 mg Metoclopramide HCl (Reglan) 10 mg IVPUSH ONETIME ONE Stop: 02/01/17 13:18 Last Admin: 02/01/17 13:28 Dose: 10 mg Ondansetron HCl (Zofran) 4 mg IVPUSH ONETIME ONE Stop: 02/01/17 11:49 Last Admin: 02/01/17 11:53 Dose: 4 mg Pantoprazole Sodium (Protonix Iv) 40 mg IV ACBREAKFAST [facility] Last Admin: 02/02/17 06:43 Dose: 40 mg Potassium Chloride (Potassium Chloride) 40 meq PO ONETIME ONE Stop: 02/03/17 08:10 Last Admin: 02/03/17 08:42 Dose: 40 meq Promethazine HCl (Phenergan) 12.5 mg IM ONETIME ONE Stop: 02/01/17 16:31 Last Admin: 02/01/17 16:41 Dose: 12.5 mg - Problem List & Annotations (1) Fall at home SNOMED Code(s): 66576953 Code(s): W19.XXXA - UNSPECIFIED FALL, INITIAL ENCOUNTER; Y92.099 - UNSP PLACE IN OTH NON-INSTITUTIONAL RESIDENCE PLACE Status: Acute Priority: High Current Visit: Yes Qualifiers: Encounter type: initial encounter Qualified Code(s): W19.XXXA - Unspecified fall, initial encounter; Y92.099 - Unspecified place in other non- institutional residence as the place of occurrence of the external cause (2) Nausea & vomiting SNOMED Code(s): 97263109 Code(s): R11.2 - NAUSEA WITH VOMITING, UNSPECIFIED Status: Acute Priority : High Current Visit: Yes Qualifiers: Vomiting type: unspecified (3) Vertigo SNOMED Code(s): 892294221 Code(s): R42 - DIZZINESS AND GIDDINESS Status: Acute Priority: High Current Visit: Yes - My Orders Last 24 Hours: My Active Orders 02/03/17 09:30 Sodium Chloride 0.9% [Saline Flush] 40 ml FLUSH ONETIME PRN 05/13/17 13:00 Remove Patch 0 ea TRDERM Q72H - Plan Plan:: See recent documentation for frequent falls, THIS WAS NOT RELATED TO THE STOMACH FLU.
[2017-02-04] MEDS: Albuterol/Ipratropium 3.0-0.5 MG/3 ML Neb Soln NEB SCH ×3 (06:39→15:02)
[2017-02-04] MEDS: Ferrous Sulfate 325 MG Tab PO SCH (06:46)
[2017-02-04] MEDS ORDERED: Aspirin 325 MG Tab.EC PO SCH (09:00)
[2017-02-04] MEDS: Budesonide 0.5 MG/2 ML Neb Susp INH SCH (09:26)
[2017-02-04] MEDS: Lisinopril 5 MG Tab PO SCH (10:17)
[2017-02-04] MEDS: Potassium Chloride 10% 20 MEQ/15 ML Soln 30 ML UD Cup PO SCH (10:17)
[2017-02-04] MEDS: Famotidine 20 MG Tab PO SCH (10:17)
[2017-02-04] MEDS: Gabapentin 100 MG Cap PO SCH ×2 (10:18→15:13)
[2017-02-04] MEDS: Montelukast 10 MG Tab PO SCH (10:18)
[2017-02-04] MEDS: Oxybutynin 5 MG Tab PO SCH (10:18)
[2017-02-04] MEDS: predniSONE 5 MG Tab PO SCH (10:18)
--- NOTE | 2017-02-04 13:59 | PCM.DCSUM1 ---
<Catrina Del Cid M - Last Filed: 02/04/17 14:01> Discharge Summary - Hospital Course Free Text/Narrative:: 81-year-old female presents to ER via the ambulance service for evaluation and treatment of dizziness, nausea and vomiting. Patient reportedly felt dizzy and fell down onto her left side. She says that she did not hit her head nor lose consciousness; she fell from the dizziness. After the dizziness she then developed nausea and vomiting. She did not use her emergency lifeline button as she knew her daughters were coming to visit her shortly. Her daughters found her on the floor on her left hip. Patient did have a total hip replacement done about 3 weeks ago in [place] in [place], by Dr. Castellanos. She is not complaining of any pain. She denies any chest pain, shortness of breath or abdominal pain. She reports dizziness, nausea and vomiting. States the dizziness is worse with movement. Patient is a DO NOT RESUSCITATE, DO NOT INTUBATE. Hospitalist service is consulted for admission for vertigo; nausea/vomiting and fall at home. Patient was hospitalized here in early October with Influenza, CHF exacerbation. She was discharged home to [facility] at that time. She has had multiple falls since that time. She had a rehab stay and was again discharged back to [facility]. She again fell, suffering a fractured hip. She was transferred to [place] for CRISTI as noted above. She had a rehab stay in [place] and has been home to [facility] for only 5 days. Essentially the patient has been home, minimum of 2 weeks since October due to illness, falls and hip fracture with recovery. She has now had episode as above of dizziness causing fall. Evaluation with MRI of brain reveals rt cerebellar infarct, acute. 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 Left is unremarkable. MRA of neck is unremarkable. With this information patient has been working with PT/OT for balance. It has been recommended she have rehab stay for strenght, balance. Patient and family have decided to return "home" to [facility] with increased services at this time despite teams strong recommendation for Rehab stay. She will be placed on 325mg ASA daily (currently on BID dosing s/p TKA x 6 weeks then is to transition to QD once 6 wk course is completed), crestor and low dose lisinopril for better b/ p control. Face to face encounter with patient and family occurred today. As patient is homebound and s/p acute cerebellar CVA, she will require home health care with PT/OT and home safety evaluation for ongoing evaluation, strenghtening, balance and monitoring. She will follow up with her PCP, Dr. Rodriguez who will continue to oversee her home health care services. She is medically stable for discharge home today to [facility] with family to take her. She is to have follow up with PCP, Dr. Rodriguez within 5-7 days for close follow up. Dr. Anguiano has also recommended consult with Dr. Satish Espinoza at [facility] for further eval/recommendations s/p CVA with vertebral artery occlusion. - Discharge Data Discharge Date: 02/04/17 (admit date 02/02/17) Discharge Disposition: DC/Tfer to Other 70 Condition: Undetermined - Discharge Diagnosis/Problem(s) (1) Vertigo SNOMED Code(s): 004379266 ICD Code: R42 - DIZZINESS AND GIDDINESS Status: Acute Priority: High Current Visit: Yes (2) Nausea & vomiting SNOMED Code(s): 47195469 ICD Code: R11.2 - NAUSEA WITH VOMITING, UNSPECIFIED Status: Acute Priority: High Current Visit: Yes Qualifiers: Vomiting type: unspecified (3) Hypokalemia SNOMED Code(s): 92175492 ICD Code: E87.6 - HYPOKALEMIA Status: Acute Priority: High Current Visit: Yes (4) Fall at home SNOMED Code(s): 75694918 ICD Code: W19.XXXA - UNSPECIFIED FALL, INITIAL ENCOUNTER; Y92.099 - UNSP PLACE IN OTH NON-INSTITUTIONAL RESIDENCE PLACE Status: Acute Priority: High Current Visit: Yes Qualifiers: Encounter type: initial encounter Qualified Code(s): W19.XXXA - Unspecified fall, initial encounter; Y92.099 - Unspecified place in other non- institutional residence as the place of occurrence of the external cause (5) New cerebellar infarct SNOMED Code(s): 00051449 ICD Code: I63.9 - CEREBRAL INFARCTION, UNSPECIFIED Status: Acute Priority : High Current Visit: Yes (6) Occlusion of right vertebral artery SNOMED Code(s): 814505555 ICD Code: I65.01 - OCCLUSION AND STENOSIS OF RIGHT VERTEBRAL ARTERY Status : Acute Priority: High Current Visit: Yes - Patient Summary/Data Operative Procedure(s) Performed: None Complications: None Consults: Consultations 02/02/17 12:58 Consult to Case Management [CONS] Routine Consult to Car Packer [CONS] Routine Labs Pending at D/C: None Recommended Follow-up Testing/Procedures: Daily weight and blood pressure. Keep a record for your doctor and bring to all appointments for review. Home health care with PT, OT and home safety evaluation. Follow up with your PCP within 1-2 weeks of discharge Recommend evaluation with Dr. Espinoza, Neurology/Neurosurgery in [place] for post stroke, vertebral artery occlusion evaluation Use walker at all times for assistance with balance and fall prevention Planned Operative Procedure(s) after DC: None Hospital Course: As above - Patient Instructions Diet: Heart Healthy Diet Activity: As Tolerated (continue with hip precautions; use walker at all times for fall prevention/assist with balance as stroke affected balance center of brain) Driving: Do Not Drive Showering/Bathing: May Shower Notify Provider of: Fever, Increased Pain, Swelling and Redness, Drainage, Nausea and/or Vomiting (continued recurrent falls, dizziness/lightheadedness) - Discharge Plan Prescriptions/Med Rec: Ferrous Sulfate 325 mg PO WITHBREAKFAST #30 tablet Lisinopril [Prinivil] 5 mg PO DAILY #30 tablet Potassium Chloride 40 meq PO BID #60 cup Simvastatin [Zocor] 10 mg PO BEDTIME #30 tablet Home Medications: Home Meds Calcium Carbonate/Vitamin D3 [Calcium 500 + Vit D Caplet] 1 each PO BID [History] Montelukast [Singulair] 10 mg PO DAILY 09/23/16 [History] Omeprazole 20 mg PO DAILY 09/23/16 [History] Vit A/C/E AC/Znox/Cupric Oxide [Eye Vitamin-Minerals Tablet] 1 each PO DAILY [History] Potassium Chloride 20 meq PO BID #60 tab.er.prt 09/28/16 [Rx] Furosemide [Lasix] 60 mg PO DAILY 12/16/16 [History] Gabapentin [Neurontin] 100 mg PO TID 12/16/16 [History] Ipratropium/Albuterol Sulfate [Iprat-Albut 0.5-3(2.5) mg/3 ml] 3 ml IH QID 12/16 [History] Budesonide [Pulmicort] 0.5 mg IH BID 01/13/17 [History] Acetaminophen [Tylenol] 650 mg PO Q4H PRN 02/01/17 [History] Dextromethorphan/guaiFENesin [Robitussin DM] 10 ml PO Q4H PRN 02/01/17 [History] Docusate Sodium 100 mg PO BID 02/01/17 [History] Oxybutynin Chloride 5 mg PO DAILY 02/01/17 [History] Psyllium [Metamucil] 10 ml PO DAILY 02/01/17 [History] Sodium Chloride [Saline Nasal [place]] 2 spray INH Q2H PRN 02/01/17 [History] Triamcinolone Acetonide [Triamcinolone Acetonide 0.1% Crm] 1 ml TOP BID [History] Umeclidinium Brm/Vilanterol Tr [Anoro Ellipta 62.5-25 Mcg INH] 1 puff INH DAILY PRN 02/01/17 [History] traMADol [Ultram] 50 mg PO Q6H PRN 02/01/17 [History] predniSONE [Prednisone] 5 mg PO DAILY 02/02/17 [History] Aspirin [Ecotrin] 325 mg PO BID #0 02/04/17 [Rx] Ferrous Sulfate 325 mg PO WITHBREAKFAST #30 tablet 02/04/17 [Rx] Lisinopril [Prinivil] 5 mg PO DAILY #30 tablet 02/04/17 [Rx] Potassium Chloride 40 meq PO BID #60 cup 02/04/17 [Rx] Simvastatin [Zocor] 10 mg PO BEDTIME #30 tablet 02/04/17 [Rx] Patient Handouts: Nausea and Vomiting, Adult, [id number], Ischemic Stroke Treated Without Warfarin, [id number], Hypertension, [id number], Rehabilitation After a Stroke, Adult, Heart Failure, Utlp-[id number], Dizziness, [id number], Managing Your High Blood Pressure Forms: ED Department Discharge Referrals: Thomas Espinoza MD [Ordering Only Provider] - (Clinic will call and schedule appt. with patient) Jamey Rodriguez MD [Primary Care Provider] - - Discharge Summary/Plan Comment DC Time >30 min.: Yes (40 min) - General Info Date of Service: 02/04/17 Admission Dx/Problem (Free Text: Admission Diagnosis/Problem Admission Diagnosis/Problem Vertigo Maria Del Rosario is seen this morning; dizziness and nausea have resolved. She slept well last night. No pain currently other than chronic neck pain/arthritis pain. No f/c/s. She states she feels unsteady and "woozy" when she is up and ambulatory but this is improved. I had long discussion with patient and daughter, Garima, yesterday about test results; reviewing cerebellar infarct which looks to be acute, and vertebral artery occlusion. Need for further therapy and recommendations for Rehab stay to work on balance as CVA has hit balance center in her brain. At that time yesterday they wishes to talk this over and think about a decision. SW was to talk to them about other options for rehab. SW did visit with them about options. Patient and family have decided to forego rehab stay and elect home to [facility] with [facility] and have continued therapy there. Discussed that this may not be best option for recover as rehab will not be as intense as it could be in this acute phase post CVA. They voice understanding but wish to go "home". I review with her that she may continue to have recurrent falls and this could be unsafe for her. She again voices understanding. Functional Status: Reports: pain controlled, tolerating diet, ambulating, urinating. Denies: new symptoms - Review of Systems General: Reports: No Symptoms HEENT: Reports: no symptoms. Denies: headaches Pulmonary: Reports: no symptoms, shortness of breath (chronic- at baseline- 1-2L /NC). Denies: pleuritic chest pain, cough, wheezing Cardiovascular: Reports: No Symptoms, Dyspnea on Exertion (chronic- at baseline) . Denies: Chest Pain, Palpitations Gastrointestinal: Reports: No symptoms Genitourinary: Reports: no symptoms Musculoskeletal: Reports: neck pain (chronic- baseline) Neurological: Reports: No Symptoms. Denies: Confusion, Dizziness (none noted today), Headache, Numbness, Paresthesia, Tingling, Trouble Speaking Psychiatric: Reports: no symptoms - Patient Data Vitals - Most Recent: Last Vital Signs Temp 98.2 F 02/04/17 13:48 Pulse 77 02/04/17 13:48 Resp 20 02/04/17 13:48 BP 144/76 H 02/04/17 13:48 Pulse Ox 98 02/04/17 13:48 Weight - Most Recent: 66.315 kg I&O - Last 24 hours: Intake & Output 02/03/17 02/04/17 02/04/17 22:59 06:59 14:59 Intake Total 1115 1100 210 Output Total 700 400 Balance 415 700 210 Med Orders - Current: Current Medications Acetaminophen (Tylenol) 650 mg PO Q4H PRN PRN Reason: Pain Last Admin: 02/01/17 21:19 Dose: 650 mg Albuterol/Ipratropium (Duoneb 3.0-0.5 Mg/3 Ml) 3 ml NEB QIDRT [facility] Last Admin: 02/04/17 09:26 Dose: 3 ml Aspirin (Ecotrin) 325 mg PO DAILY [facility] Last Admin: 02/04/17 10:17 Dose: 325 mg Budesonide (Pulmicort) 0.5 mg INH BID [facility] Last Admin: 02/04/17 09:26 Dose: 0.5 mg Famotidine (Pepcid) 20 mg PO BID [facility] Last Admin: 02/04/17 10:17 Dose: 20 mg Ferrous Sulfate (Ferrous Sulfate) 325 mg PO WITHBREAKFAST [facility] Last Admin: 02/04/17 06:46 Dose: 325 mg Gabapentin (Neurontin) 100 mg PO TID [facility] Last Admin: 02/04/17 10:18 Dose: 100 mg Guaifenesin/Phenylephrine HCl (Robitussin Dm) 10 ml PO Q4H PRN PRN Reason: Cough Lisinopril (Prinivil) 5 mg PO DAILY [facility] Last Admin: 02/04/17 10:17 Dose: 5 mg Miscellaneous Information (Remove Patch) 0 ea TRDERM Q72H [facility] Montelukast Sodium (Singulair) 10 mg PO DAILY [facility] Last Admin: 02/04/17 10:18 Dose: 10 mg Ondansetron HCl (Zofran) 4 mg IVPUSH Q8H PRN PRN Reason: Nausea/Vomiting Oxybutynin Chloride (Oxybutynin) 5 mg PO DAILY [facility] Last Admin: 02/04/17 10:18 Dose: 5 mg Potassium Chloride (Potassium Chloride) 40 meq PO BID [facility] Last Admin: 02/04/17 10:17 Dose: 40 meq Prednisone (Prednisone) 5 mg PO DAILY [facility] Last Admin: 02/04/17 10:18 Dose: 5 mg Scopolamine (Transderm-Scop) 1.5 mg TRDERM Q72H PRN PRN Reason: Dizziness Simvastatin (Zocor) 10 mg PO BEDTIME [facility] Sodium Chloride (Saline Flush) 10 ml FLUSH ASDIRECTED PRN PRN Reason: Keep Vein Open Last Admin: 02/01/17 11:54 Dose: 10 ml Sodium Chloride (Saline Flush) 10 ml FLUSH ONETIME PRN PRN Reason: IV FLUSH Last Admin: 02/01/17 14:07 Dose: 10 ml Temazepam (Restoril) 7.5 mg PO BEDTIME PRN PRN Reason: Insomnia Discontinued Medications Albuterol/Ipratropium (Duoneb 3.0-0.5 Mg/3 Ml) 3 ml NEB QID [facility] Aspirin (Aspirin) 81 mg PO DAILY [facility] Last Admin: 02/03/17 12:58 Dose: 81 mg Gadobenate Dimeglumine (Multihance) 20 ml IVPUSH ONETIME ONE Stop: 02/03/17 09:31 Last Admin: 02/03/17 10:04 Dose: 20 ml Gadobenate Dimeglumine (Multihance) 20 ml IVPUSH ONETIME ONE Stop: 02/03/17 10:04 Last Admin: 02/03/17 12:58 Dose: Not Given Sodium Chloride (Normal Saline) 1,000 mls @ 100 mls/hr IV ONETIME ONE Stop: 02/01/17 23:41 Last Admin: 02/01/17 13:46 Dose: 100 mls/hr Sodium Chloride (Normal Saline) 100 mls @ 65 mls/hr IV ASDIRECTED [facility] Last Admin: 02/01/17 14:06 Dose: 65 mls/hr Sodium Chloride (Normal Saline) 1,000 mls @ 75 mls/hr IV ASDIRECTED [facility] Stop: 02/04/17 02:34 Last Admin: 02/03/17 08:06 Dose: 75 mls/hr Iopamidol (Isovue-370 (76%)) 100 ml IVPUSH ONETIME ONE Stop: 02/01/17 13:45 Last Admin: 02/01/17 14:08 Dose: 75 ml Meclizine HCl (Antivert) 12.5 mg PO ONETIME ONE Stop: 02/01/17 13:02 Last Admin: 02/01/17 16:01 Dose: Not Given Meclizine HCl (Antivert) 12.5 mg PO ONETIME ONE Stop: 02/01/17 16:31 Last Admin: 02/01/17 16:41 Dose: 12.5 mg Metoclopramide HCl (Reglan) 10 mg IVPUSH ONETIME ONE Stop: 02/01/17 13:18 Last Admin: 02/01/17 13:28 Dose: 10 mg Ondansetron HCl (Zofran) 4 mg IVPUSH ONETIME ONE Stop: 02/01/17 11:49 Last Admin: 02/01/17 11:53 Dose: 4 mg Pantoprazole Sodium (Protonix Iv) 40 mg IV ACBREAKFAST TONY Last Admin: 02/02/17 06:43 Dose: 40 mg Potassium Chloride (Potassium Chloride) 40 meq PO ONETIME ONE Stop: 02/03/17 08:10 Last Admin: 02/03/17 08:42 Dose: 40 meq Promethazine HCl (Phenergan) 12.5 mg IM ONETIME ONE Stop: 02/01/17 16:31 Last Admin: 02/01/17 16:41 Dose: 12.5 mg Sodium Chloride (Saline Flush) 40 ml FLUSH ONETIME PRN PRN Reason: Keep Vein Open Stop: 02/03/17 18:00 Last Admin: 02/03/17 10:04 Dose: 40 ml - Exam Quality Assessment: Reports: supplemental oxygen, DVT prophylaxis General: Reports: alert, oriented, cooperative, no acute distress HEENT: Reports: Pupils equal, Pupils reactive, EOMI, Mucous membr. moist/pink Neck: Reports: supple Lungs: Reports: Clear to auscultation, Normal respiratory effort, Wheezing ( scattered throughout on expiration) Cardiovascular: Reports: Regular Rate, Regular Rhythm Abdomen: Reports: bowel sounds present, soft, no tenderness, no distension (Female) Exam: Deferred Rectal (Female) Exam: Deferred Back Exam: Reports: Normal Inspection Extremities: Reports: edema (trace to 1+ at LE; teds in place bilat) Skin: Reports: warm, dry, intact Neurological: Reports: no new focal deficit, normal speech, normal tone, cranial nerves intact Psy/Mental Status: Reports: alert, normal affect, normal mood *Q Meaningful Use (DIS) - VTE *Q VTE Criteria *Q: - Stroke *Q Stroke Criteria *Q: - AMI *Q AMI Criteria *Q: <Cuca Anguiano - Last Filed: 02/04/17 16:20> Discharge Summary - Hospital Course Free Text/Narrative:: COMPREHENSIVE SUMMARY ABOVE, THE PATIENT WOULD BENEFIT FROM A NEUROSURGEON/ INTERVENTIONAL NEUROLOGIST, DR ESPINOZA IS HIGHLY RECOMMENDED FOR A POSSIBLE INTERVENTION ON THE OCCLUDED VERTEBRAL ARTERY. THE PATIENT HAS A HISTORY OF FREQUENT FALLS. THE ABOVE INFORMATION AND RECOMMENDATIONS WERE DISCUSSED ON MULTIPLE OCCASIONS IN DETAIL WITH THE PATIENT AND HER FAMILY. SHE/THEY HAVE ELECTED TO BE DISCHARGED WITH NO ADDITIONAL TREATMENT INCLUDING REHAB RE: CEREBELLAR CVA. - Discharge Diagnosis/Problem(s) (1) Fall at home SNOMED Code(s): 77083540 ICD Code: W19.XXXA - UNSPECIFIED FALL, INITIAL ENCOUNTER; Y92.099 - UNSP PLACE IN OTH NON-INSTITUTIONAL RESIDENCE PLACE Status: Acute Priority: High Current Visit: Yes Qualifiers: Encounter type: initial encounter Qualified Code(s): W19.XXXA - Unspecified fall, initial encounter; Y92.099 - Unspecified place in other non- institutional residence as the place of occurrence of the external cause (2) Nausea & vomiting SNOMED Code(s): 16159217 ICD Code: R11.2 - NAUSEA WITH VOMITING, UNSPECIFIED Status: Acute Priority: High Current Visit: Yes Qualifiers: Vomiting type: unspecified (3) Vertigo SNOMED Code(s): 328675391 ICD Code: R42 - DIZZINESS AND GIDDINESS Status: Acute Priority: High Current Visit: Yes - Patient Summary/Data Consults: Consultations 02/02/17 12:58 Consult to Case Management [CONS] Routine Consult to Car Packer [CONS] Routine - Patient Data Vitals - Most Recent: Last Vital Signs Temp 36.8 C 02/04/17 13:48 Pulse 77 02/04/17 13:48 Resp 20 02/04/17 13:48 BP 144/76 H 02/04/17 13:48 Pulse Ox 97 02/04/17 15:02 I&O - Last 24 hours: Intake & Output 02/04/17 02/04/17 02/04/17 06:59 14:59 22:59 Intake Total 1100 420 Output Total 400 Balance 700 420 Lab Results - Last 24 hrs: Laboratory Results - last 24 hr 02/04/17 02/04/17 02/04/17 Range/Units 15:15 15:15 15:15 WBC 8.26 (3.98-10.04) K/mm3 RBC 3.66 L (3.98-5.22) M/mm3 Hgb 9.9 L (11.2-15.7) gm/L Hct 32.6 L (34.1-44.9) % MCV 89.1 (79.4-94.8) fl MCH 27.0 (25.6-32.2) pg MCHC 30.4 L (32.2-35.5) g/dl RDW Std Deviation 60.4 H (36.4-46.3) fL Plt Count 301 (182-369) K/mm3 MPV 10.4 (9.4-12.3) fl Neut % (Auto) 74.2 H (34.0-71.1) % Lymph % (Auto) 10.3 L (19.3-51.7) % [place] % (Auto) 9.8 (4.7-12.5) % Eos % (Auto) 4.7 (0.7-5.8) Baso % (Auto) 0.5 (0.1-1.2) % Neut # (Auto) 6.13 (1.56-6.13) K/mm3 Lymph # (Auto) 0.85 L (1.18-3.74) K/mm3 [place] # (Auto) 0.81 H (0.24-0.36) K/mm3 Eos # (Auto) 0.39 H (0.04-0.36) K/mm3 Baso # (Auto) 0.04 (0.01-0.08) K/mm3 Sodium 142 (136-145) mEq/L Potassium 4.7 (3.5-5.1) mEq/L Chloride 105 (98-107) mEq/L Carbon Dioxide 30 (21-32) mEq/L Anion Gap 11.7 (5-15) BUN 14 (7-18) mg/dL Creatinine 0.9 (0.55-1.02) mg/dL Est Cr Clr Drug Dosing 39.16 mL/min Estimated GFR (MDRD) 60 (>60) mL/min BUN/Creatinine Ratio 15.6 (14-18) Glucose 149 H (83-115) mg/dL Calcium 9.0 (8.5-10.1) mg/dL C-Reactive Protein 2.6 H* (<1.0) mg/dL Triglycerides 52 (<150) mg/dL Cholesterol 201 H (<200) mg/dL LDL Cholesterol Direct 67 (<100) mg/dL HDL Cholesterol 123.0 H (40-59) mg/dL Med Orders - Current: Current Medications Acetaminophen (Tylenol) 650 mg PO Q4H PRN PRN Reason: Pain Last Admin: 02/01/17 21:19 Dose: 650 mg Albuterol/Ipratropium (Duoneb 3.0-0.5 Mg/3 Ml) 3 ml NEB QIDRT [facility] Last Admin: 02/04/17 15:02 Dose: 3 ml Aspirin (Ecotrin) 325 mg PO DAILY [facility] Last Admin: 02/04/17 10:17 Dose: 325 mg Budesonide (Pulmicort) 0.5 mg INH BID [facility] Last Admin: 02/04/17 09:26 Dose: 0.5 mg Famotidine (Pepcid) 20 mg PO BID [facility] Last Admin: 02/04/17 10:17 Dose: 20 mg Ferrous Sulfate (Ferrous Sulfate) 325 mg PO WITHBREAKFAST [facility] Last Admin: 02/04/17 06:46 Dose: 325 mg Gabapentin (Neurontin) 100 mg PO TID [facility] Last Admin: 02/04/17 15:13 Dose: 100 mg Guaifenesin/Phenylephrine HCl (Robitussin Dm) 10 ml PO Q4H PRN PRN Reason: Cough Lisinopril (Prinivil) 5 mg PO DAILY [facility] Last Admin: 02/04/17 10:17 Dose: 5 mg Miscellaneous Information (Remove Patch) 0 ea TRDERM Q72H [facility] Montelukast Sodium (Singulair) 10 mg PO DAILY [facility] Last Admin: 02/04/17 10:18 Dose: 10 mg Ondansetron HCl (Zofran) 4 mg IVPUSH Q8H PRN PRN Reason: Nausea/Vomiting Oxybutynin Chloride (Oxybutynin) 5 mg PO DAILY [facility] Last Admin: 02/04/17 10:18 Dose: 5 mg Potassium Chloride (Potassium Chloride) 40 meq PO BID [facility] Last Admin: 02/04/17 10:17 Dose: 40 meq Prednisone (Prednisone) 5 mg PO DAILY [facility] Last Admin: 02/04/17 10:18 Dose: 5 mg Scopolamine (Transderm-Scop) 1.5 mg TRDERM Q72H PRN PRN Reason: Dizziness Simvastatin (Zocor) 10 mg PO BEDTIME [facility]ONY Sodium Chloride (Saline Flush) 10 ml FLUSH ASDIRECTED PRN PRN Reason: Keep Vein Open Last Admin: 02/01/17 11:54 Dose: 10 ml Sodium Chloride (Saline Flush) 10 ml FLUSH ONETIME PRN PRN Reason: IV FLUSH Last Admin: 02/01/17 14:07 Dose: 10 ml Temazepam (Restoril) 7.5 mg PO BEDTIME PRN PRN Reason: Insomnia Discontinued Medications Albuterol/Ipratropium (Duoneb 3.0-0.5 Mg/3 Ml) 3 ml NEB QID [facility] Aspirin (Aspirin) 81 mg PO DAILY [facility] Last Admin: 02/03/17 12:58 Dose: 81 mg Furosemide (Lasix) 10 mg IVPUSH NOW ONE Stop: 02/04/17 14:46 Last Admin: 02/04/17 15:13 Dose: 10 mg Gadobenate Dimeglumine (Multihance) 20 ml IVPUSH ONETIME ONE Stop: 02/03/17 09:31 Last Admin: 02/03/17 10:04 Dose: 20 ml Gadobenate Dimeglumine (Multihance) 20 ml IVPUSH ONETIME ONE Stop: 02/03/17 10:04 Last Admin: 02/03/17 12:58 Dose: Not Given Sodium Chloride (Normal Saline) 1,000 mls @ 100 mls/hr IV ONETIME ONE Stop: 02/01/17 23:41 Last Admin: 02/01/17 13:46 Dose: 100 mls/hr Sodium Chloride (Normal Saline) 100 mls @ 65 mls/hr IV ASDIRECTED [facility] Last Admin: 02/01/17 14:06 Dose: 65 mls/hr Sodium Chloride (Normal Saline) 1,000 mls @ 75 mls/hr IV ASDIRECTED [facility] Stop: 02/04/17 02:34 Last Admin: 02/03/17 08:06 Dose: 75 mls/hr Iopamidol (Isovue-370 (76%)) 100 ml IVPUSH ONETIME ONE Stop: 02/01/17 13:45 Last Admin: 02/01/17 14:08 Dose: 75 ml Meclizine HCl (Antivert) 12.5 mg PO ONETIME ONE Stop: 02/01/17 13:02 Last Admin: 02/01/17 16:01 Dose: Not Given Meclizine HCl (Antivert) 12.5 mg PO ONETIME ONE Stop: 02/01/17 16:31 Last Admin: 02/01/17 16:41 Dose: 12.5 mg Metoclopramide HCl (Reglan) 10 mg IVPUSH ONETIME ONE Stop: 02/01/17 13:18 Last Admin: 02/01/17 13:28 Dose: 10 mg Ondansetron HCl (Zofran) 4 mg IVPUSH ONETIME ONE Stop: 02/01/17 11:49 Last Admin: 02/01/17 11:53 Dose: 4 mg Pantoprazole Sodium (Protonix Iv) 40 mg IV ACBREAKFAST TONY Last Admin: 02/02/17 06:43 Dose: 40 mg Potassium Chloride (Potassium Chloride) 40 meq PO ONETIME ONE Stop: 02/03/17 08:10 Last Admin: 02/03/17 08:42 Dose: 40 meq Potassium Chloride (Potassium Chloride) 40 meq PO ONETIME ONE Stop: 02/04/17 15:01 Last Admin: 02/04/17 15:13 Dose: 40 meq Promethazine HCl (Phenergan) 12.5 mg IM ONETIME ONE Stop: 02/01/17 16:31 Last Admin: 02/01/17 16:41 Dose: 12.5 mg Sodium Chloride (Saline Flush) 40 ml FLUSH ONETIME PRN PRN Reason: Keep Vein Open Stop: 02/03/17 18:00 Last Admin: 02/03/17 10:04 Dose: 40 ml *Q Meaningful Use (DIS) - VTE *Q VTE Criteria *Q: - Stroke *Q Stroke Criteria *Q: - AMI *Q AMI Criteria *Q:
[2017-02-04] MEDS ORDERED: Furosemide 20 MG/2 ML VIAL IVPUSH ONE (14:45)
[2017-02-04] MEDS ORDERED: Potassium Chloride 10% 20 MEQ/15 ML Soln 30 ML UD Cup PO ONE (15:00)
[2017-02-04 19:54] VITALS: BP 133/79
[2017-02-04] MEDS ORDERED: Simvastatin 10 MG Tab PO SCH (21:00)
== END 2017-02-04 18:45 | disposition other institution (70) | DRG 149 ==
LOC: SUPCPDRO 11:35 → JD.ED 11:35 → JD.MS 15:46 → OBSVTOIN 02-02 11:57
PROVIDERS: ADMIT Internal Medicine Cardiovascular Disease; ATTEND Internal Medicine Cardiovascular Disease
DX: R42 Dizziness and giddiness (principal); I63.9 Cerebral infarction, unspecified; R79.1 Abnormal coagulation profile; R11.2 Nausea with vomiting, unspecified; Y92.099 Unspecified place in other non-institutional residence as the place of occurrence of the external cause; E87.6 Hypokalemia; W19.XXXA Unspecified fall, initial encounter; R26.81 Unsteadiness on feet; I65.01 Occlusion and stenosis of right vertebral artery; I11.0 Hypertensive heart disease with heart failure; I50.9 Heart failure, unspecified; K21.9 Gastro-esophageal reflux disease without esophagitis; K44.9 Diaphragmatic hernia without obstruction or gangrene; M19.90 Unspecified osteoarthritis, unspecified site; M81.0 Age-related osteoporosis without current pathological fracture; I71.9 Aortic aneurysm of unspecified site, without rupture; H35.30 Unspecified macular degeneration; Z96.641 Presence of right artificial hip joint; Z96.653 Presence of artificial knee joint, bilateral; Z66 Do not resuscitate; Z79.82 Long term (current) use of aspirin; Z99.81 Dependence on supplemental oxygen; D64.9 Anemia, unspecified; Z79.899 Other long term (current) drug therapy; J44.9 Chronic obstructive pulmonary disease, unspecified; Z87.01 Personal history of pneumonia (recurrent)
CPT/HCPCS: 36415 ×2; 70450; 71010; 71275; 73502; 80048; 80053; 82550; 83540; 83735; 83880; 84466; 84484; 85025 ×2; 85379; 86140 ×2; 86738; 87486; 87581; 87633; 87641; 87798; 93005 ×2; 94640 ×2; 94664; 94760; 96361; 96372; 96374; 96375 ×2; 99285; A9270 ×6; C9113; G0378; J2405; J2550; J2765; J7030; J7040; J7050 ×2; Q9967; 70544; 70544-26; 70548; 70548-26; 70553; 70553-26; 80061; 81001; 87899; 94761; 97110-GP; 97116-GP; 97162-GP; 97165-GO; 97530-GP; A9577

== ENCOUNTER 2020-10-05 23:24 | Inpatient (IN) | payer MEDICARE, BC ==
--- NOTE | 2020-10-06 00:01 | EDM.PDOC ---
ED HPI GENERAL MEDICAL PROBLEM - General Chief Complaint: Respiratory Problem Stated Complaint: [place] AMB Time Seen by Provider: 10/05/20 23:33 Source of Information: Reports: Patient, Family (Son) History Limitations: Reports: No Limitations - History of Present Illness INITIAL COMMENTS - FREE TEXT/NARRATIVE: Ms. Novak is a very pleasant 85-year-old woman who is now brought to the ED by EMS from [facility] assisted living in [place] due to hypoxemia. The patient ordinarily wears 2 L of oxygen per nasal cannula. We do not know what her her oxygen saturation was at [facility], but we are told that it was 92% on 3 L of oxygen per nasal cannula. She denies having dyspnea. [facility] also reports a cough and a "low-grade temp" however, the patient states that her cough is chronic and unchanged, and she denies having a fever or chills. She denies having chest pain or discomfort. We are notified that 2 staff members at [facility] have been diagnosed with COVID-19. The patient states that she received her first COVID vaccine this past 10/03/2020. Here in the ED, the patient is found to be hemodynamically stable, afebrile, saturating 84% on 2 L of oxygen per nasal cannula, up to 90% on 3.5 L of oxygen per nasal cannula. Prior to today, the patient denies having a recent fever, chills, sore throat, ear pain, nasal or sinus congestion, cough, dyspnea, chest pain, palpitations, nausea, vomiting, constipation, diarrhea, abdominal pain, urinary symptoms, recent weight gain or weight loss, recent bloody bowel movements or black bowel movements, recent joint aches, headaches, or rashes. Patient's PCP is ALISHA Mg. She already received an influenza vaccine this season. - Related Data Allergies Allergy/AdvReac Type Severity Reaction Status Date / Time No Known Allergies Allergy Verified 12/16/16 14:43 Home Meds: Home Meds Calcium Carbonate/Vitamin D3 [Calcium 500-Vit D3 125 Caplet] 1 each PO BID 09/23/16 [History] Montelukast [Singulair] 10 mg PO DAILY 09/23/16 [History] Omeprazole 20 mg PO DAILY 09/23/16 [History] Vit A/C/E AC/Znox/Cupric Oxide [Eye Vitamin-Minerals Tablet] 1 each PO DAILY 09/23/16 [History] Potassium Chloride 20 meq PO BID #60 tab.er.prt 09/28/16 [Rx] Furosemide [Lasix] 60 mg PO DAILY 12/16/16 [History] Budesonide [Pulmicort] 0.5 mg IH BID 01/13/17 [History] Acetaminophen [Tylenol] 650 mg PO Q4H PRN 02/01/17 [History] Dextromethorphan/guaiFENesin [Robitussin DM] 10 ml PO Q4H PRN 02/01/17 [History] Docusate Sodium 100 mg PO BID PRN 02/01/17 [History] Oxybutynin Chloride 5 mg PO DAILY 02/01/17 [History] Psyllium [Metamucil] 2 tab PO BID 02/01/17 [History] Sodium Chloride [Saline Nasal [place]] 2 spray INH Q2H PRN 02/01/17 [History] traMADol [Ultram] 50 mg PO Q6H PRN 02/01/17 [History] Albuterol [Proventil Neb Soln] 1 dose IH QID PRN 10/05/20 [History] Aspirin [Adult Low Dose Aspirin EC] 81 mg PO DAILY 10/05/20 [History] Furosemide [Lasix] 20 mg PO DAILY PRN 10/05/20 [History] Levothyroxine 75 mcg PO SUSA 10/05/20 [History] Levothyroxine [Synthroid] 50 mcg PO MOTUWETHFR 10/05/20 [History] Nystatin [Nystatin Crm] 1 applic TOP DAILY PRN 10/05/20 [History] Polyvinyl Alcohol/Povidone/Pf [Refresh Classic Eye Drops] 1 drop EYEBOTH ASDIRECTED PRN 10/05/20 [History] Simvastatin [Zocor] 5 mg PO BEDTIME 10/05/20 [History] Past Medical History HEENT History: Reports: Macular Degeneration Cardiovascular History: Reports: Heart Failure, Hypertension Gastrointestinal History: Reports: GERD Musculoskeletal History: Reports: Arthritis, Osteoporosis, Other (See Below) (Scoliosis) Oncologic (Cancer) History: Reports: Basal Cell Carcinoma (nose), Thyroid (s/p excision) - Infectious Disease History Infectious Disease History: Reports: Chicken Pox, Measles, Mumps - Past Surgical History HEENT Surgical History: Reports: Adenoidectomy, Cataract Surgery (bilateral), Tonsillectomy Female Surgical History: Reports: Hysterectomy Musculoskeletal Surgical History: Reports: Hip Replacement (right), Knee Replacement (bilateral) Oncologic Surgical History: Reports: Other (See Below) (Thyroidectomy) Social & Family History - Tobacco Use Tobacco Use Status *Q: Never Tobacco User Second Hand Smoke Exposure: No - Caffeine Use Caffeine Use: Reports: None Other Caffeine Use: 2 cups of tea a day - Alcohol Use Alcohol Use History: No - Recreational Drug Use Recreational Drug Use: No - Living Situation & Occupation Living situation: Reports: , Assisted Living ([facility]) Occupation: Retired ED ROS GENERAL - Review of Systems Review Of Systems: Comprehensive ROS is negative, except as noted in HPI. ED EXAM, GENERAL - Physical Exam Exam: See Below Exam Limited By: No Limitations General Appearance: Alert, WD/WN, No Apparent Distress Eye Exam: Bilateral Eye: EOMI, Normal Inspection Ears: Normal External Exam, Hearing Loss Nose: Normal Inspection Throat/Mouth: Normal Inspection, Normal Lips, Normal Voice, No Airway Compromise Head: Atraumatic, Normocephalic Neck: Normal Inspection, Full Range of Motion Respiratory/Chest: No Respiratory Distress, No Accessory Muscle Use, Decreased Breath Sounds, Rhonchi (mild, bilateral). No: Crackles, Wheezing, Stridor, Prolonged Expiration Cardiovascular: Normal Peripheral Pulses, Regular Rate, Rhythm, No Gallop, No JVD, No Rub, Systolic Murmur (3/6 heard best at RUSB) Peripheral Pulses: 3+: Radial (L), Radial (R) GI/Abdominal: Normal Bowel Sounds, Soft, Non-Tender, No Organomegaly, No Distention, No Abnormal Bruit, No Mass Back Exam: Normal Inspection, Full Range of Motion, NT Extremities: Normal Inspection, Normal Range of Motion, Normal Capillary Refill Neurological: Alert, Oriented, Normal Cognition, No Motor/Sensory Deficits Psychiatric: Normal Affect Skin Exam: Warm, Dry, Intact, Normal Color, No Rash #1 Interpretation EKG Date: 10/06/20 Time: 00:07 Rhythm: NSR Rate (Beats/Min): 79 [place]: Other (Extreme axis deviation) P-Wave: Enlarged (LAE) QRS: RBBB (+ LPFB) ST-T: Normal QT: Normal Comparison: No Change (02/01/2017) Course - Vital Signs Last Recorded V/S: Last Vital Signs Temp 37.1 C 10/05/20 23:26 Pulse 80 10/05/20 23:26 Resp 18 10/05/20 23:26 BP 129/79 10/05/20 23:26 Pulse Ox 84 L 10/05/20 23:26 - Orders/Labs/Meds Orders: Active Orders 24 hr Category Date Time Status EKG Documentation Completion [RC] STAT Care 10/05/20 23:50 Active Ang Chest [CT] Stat Exams 10/06/20 01:02 Taken Chest 1V Frontal [CR] Stat Exams 10/05/20 23:50 Taken CULTURE BLOOD [BC] Stat Lab 10/05/20 23:50 Received CULTURE BLOOD [BC] Stat Lab 10/05/20 23:50 Received HEPATIC FUNCTION PANEL,HFP [CHEM] DAILY Lab 10/07/20 02:30 Ordered HEPATIC FUNCTION PANEL,HFP [CHEM] DAILY Lab 10/08/20 02:30 Ordered HEPATIC FUNCTION PANEL,HFP [CHEM] DAILY Lab 10/09/20 02:30 Ordered HEPATIC FUNCTION PANEL,HFP [CHEM] DAILY Lab 10/10/20 02:30 Ordered Sodium Chloride 0.9% [Normal Saline] 1,000 ml Med 10/06/20 01:15 Active IV ASDIRECTED Sodium Chloride 0.9% [Normal Saline] 100 ml Med 10/06/20 02:00 Active IV ASDIRECTED Blood Culture x2 Reflex Set [OM.PC] Stat Oth 10/05/20 23:50 Ordered Medication Orders Sodium Chloride (Normal Saline) 1,000 mls @ 100 mls/hr IV ASDIRECTED TONY Sodium Chloride (Normal Saline) 100 mls @ 60 mls/hr IV ASDIRECTED TONY Last Admin: 10/06/20 02:21 Dose: 60 mls/hr Documented by: RYAN Labs: Laboratory Tests 10/05/20 10/05/20 10/05/20 Range/Units 23:45 23:45 23:45 WBC 9.43 (3.98-10.04) K/mm3 RBC 3.78 L (3.98-5.22) M/mm3 Hgb 10.7 L (11.2-15.7) gm/dl Hct 35.5 (34.1-44.9) % MCV 93.9 (79.4-94.8) fl MCH 28.3 (25.6-32.2) pg MCHC 30.1 L (32.2-35.5) g/dl RDW Std Deviation 50.1 H (36.4-46.3) fL Plt Count 141 L (182-369) K/mm3 MPV 11.8 (9.4-12.3) fl Neutrophils % (Manual) 91 H (40-60) % Band Neutrophils % 2 (0-10) % Lymphocytes % (Manual) 2 L (20-40) % Atypical Lymphs % 0 % Monocytes % (Manual) 5 (2-10) % Eosinophils % (Manual) 0 L (0.7-5.8) % Basophils % (Manual) 0 L (0.1-1.2) Platelet Estimate Adequate Polychromasia 1+ slight Anisocytosis 1+ slight Stomatocytes 1+ slight RBC Morph Comment Not Reportable PT 10.8 (9.7-12.0) SECONDS INR 1.01 APTT 28.0 (21.7-31.4) SECONDS D-Dimer, Quantitative 0.73 H (0.19-0.50) mg/L Puncture Site ABG pH (7.35-7.45) ABG pCO2 (35.0-45.0) mmHg ABG pO2 (80.0-100.0) mmHg ABG HCO3 (22.0-26.0) meq/L ABG O2 Saturation (96.0-97.0) % ABG Base Excess (-2-2.0) A-a Gradient mmHg O2 Delivery Device Oxygen Flow Rate FiO2 (21.00-100.00) % Sodium 140 (136-145) mEq/L Potassium 3.8 (3.5-5.1) mEq/L Chloride 101 (98-107) mEq/L Carbon Dioxide 31 (21-32) mEq/L Anion Gap 11.8 (5-15) BUN 22 H (7-18) mg/dL Creatinine 1.1 H (0.55-1.02) mg/dL Est Cr Clr Drug Dosing 25.88 mL/min Estimated GFR (MDRD) 47 (>60) mL/min BUN/Creatinine Ratio 20.0 H (14-18) Glucose 142 H (83-115) mg/dL Lactic Acid (0.4-2.0) mmol/L Calcium 9.3 (8.5-10.1) mg/dL Magnesium 1.7 L (1.8-2.4) mg/dl Total Bilirubin 1.0 (0.2-1.0) mg/dL AST 25 (15-37) U/L ALT 15 (14-59) U/L Alkaline Phosphatase 65 (46-116) U/L Troponin I < 0.017 (0.00-0.056) ng/mL NT-Pro-B Natriuret Pep (0-450) pg/mL Total Protein 7.3 (6.4-8.2) g/dl Albumin 2.9 L (3.4-5.0) g/dl Globulin 4.4 gm/dL Albumin/Globulin Ratio 0.7 L (1-2) Influenza Type A RNA (NEGATIVE) Influenza Type B RNA (NEGATIVE) SARS-CoV-2 RNA (ELOISA) (NEGATIVE) 10/05/20 10/06/20 10/06/20 Range/Units 23:45 00:10 00:15 WBC (3.98-10.04) K/mm3 RBC (3.98-5.22) M/mm3 Hgb (11.2-15.7) gm/dl Hct (34.1-44.9) % MCV (79.4-94.8) fl MCH (25.6-32.2) pg MCHC (32.2-35.5) g/dl RDW Std Deviation (36.4-46.3) fL Plt Count (182-369) K/mm3 MPV (9.4-12.3) fl Neutrophils % (Manual) (40-60) % Band Neutrophils % (0-10) % Lymphocytes % (Manual) (20-40) % Atypical Lymphs % % Monocytes % (Manual) (2-10) % Eosinophils % (Manual) (0.7-5.8) % Basophils % (Manual) (0.1-1.2) Platelet Estimate Polychromasia Anisocytosis Stomatocytes RBC Morph Comment PT (9.7-12.0) SECONDS INR APTT (21.7-31.4) SECONDS D-Dimer, Quantitative (0.19-0.50) mg/L Puncture Site Lt brachial ABG pH 7.46 H (7.35-7.45) ABG pCO2 43.4 (35.0-45.0) mmHg ABG pO2 60.0 L (80.0-100.0) mmHg ABG HCO3 30.7 H (22.0-26.0) meq/L ABG O2 Saturation 93.3 L (96.0-97.0) % ABG Base Excess 6.6 H (-2-2.0) A-a Gradient 128 mmHg O2 Delivery Device Nasal cannula Oxygen Flow Rate 3.5 FiO2 34.00 (21.00-100.00) % Sodium (136-145) mEq/L Potassium (3.5-5.1) mEq/L Chloride (98-107) mEq/L Carbon Dioxide (21-32) mEq/L Anion Gap (5-15) BUN (7-18) mg/dL Creatinine (0.55-1.02) mg/dL Est Cr Clr Drug Dosing mL/min Estimated GFR (MDRD) (>60) mL/min BUN/Creatinine Ratio (14-18) Glucose (83-115) mg/dL Lactic Acid 1.1 (0.4-2.0) mmol/L Calcium (8.5-10.1) mg/dL Magnesium (1.8-2.4) mg/dl Total Bilirubin (0.2-1.0) mg/dL AST (15-37) U/L ALT (14-59) U/L Alkaline Phosphatase (46-116) U/L Troponin I (0.00-0.056) ng/mL NT-Pro-B Natriuret Pep 1741 H (0-450) pg/mL Total Protein (6.4-8.2) g/dl Albumin (3.4-5.0) g/dl Globulin gm/dL Albumin/Globulin Ratio (1-2) Influenza Type A RNA (NEGATIVE) Influenza Type B RNA (NEGATIVE) SARS-CoV-2 RNA (ELOISA) (NEGATIVE) 10/06/20 Range/Units 00:20 WBC (3.98-10.04) K/mm3 RBC (3.98-5.22) M/mm3 Hgb (11.2-15.7) gm/dl Hct (34.1-44.9) % MCV (79.4-94.8) fl MCH (25.6-32.2) pg MCHC (32.2-35.5) g/dl RDW Std Deviation (36.4-46.3) fL Plt Count (182-369) K/mm3 MPV (9.4-12.3) fl Neutrophils % (Manual) (40-60) % Band Neutrophils % (0-10) % Lymphocytes % (Manual) (20-40) % Atypical Lymphs % % Monocytes % (Manual) (2-10) % Eosinophils % (Manual) (0.7-5.8) % Basophils % (Manual) (0.1-1.2) Platelet Estimate Polychromasia Anisocytosis Stomatocytes RBC Morph Comment PT (9.7-12.0) SECONDS INR APTT (21.7-31.4) SECONDS D-Dimer, Quantitative (0.19-0.50) mg/L Puncture Site ABG pH (7.35-7.45) ABG pCO2 (35.0-45.0) mmHg ABG pO2 (80.0-100.0) mmHg ABG HCO3 (22.0-26.0) meq/L ABG O2 Saturation (96.0-97.0) % ABG Base Excess (-2-2.0) A-a Gradient mmHg O2 Delivery Device Oxygen Flow Rate FiO2 (21.00-100.00) % Sodium (136-145) mEq/L Potassium (3.5-5.1) mEq/L Chloride (98-107) mEq/L Carbon Dioxide (21-32) mEq/L Anion Gap (5-15) BUN (7-18) mg/dL Creatinine (0.55-1.02) mg/dL Est Cr Clr Drug Dosing mL/min Estimated GFR (MDRD) (>60) mL/min BUN/Creatinine Ratio (14-18) Glucose (83-115) mg/dL Lactic Acid (0.4-2.0) mmol/L Calcium (8.5-10.1) mg/dL Magnesium (1.8-2.4) mg/dl Total Bilirubin (0.2-1.0) mg/dL AST (15-37) U/L ALT (14-59) U/L Alkaline Phosphatase (46-116) U/L Troponin I (0.00-0.056) ng/mL NT-Pro-B Natriuret Pep (0-450) pg/mL Total Protein (6.4-8.2) g/dl Albumin (3.4-5.0) g/dl Globulin gm/dL Albumin/Globulin Ratio (1-2) Influenza Type A RNA Negative (NEGATIVE) Influenza Type B RNA Negative (NEGATIVE) SARS-CoV-2 RNA (ELOISA) Positive H (NEGATIVE) Meds: Medications Generic Name Dose Route Start Last Admin Trade Name Freq PRN Reason Stop Dose Admin Sodium Chloride 1,000 mls @ 100 mls/hr 10/06/20 01:15 Normal Saline IV ASDIRECTED TONY Sodium Chloride 100 mls @ 60 mls/hr 10/06/20 02:00 10/06/20 02:21 Normal Saline IV 60 mls/hr ASDIRECTED TONY Administration Discontinued Medications Generic Name Dose Route Start Last Admin Trade Name Freq PRN Reason Stop Dose Admin Dexamethasone 6 mg 10/06/20 02:21 Dexamethasone PO 10/06/20 02:22 ONETIME STA Remdesivir 200 mg/ Sodium 250 mls @ 250 mls/hr 10/06/20 02:23 Chloride IV 10/06/20 02:24 ONETIME ONE Iopamidol 50 ml 10/06/20 01:47 10/06/20 02:21 Isovue-370 (76%) IVPUSH 10/06/20 01:48 50 ml ONETIME ONE Administration - Re-Assessments/Exams Free Text/Narrative Re-Assessment/Exam: 10/05/20 23:52 As above, the patient is brought from [facility] in [facility]. She states that she feels normal, denying dyspnea or pain. We are told the 2 staff members at the assisted living have COVID-19. She is afebrile, but hypoxic at 84% on 2 L of oxygen per nasal cannula, 90% on 3.5 L. Her physical exam demonstrates some rhonchi, but is otherwise grossly unremarkable. I have ordered a work-up that includes several blood tests, 2 sets of blood cultures, an ABG, a swab for both influenza and the SARS-CoV-2 virus, a portable chest x- ray, and an ECG. 10/06/20 00:54 Portable chest radiograph reviewed. 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 Cardiomegaly cannot be ruled out. No pulmonary vascular congestion. No pleural effusions seen on this AP view. The left hemidiaphragm is elevated. There may be an infiltrate of the inferior aspect of the right upper lobe. No pneumothorax. Sternotomy wires noted. Thoracolumbar scoliosis noted. Formal read per the Radiologist pending. The patient's CBC is remarkable for a Hgb slightly depressed at 10.7, with a Hct within normal limits at 35.5. There is mild thrombocytopenia of 141,000. Her CMP is remarkable for a BUN/Cr slightly elevated at 22/1.1, and mild hyperglycemia of 142, with the remainder of her CMP being unremarkable. Her magnesium level is slightly depressed at 1.7. Her troponin is undetectably low. Her pro-BNP is modestly elevated at 1741. Her D-dimer is mildly elevated at 0.73. Her coags are within normal limits. Her ABG represents a primary metabolic alkalosis with secondary respiratory alkalosis. Her lactic acid level and swabs for both influenza and the SARS-CoV-2 virus have not yet resulted. Review of prior labs finds that the patient's pro-BNP was 252 on 05/18/2018. Based on the above, I will order a CT angiogram of the chest along with some IV fluid. 10/06/20 01:14 The patient's lactic acid level is within normal limits at 1.1. Her swab for the influenza virus has returned negative. Her swab for the SARS-CoV-2 virus has returned positive. 10/06/20 02:37 CT angiogram of the chest is read by [facility] as: 1. No evidence for acute pulmonary embolic disease. 2. Enlarged central pulmonary arteries suggest pulmonary artery hypertension. 3. Extensive bilateral pulmonary opacities suggest viral/atypical pneumonia. 4. Elevated left hemidiaphragm. 5. Ectatic ascending thoracic aorta. Stable ascending thoracic aorta pseudoaneurysm. 10/06/20 02:40 Test results discussed with the patient. Both oral dexamethasone and IV remdesivir have already been ordered. Admission to the hospital is indicated. The patient agreed. 10/06/20 02:[address] Currie at 02:41. He agreed to admit the patient to the floor. Departure - Departure Time of Disposition: 02:42 Disposition: Admitted As Inpatient 64 Clinical Impression: COVID-19, Hypoxemia - Discharge Information *PRESCRIPTION DRUG MONITORING PROGRAM REVIEWED*: Not Applicable *COPY OF PRESCRIPTION DRUG MONITORING REPORT IN PATIENT TEJAS: Not Applicable Referrals: Ilsa Bingham PA-C [Physician Clerical Warehouse Worker] - Forms: ED Department Discharge Sepsis Event Note (ED) - Evaluation Sepsis Screening Result: No Definite Risk - Focused Exam Vital Signs: Vital Signs Temp Pulse Resp BP Pulse Ox 10/05/20 23:26 37.1 C 80 18 129/79 84 L - My Orders Last 24 Hours: My Active Orders 10/05/20 23:50 EKG Documentation Completion [RC] STAT Chest 1V Frontal [CR] Stat CULTURE BLOOD [BC] Stat CULTURE BLOOD [BC] Stat Blood Culture x2 Reflex Set [OM.PC] Stat 10/06/20 01:02 Ang Chest [CT] Stat 10/06/20 01:15 Sodium Chloride 0.9% [Normal Saline] 1,000 ml IV ASDIRECTED 10/06/20 02:00 Sodium Chloride 0.9% [Normal Saline] 100 ml IV ASDIRECTED 10/07/20 02:30 HEPATIC FUNCTION PANEL,HFP [CHEM] DAILY 10/08/20 02:30 HEPATIC FUNCTION PANEL,HFP [CHEM] DAILY 10/09/20 02:30 HEPATIC FUNCTION PANEL,HFP [CHEM] DAILY 10/10/20 02:30 HEPATIC FUNCTION PANEL,HFP [CHEM] DAILY - Assessment/Plan Last 24 Hours: My Active Orders 10/05/20 23:50 EKG Documentation Completion [RC] STAT Chest 1V Frontal [CR] Stat CULTURE BLOOD [BC] Stat CULTURE BLOOD [BC] Stat Blood Culture x2 Reflex Set [OM.PC] Stat 10/06/20 01:02 Ang Chest [CT] Stat 10/06/20 01:15 Sodium Chloride 0.9% [Normal Saline] 1,000 ml IV ASDIRECTED 10/06/20 02:00 Sodium Chloride 0.9% [Normal Saline] 100 ml IV ASDIRECTED 10/07/20 02:30 HEPATIC FUNCTION PANEL,HFP [CHEM] DAILY 10/08/20 02:30 HEPATIC FUNCTION PANEL,HFP [CHEM] DAILY 10/09/20 02:30 HEPATIC FUNCTION PANEL,HFP [CHEM] DAILY 10/10/20 02:30 HEPATIC FUNCTION PANEL,HFP [CHEM] DAILY
[2020-10-06 01:13] LABS: CORONAVIRUS COVID-19 NAA POSITIVE (NEGATIVE)
[2020-10-06] MEDS ORDERED: Sodium Chloride 0.9% 1,000 ML IV SCH (01:15)
[2020-10-06] MEDS ORDERED: Iopamidol 755 MG/ML 50 ML Bottle IVPUSH ONE (01:47)
[2020-10-06] MEDS ORDERED: Sodium Chloride 0.9% 100 ML IV SCH (02:00)
[2020-10-06] MEDS ORDERED: Dexamethasone 4 MG Tab PO STA (02:21)
[2020-10-06] MEDS ORDERED: REMDESIVIR 200 MG in Sodium Chloride 0.9% 250 ML IV ONE (02:23)
[2020-10-06] MEDS ORDERED: Magnesium Sulfate/Water 2 GM/50 ML BAG IV ONE (04:41)
[2020-10-06] MEDS ORDERED: Magnesium Sulfate/Water 2 GM/50 ML BAG IV SCH (04:45)
--- NOTE | 2020-10-06 07:26 | PCM.HP.2 ---
H&P History of Present Illness - General Date of Service: 10/06/20 Admit Problem/Dx: Admission Diagnosis/Problem Admission Diagnosis/Problem Hypoxia - History of Present Illness Initial Comments - Free Text/Narative: This is an 85-year-old female who resides at [facility] and presents to ED on 10/05/2020 very late at night via EMS. Ambulance was reportedly called due to hypoxia. Patient usually wears 2 L of oxygen at home however she was reportedly requiring 3 L and only able to maintain 92%. This was accompanied by a cough and a low-grade temp however the patient states her cough is chronic and she denies any fever, chills, chest pain, or chest discomfort. Patient reports she had her first dose of the COVID-19 vaccine on 10/03/2020. It is reported that 2 staff members were positive recently and she had contact with them. In the ED she was 84% on 2 L of oxygen via nasal cannula and went up to 90% on 3-1/2 L of oxygen via nasal cannula. Temp was 37.1. Pulse 80. Respirations 18. Blood pressure 129/79. Twelve-lead EKG is obtained showing a sinus rhythm at 79 bpm with extreme axis deviation, enlarged P waves suggesting LAE, right bundle branch block with LPFB. No change from 02/01/2017. Labs were obtained showing a WBC of 9.43. Hemoglobin is 10.7. Hematocrit 35.5. Platelets are low at 141,000. Neutrophils are elevated at 91%. There is 2% bandemia noted. INR is 1.01. D-dimer 0.73. Sodium 140. Potassium 3.8. Chloride 101. Carbon dioxide 31. Anion gap 11.8. BUN is 22. Creatinine is 1.1. GFR is 47. Glucose is 142. Calcium 9.3. Magnesium low at 1.7. Bilirubin 1.0. AST is 25, ALT 15, alkaline phosphatase 65. Troponin is less than 0.017. Protein 7.3. Albumin 2.9. ABGs obtained in the left brachial with a pH of 7.46. PCO2 of 43.4. PO2 of 60.0. HCO3 is 30.7. O2 saturation is 93.3. Base excess is 6.6. AA gradient is 128. This is obtained while on a nasal cannula 3.5 L. Lactic acid is 1.1. proBNP 1741. Influenza a and B are both negative however patient is positive for SARS-CoV-2 RNA. She is given 6 mg p.o. dexamethasone and a 200 mg loading dose of remdesivir. CT angiogram is obtained interpreted by Ulises as: "1. No evidence for acute pulmonary embolic disease. 2. Enlarged central pulmonary arteries suggesting pulmonary artery hypertension. 3. Extensive bilateral pulmonary opacities suggest viral/atypical pneumonia. 4. Elevated left hemidiaphragm. 5. Ectatic ascending thoracic aorta. Stable ascending thoracic aorta pseudoaneurysm. Dust x-rays obtained with radiologist read pending. Possible infiltrate in inferior aspect of the right upper lobe is noted along with many other nonacute findings. She carries a history of heart failure, hypertension, GERD, arthritis, osteoporosis, scoliosis, basal 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, thyroid cancer status post excision. She was never a smoker. She is a DNR. Her PCP is Ilsa Bingham PA-C. - Related Data Allergies/Adverse Reactions: Allergies Allergy/AdvReac Type Severity Reaction Status Date / Time No Known Allergies Allergy Verified 10/06/20 04:54 Home Medications: Home Meds Calcium Carbonate/Vitamin D3 [Calcium 500-Vit D3 125 Caplet] 1 each PO BID 09/23/16 [History] Montelukast [Singulair] 10 mg PO DAILY 09/23/16 [History] Omeprazole 20 mg PO DAILY 09/23/16 [History] Vit A/C/E AC/Znox/Cupric Oxide [Eye Vitamin-Minerals Tablet] 1 each PO DAILY 09/23/16 [History] Potassium Chloride 20 meq PO BID #60 tab.er.prt 09/28/16 [Rx] Furosemide [Lasix] 60 mg PO DAILY 12/16/16 [History] Budesonide [Pulmicort] 0.5 mg IH BID 01/13/17 [History] Acetaminophen [Tylenol] 650 mg PO Q4H PRN 02/01/17 [History] Dextromethorphan/guaiFENesin [Robitussin DM] 10 ml PO Q4H PRN 02/01/17 [History] Docusate Sodium 100 mg PO BID PRN 02/01/17 [History] Oxybutynin Chloride 5 mg PO DAILY 02/01/17 [History] Psyllium [Metamucil] 2 tab PO BID 02/01/17 [History] Sodium Chloride [Saline Nasal [place]] 2 spray INH Q2H PRN 02/01/17 [History] traMADol [Ultram] 50 mg PO Q6H PRN 02/01/17 [History] Albuterol [Proventil Neb Soln] 1 dose IH QID PRN 10/05/20 [History] Aspirin [Adult Low Dose Aspirin EC] 81 mg PO DAILY 10/05/20 [History] Furosemide [Lasix] 20 mg PO DAILY PRN 10/05/20 [History] Levothyroxine 75 mcg PO SUSA 10/05/20 [History] Levothyroxine [Synthroid] 50 mcg PO MOTUWETHFR 10/05/20 [History] Nystatin [Nystatin Crm] 1 applic TOP DAILY PRN 10/05/20 [History] Polyvinyl Alcohol/Povidone/Pf [Refresh Classic Eye Drops] 1 drop EYEBOTH ASDIRECTED PRN 10/05/20 [History] Simvastatin [Zocor] 5 mg PO BEDTIME 10/05/20 [History] Past Medical History HEENT History: Reports: Macular Degeneration Cardiovascular History: Reports: Heart Failure, Hypertension Respiratory History: Reports: SOB Other Respiratory History: started on oxygen 11/05/16 Gastrointestinal History: Reports: GERD FISH ICER History: Reports: Musculoskeletal History: Reports: Arthritis, Osteoporosis, Other (See Below) (Scoliosis) Other Musculoskeletal History: scoliosis, bilateral knee replacement, right hip replacement Oncologic (Cancer) History: Reports: Basal Cell Carcinoma (nose), Thyroid (s/p excision) Other Oncologic History: Thyoma carcinoma, 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 - Infectious Disease History Infectious Disease History: Reports: Chicken Pox, Measles, Mumps - Past Surgical History HEENT Surgical History: Reports: Adenoidectomy, Cataract Surgery (bilateral), Tonsillectomy Female Surgical History: Reports: Hysterectomy Musculoskeletal Surgical History: Reports: Hip Replacement (right), Knee Replacement (bilateral) Oncologic Surgical History: Reports: Other (See Below) (Thyroidectomy) Social & Family History - Family History Family Medical History: No Pertinent Family History - Tobacco Use Tobacco Use Status *Q: Never Tobacco User Second Hand Smoke Exposure: No - Caffeine Use Caffeine Use: Reports: Coffee Other Caffeine Use: on occassion she salazar have a cup of coffee with caffeine in it. - Recreational Drug Use Recreational Drug Use: No - Living Situation & Occupation Living situation: Reports: , Assisted Living ([facility]) Occupation: Retired H&P Review of Systems - Review of Systems: Review Of Systems: See Below General: Reports: Fever (Per [facility] ). Denies: Chills, Malaise, Weakness, Fatigue HEENT: Denies: Headaches, Sore Throat Pulmonary: Reports: Shortness of Breath, Cough. Denies: Wheezing, Pleuritic Chest Pain, Sputum, Hemoptysis Cardiovascular: Reports: Dyspnea on Exertion, Edema (chronic ). Denies: Chest Pain, Palpitations, Orthopnea, Lightheadedness Gastrointestinal: Reports: No Symptoms. Denies: Abdominal Pain, Constipation, Diarrhea, Nausea, Vomiting Genitourinary: Denies: Pain Musculoskeletal: Reports: No Symptoms Skin: Reports: No Symptoms Psychiatric: Reports: No Symptoms. Denies: Confusion Neurological: Reports: No Symptoms. Denies: Numbness, Pre-Existing Deficit, Tingling, Difficulty Walking, Weakness, Gait Disturbance Exam - Exam Exam: See Below - Vital Signs Vital Signs: Last Vital Signs Temp 98.2 F 10/06/20 04:02 Pulse 75 10/06/20 04:02 Resp 18 10/06/20 04:02 BP 114/92 H 10/06/20 04:02 Pulse Ox 94 L 10/06/20 04:02 Weight: 127 lb 1.6 oz - Exam Quality Assessment: Supplemental Oxygen (High flow 30/60), DVT Prophylaxis. No: Urinary Catheter General: Alert, Oriented, Cooperative, Mild Distress HEENT: Conjunctiva Clear, EACs Clear, Mucosa Moist & [place], Posterior Pharynx Clear Neck: Supple, Trachea Midline Lungs: Normal Respiratory Effort, Decreased Breath Sounds, Rhonchi, Wheezing Cardiovascular: Regular Rate, Regular Rhythm, Systolic Murmur GI/Abdominal Exam: Normal Bowel Sounds, Soft, Non-Tender, No Distention (Female) Exam: Deferred Rectal (Female) Exam: Deferred Back Exam: Full Range of Motion, Other (Scoliosis ) Extremities: Normal Inspection, Normal Range of Motion, Non-Tender, Pedal Edema Skin: Warm, Dry, Intact Neurological: Cranial Nerves Intact (Grossly ) Neuro Extensive - Mental Status: Alert, Oriented x3, Normal Mood/Affect - Patient Data Lab Results Last 24 hrs: Laboratory Results - last 24 hr 10/05/20 10/05/20 10/05/20 Range/Units 23:45 23:45 23:45 WBC 9.43 (3.98-10.04) K/mm3 RBC 3.78 L (3.98-5.22) M/mm3 Hgb 10.7 L (11.2-15.7) gm/dl Hct 35.5 (34.1-44.9) % MCV 93.9 (79.4-94.8) fl MCH 28.3 (25.6-32.2) pg MCHC 30.1 L (32.2-35.5) g/dl RDW Std Deviation 50.1 H (36.4-46.3) fL Plt Count 141 L (182-369) K/mm3 MPV 11.8 (9.4-12.3) fl Neutrophils % (Manual) 91 H (40-60) % Band Neutrophils % 2 (0-10) % Lymphocytes % (Manual) 2 L (20-40) % Atypical Lymphs % 0 % Monocytes % (Manual) 5 (2-10) % Eosinophils % (Manual) 0 L (0.7-5.8) % Basophils % (Manual) 0 L (0.1-1.2) Platelet Estimate Adequate Polychromasia 1+ slight Anisocytosis 1+ slight Stomatocytes 1+ slight RBC Morph Comment Not Reportable ESR (0-20) mm/hr PT 10.8 (9.7-12.0) SECONDS INR 1.01 APTT 28.0 (21.7-31.4) SECONDS D-Dimer, Quantitative 0.73 H (0.19-0.50) mg/L Puncture Site ABG pH (7.35-7.45) ABG pCO2 (35.0-45.0) mmHg ABG pO2 (80.0-100.0) mmHg ABG HCO3 (22.0-26.0) meq/L ABG O2 Saturation (96.0-97.0) % ABG Base Excess (-2-2.0) A-a Gradient mmHg O2 Delivery Device Oxygen Flow Rate FiO2 (21.00-100.00) % Sodium 140 (136-145) mEq/L Potassium 3.8 (3.5-5.1) mEq/L Chloride 101 (98-107) mEq/L Carbon Dioxide 31 (21-32) mEq/L Anion Gap 11.8 (5-15) BUN 22 H (7-18) mg/dL Creatinine 1.1 H (0.55-1.02) mg/dL Est Cr Clr Drug Dosing 25.88 mL/min Estimated GFR (MDRD) 47 (>60) mL/min BUN/Creatinine Ratio 20.0 H (14-18) Glucose 142 H (83-115) mg/dL Lactic Acid (0.4-2.0) mmol/L Calcium 9.3 (8.5-10.1) mg/dL Magnesium 1.7 L (1.8-2.4) mg/dl Ferritin (8-252) ng/ml Total Bilirubin 1.0 (0.2-1.0) mg/dL AST 25 (15-37) U/L ALT 15 (14-59) U/L Alkaline Phosphatase 65 (46-116) U/L Lactate Dehydrogenase (81-234) U/L Troponin I < 0.017 (0.00-0.056) ng/mL C-Reactive Protein (<1.0) mg/dL NT-Pro-B Natriuret Pep (0-450) pg/mL Total Protein 7.3 (6.4-8.2) g/dl Albumin 2.9 L (3.4-5.0) g/dl Globulin 4.4 gm/dL Albumin/Globulin Ratio 0.7 L (1-2) Influenza Type A RNA (NEGATIVE) Influenza Type B RNA (NEGATIVE) SARS-CoV-2 RNA (ELOISA) (NEGATIVE) 10/05/20 10/05/20 10/05/20 Range/Units 23:45 23:45 23:45 WBC (3.98-10.04) K/mm3 RBC (3.98-5.22) M/mm3 Hgb (11.2-15.7) gm/dl Hct (34.1-44.9) % MCV (79.4-94.8) fl MCH (25.6-32.2) pg MCHC (32.2-35.5) g/dl RDW Std Deviation (36.4-46.3) fL Plt Count (182-369) K/mm3 MPV (9.4-12.3) fl Neutrophils % (Manual) (40-60) % Band Neutrophils % (0-10) % Lymphocytes % (Manual) (20-40) % Atypical Lymphs % % Monocytes % (Manual) (2-10) % Eosinophils % (Manual) (0.7-5.8) % Basophils % (Manual) (0.1-1.2) Platelet Estimate Polychromasia Anisocytosis Stomatocytes RBC Morph Comment ESR (0-20) mm/hr PT (9.7-12.0) SECONDS INR APTT (21.7-31.4) SECONDS D-Dimer, Quantitative (0.19-0.50) mg/L Puncture Site ABG pH (7.35-7.45) ABG pCO2 (35.0-45.0) mmHg ABG pO2 (80.0-100.0) mmHg ABG HCO3 (22.0-26.0) meq/L ABG O2 Saturation (96.0-97.0) % ABG Base Excess (-2-2.0) A-a Gradient mmHg O2 Delivery Device Oxygen Flow Rate FiO2 (21.00-100.00) % Sodium (136-145) mEq/L Potassium (3.5-5.1) mEq/L Chloride (98-107) mEq/L Carbon Dioxide (21-32) mEq/L Anion Gap (5-15) BUN (7-18) mg/dL Creatinine (0.55-1.02) mg/dL Est Cr Clr Drug Dosing mL/min Estimated GFR (MDRD) (>60) mL/min BUN/Creatinine Ratio (14-18) Glucose (83-115) mg/dL Lactic Acid (0.4-2.0) mmol/L Calcium (8.5-10.1) mg/dL Magnesium (1.8-2.4) mg/dl Ferritin 87 (8-252) ng/ml Total Bilirubin (0.2-1.0) mg/dL AST (15-37) U/L ALT (14-59) U/L Alkaline Phosphatase (46-116) U/L Lactate Dehydrogenase 255 H (81-234) U/L Troponin I (0.00-0.056) ng/mL C-Reactive Protein 20.9 H* (<1.0) mg/dL NT-Pro-B Natriuret Pep 1741 H (0-450) pg/mL Total Protein (6.4-8.2) g/dl Albumin (3.4-5.0) g/dl Globulin gm/dL Albumin/Globulin Ratio (1-2) Influenza Type A RNA (NEGATIVE) Influenza Type B RNA (NEGATIVE) SARS-CoV-2 RNA (ELOISA) (NEGATIVE) 10/05/20 10/06/20 10/06/20 Range/Units 23:45 00:10 00:15 WBC (3.98-10.04) K/mm3 RBC (3.98-5.22) M/mm3 Hgb (11.2-15.7) gm/dl Hct (34.1-44.9) % MCV (79.4-94.8) fl MCH (25.6-32.2) pg MCHC (32.2-35.5) g/dl RDW Std Deviation (36.4-46.3) fL Plt Count (182-369) K/mm3 MPV (9.4-12.3) fl Neutrophils % (Manual) (40-60) % Band Neutrophils % (0-10) % Lymphocytes % (Manual) (20-40) % Atypical Lymphs % % Monocytes % (Manual) (2-10) % Eosinophils % (Manual) (0.7-5.8) % Basophils % (Manual) (0.1-1.2) Platelet Estimate Polychromasia Anisocytosis Stomatocytes RBC Morph Comment ESR 53 H (0-20) mm/hr PT (9.7-12.0) SECONDS INR APTT (21.7-31.4) SECONDS D-Dimer, Quantitative (0.19-0.50) mg/L Puncture Site Lt brachial ABG pH 7.46 H (7.35-7.45) ABG pCO2 43.4 (35.0-45.0) mmHg ABG pO2 60.0 L (80.0-100.0) mmHg ABG HCO3 30.7 H (22.0-26.0) meq/L ABG O2 Saturation 93.3 L (96.0-97.0) % ABG Base Excess 6.6 H (-2-2.0) A-a Gradient 128 mmHg O2 Delivery Device Nasal cannula Oxygen Flow Rate 3.5 FiO2 34.00 (21.00-100.00) % Sodium (136-145) mEq/L Potassium (3.5-5.1) mEq/L Chloride (98-107) mEq/L Carbon Dioxide (21-32) mEq/L Anion Gap (5-15) BUN (7-18) mg/dL Creatinine (0.55-1.02) mg/dL Est Cr Clr Drug Dosing mL/min Estimated GFR (MDRD) (>60) mL/min BUN/Creatinine Ratio (14-18) Glucose (83-115) mg/dL Lactic Acid 1.1 (0.4-2.0) mmol/L Calcium (8.5-10.1) mg/dL Magnesium (1.8-2.4) mg/dl Ferritin (8-252) ng/ml Total Bilirubin (0.2-1.0) mg/dL AST (15-37) U/L ALT (14-59) U/L Alkaline Phosphatase (46-116) U/L Lactate Dehydrogenase (81-234) U/L Troponin I (0.00-0.056) ng/mL C-Reactive Protein (<1.0) mg/dL NT-Pro-B Natriuret Pep (0-450) pg/mL Total Protein (6.4-8.2) g/dl Albumin (3.4-5.0) g/dl Globulin gm/dL Albumin/Globulin Ratio (1-2) Influenza Type A RNA (NEGATIVE) Influenza Type B RNA (NEGATIVE) SARS-CoV-2 RNA (ELOISA) (NEGATIVE) 10/06/20 Range/Units 00:20 WBC (3.98-10.04) K/mm3 RBC (3.98-5.22) M/mm3 Hgb (11.2-15.7) gm/dl Hct (34.1-44.9) % MCV (79.4-94.8) fl MCH (25.6-32.2) pg MCHC (32.2-35.5) g/dl RDW Std Deviation (36.4-46.3) fL Plt Count (182-369) K/mm3 MPV (9.4-12.3) fl Neutrophils % (Manual) (40-60) % Band Neutrophils % (0-10) % Lymphocytes % (Manual) (20-40) % Atypical Lymphs % % Monocytes % (Manual) (2-10) % Eosinophils % (Manual) (0.7-5.8) % Basophils % (Manual) (0.1-1.2) Platelet Estimate Polychromasia Anisocytosis Stomatocytes RBC Morph Comment ESR (0-20) mm/hr PT (9.7-12.0) SECONDS INR APTT (21.7-31.4) SECONDS D-Dimer, Quantitative (0.19-0.50) mg/L Puncture Site ABG pH (7.35-7.45) ABG pCO2 (35.0-45.0) mmHg ABG pO2 (80.0-100.0) mmHg ABG HCO3 (22.0-26.0) meq/L ABG O2 Saturation (96.0-97.0) % ABG Base Excess (-2-2.0) A-a Gradient mmHg O2 Delivery Device Oxygen Flow Rate FiO2 (21.00-100.00) % Sodium (136-145) mEq/L Potassium (3.5-5.1) mEq/L Chloride (98-107) mEq/L Carbon Dioxide (21-32) mEq/L Anion Gap (5-15) BUN (7-18) mg/dL Creatinine (0.55-1.02) mg/dL Est Cr Clr Drug Dosing mL/min Estimated GFR (MDRD) (>60) mL/min BUN/Creatinine Ratio (14-18) Glucose (83-115) mg/dL Lactic Acid (0.4-2.0) mmol/L Calcium (8.5-10.1) mg/dL Magnesium (1.8-2.4) mg/dl Ferritin (8-252) ng/ml Total Bilirubin (0.2-1.0) mg/dL AST (15-37) U/L ALT (14-59) U/L Alkaline Phosphatase (46-116) U/L Lactate Dehydrogenase (81-234) U/L Troponin I (0.00-0.056) ng/mL C-Reactive Protein (<1.0) mg/dL NT-Pro-B Natriuret Pep (0-450) pg/mL Total Protein (6.4-8.2) g/dl Albumin (3.4-5.0) g/dl Globulin gm/dL Albumin/Globulin Ratio (1-2) Influenza Type A RNA Negative (NEGATIVE) Influenza Type B RNA Negative (NEGATIVE) SARS-CoV-2 RNA (ELOISA) Positive H (NEGATIVE) Result Diagrams: 10/05/20 23:45 10/05/20 23:45 Sepsis Event Note - Evaluation Sepsis Screening Result: No Definite Risk - Focused Exam Vital Signs: Vital Signs Temp Temp Pulse Pulse Resp BP BP 10/06/20 04:02 98.2 F 75 18 114/92 H 10/05/20 23:26 98.8 F 80 18 129/79 Pulse Ox 10/06/20 04:02 94 L 10/05/20 23:26 84 L - Problem List (1) GERD (gastroesophageal reflux disease) SNOMED Code(s): 214226573 ICD Code: K21.9 - GASTRO-ESOPHAGEAL REFLUX DISEASE WITHOUT ESOPHAGITIS Status: Chronic Priority: Low Current Visit: No Qualifiers: Esophagitis presence: esophagitis presence not specified Qualified Code(s): K21.9 - Gastro-esophageal reflux disease without esophagitis (2) S/P thyroidectomy SNOMED Code(s): 784075922, 34411647, 850845849 ICD Code: E89.0 - POSTPROCEDURAL HYPOTHYROIDISM Status: Chronic Priority: Low Current Visit: No (3) HTN (hypertension) SNOMED Code(s): 66705390 ICD Code: I10 - ESSENTIAL (PRIMARY) HYPERTENSION Status: Chronic Priority: Medium Current Visit: No Qualifiers: Hypertension type: unspecified Qualified Code(s): I10 - Essential (primary) hypertension (4) COVID-19 SNOMED Code(s): 337477399 ICD Code: U07.1 - COVID-19 Status: Acute Priority: High Current Visit: Yes (5) Hypoxemia SNOMED Code(s): 221040968 ICD Code: R09.02 - HYPOXEMIA Status: Acute Priority: High Current Visit: Yes (6) CHF (congestive heart failure) SNOMED Code(s): 12871464 ICD Code: I50.9 - HEART FAILURE, UNSPECIFIED Status: Chronic Priority: Low Current Visit: No (7) Hypomagnesemia SNOMED Code(s): 783073678 ICD Code: E83.42 - HYPOMAGNESEMIA Status: Acute Priority: High Current Visit: Yes Problem List Initiated/Reviewed/Updated: Yes Orders Last 24hrs: Active Orders 24 hr Category Date Time Status Patient Status [ADT] Routine ADT 10/06/20 02:53 Active Activity as Tolerated [RC] .Routine Care 10/06/20 04:37 Active Oxygen Therapy Adult [Oxygen Therapy] [RC] ASDIRECTED Care 10/06/20 04:38 Active Regular Diet [DIET] Diet 10/06/20 Breakfast Active Ang Chest [CT] Stat Exams 10/06/20 01:02 Taken Chest 1V Frontal [CR] Stat Exams 10/05/20 23:50 Taken CULTURE BLOOD [BC] Stat Lab 10/05/20 23:50 Received CULTURE BLOOD [BC] Stat Lab 10/05/20 23:50 Received HEPATIC FUNCTION PANEL,HFP [CHEM] DAILY Lab 10/07/20 02:30 Ordered HEPATIC FUNCTION PANEL,HFP [CHEM] DAILY Lab 10/08/20 02:30 Ordered HEPATIC FUNCTION PANEL,HFP [CHEM] DAILY Lab 10/09/20 02:30 Ordered HEPATIC FUNCTION PANEL,HFP [CHEM] DAILY Lab 10/10/20 02:30 Ordered METH-RESIST S.AUR,MRSA BY PCR [MOLEC] Routine Lab 10/06/20 04:05 Received Enoxaparin [Lovenox] Med 10/06/20 09:00 Once 40 mg SUBCUT ONETIME ONE Blood Culture x2 Reflex Set [OM.PC] Stat Oth 10/05/20 23:50 Ordered Code Status [Resuscitation Status] Routine Resus Stat 10/06/20 04:42 Ordered Medication Orders Enoxaparin Sodium (Lovenox) 40 mg SUBCUT ONETIME ONE Stop: 10/06/20 09:01 Assessment/Plan Comment:: Assessment - Day of admission - 10/06/2020 * 85 Yo female presents to ED via [facility] with hypoxia and "low grade" fever * Received COVID-19 vaccine on 10/03/2020 (first dose) * Reportedly 92% saturations aon 3L with baseline home oxygen use of 2L. * Known exposure to COVID-19 as 2 staff were reportedly sick * Reports cough that is chronic. Denies fever, chills, CP, headaches, dyspnea, or other complaints * Hx/o CHF, HTN, GERD, Arthritis, Osteoporosis, Basal cell carcinoma of nose, Thyroid ca s/p excision, macular degeneration * 12-lead EKG in ED shows Sinus rhythm at 79 BPM with enlarged P-waves, RBBB, LPFB, and no change from 02/01/2017 * Labs in ED * WBC 9.43 * Hgb 10.7 * Plt 141 * Neutrophils 91% * Band Neutrophils 2% * INR 1.01 * D-Dimer 0.73 * Lactic acid 1.1 * Pro-BNP 1741 * Sodium 140 * Potassium 3.8 * Carbon Dioxide 31 * Anion gap 11.8 * BUN 22, Creatinine 1.1, GFR 47 * Glucose 142 * Magnesium 1.7 * Bilirubin 1.0 * AST 25, ALT 15, Alk Phos 65 * Troponin >0.017 * Albumin 2.9 * Influenza A/B - negative * SARS-CoV-2 RNA - Positive * ABG in ED: Left brachial, pH 7.46, PCO2 43.4, PO2 of 60, HCO3 of 30.7, O2 saturation 93.3, base excess 6.6, A-a gradient 129, Obtained on 3.5 L NC * CXR in ED shows possible infiltrate in inferior aspect of right upper lobe and other chronic findings * CT angiogram of the chest: * 1. No evidence for acute pulmonary embolic disease * 2. Enlarged central pulmonary arteries suggest pulmonary artery hypertension * 3. Extensive bilateral pulmonary opacities suspect viral/atypical pneumonia * 4. Elevated left hemidiaphragm. * 5. Ectatic ascending thoracic aorta. Stable ascending thoracic aorta pseudoaneurysm. * Started on 6mg dexamethasone and 200mg Remdisivir * Admitted to hospital inpatient with telemetry. PLAN: COVID-19 Hypoxemia * O2 as needed with saturation goal of 88-94% * High flow * Continue dexamethasone - Day 10/05 * Continue remdesivir day 09/30 * PRN albuterol * Home respiratory med * Encourage ambulation around room * Prone whenever able * IS/Acapella * RT consultation * Telemetry/continuous pulse oximeter * PT/OT consultation * CM/SW consultation * Airborne/contact isolation * Start zinc/vitamin D supplementation * Check vitamin D level * Daily labs as ordered * Q48hr D-Dimer * Start daily Lovenox and monitor D-Dimer * Caution with IV fluids * Blood cultures pending * Check procalcitonin from admission * Start 2gm rocephin daily - day 1 * Start 500mg PO azithromycin daily - day 09/28 Hypomagnesemia * Supplemented in ED * Follow labs GERD (gastroesophageal reflux disease) Macular degeneration S/P thyroidectomy HTN (hypertension) CHF (congestive heart failure) * Home medications as ordered * Hold PPI and start H2 tory Code status: Full Code PCP: Ilsa Bingham PA-C DVT prophylaxis: Lovenox Social: Patient resides at [facility] Disposition: Patient admitted for treatment of COVID-19, hypoxia. LOS >96 Hrs for treatment. - Mortality Measure Prognosis:: Good
[2020-10-06] MEDS ORDERED: Acetaminophen 325 MG Tab PO PRN (07:41)
[2020-10-06] MEDS ORDERED: traMADol 50 MG Tab PO PRN (07:42)
[2020-10-06] MEDS ORDERED: guaiFENesin/Dextromethorphan 100-10 MG/5 ML Soln 5 ML Cup PO PRN (07:42)
[2020-10-06] MEDS ORDERED: Docusate Sodium 100 MG Cap PO PRN (07:42)
[2020-10-06] MEDS ORDERED: Ondansetron 4 MG/2 ML SDV IV PRN (07:46)
[2020-10-06] MEDS ORDERED: Albuterol 6.7 GM Inhaler INH PRN (07:48)
[2020-10-06] MEDS ORDERED: Carboxymethylcellulose Sodium 1% Ophth Gel 15 ML Bottle EYEBOTH PRN (07:53)
[2020-10-06] MEDS ORDERED: Enoxaparin 30 MG/0.3 ML Syringe SUBCUT ONE (08:00)
--- NOTE | 2020-10-06 08:36 | CT ---
CT chest Technique: Multiple axial sections through the chest were obtained. Intravenous contrast was utilized. Study has been performed as a pulmonary angiogram protocol. Comparison: Prior CT chest study performed on 02/01/17. Findings: Ascending aorta is mildly prominent with AP dimension of 4.5 cm which is stable from previous exam. Pulmonary arteries are mildly increased in size which are also stable from previous exam. Pulmonary arteries show no filling defects to indicate pulmonary embolism. No pericardial thickening is seen. Heart is slightly enlarged. Mediastinum appears within normal limits. Elevated left hemidiaphragm is seen which is a stable finding. Patchy areas of increased density are noted within the right upper and right lower chest. Slight atelectasis is seen posteriorly within the left chest. Atelectasis is noted above the left hemidiaphragm. Bone window settings were reviewed which show diffuse degenerative change within the spine with previous sternotomy. Scoliosis is also present within the spine. Degenerative change is seen within both shoulders. No acute osseous finding is definitely appreciated. Impression: 1. No findings of pulmonary embolism. 2. Patchy areas of increased density within the right upper and right lower chest, please correlate if patient has any symptoms of COVID pneumonia. Findings could otherwise represent other forms of pneumonia. 3. Elevated left hemidiaphragm and other findings as noted above which are stable. Diagnostic code #3 I agree with preliminary report from [facility], finalized on 10/06/20, 3:33 AM [employer]
[2020-10-06] MEDS: Budesonide 0.5 MG/2 ML Neb Susp INH SCH ×2 (08:39→20:17)
[2020-10-06] MEDS ORDERED: Famotidine 20 MG Tab PO SCH (09:00)
[2020-10-06] MEDS ORDERED: Cholecalciferol (Vitamin D3) 5,000 UNIT Cap PO SCH (09:00)
[2020-10-06] MEDS ORDERED: Furosemide 40 MG Tab PO SCH (09:00)
[2020-10-06] MEDS ORDERED: Montelukast 10 MG Tab PO SCH (09:00)
[2020-10-06] MEDS ORDERED: cefTRIAXone 2 GM in Sodium Chloride 0.9% 100 ML IV SCH (09:00)
[2020-10-06] MEDS ORDERED: Zinc Sulfate 220 MG Cap PO SCH (09:00)
[2020-10-06] MEDS ORDERED: Oxybutynin 5 MG Tab PO SCH (09:00)
[2020-10-06] MEDS ORDERED: Aspirin 81 MG Tab.EC PO SCH (09:00)
[2020-10-06] MEDS ORDERED: Azithromycin 250 MG Tab PO SCH (09:00)
--- NOTE | 2020-10-06 09:01 | CR ---
Chest: Portable view of the chest was obtained. Comparison: Prior chest x-ray of 01/16/19. Heart is enlarged. Slight increased density is noted within the right chest. Left lung is clear. Prior sternotomy is noted. Degenerative change is noted within both shoulders. Impression: 1. Mild increased density within the right chest raising the possibility of pneumonia. 2. Other findings believed to be stable as noted above. Diagnostic code #3
[2020-10-06] MEDS: Calcium Carbonate/Vitamin D3 600 MG-200 Units Tab PO SCH ×2 (09:55→21:05)
[2020-10-06] MEDS: Potassium Chloride 20 MEQ Tab.ER PO SCH ×2 (09:55→21:06)
[2020-10-06] MEDS: Enoxaparin 30 MG/0.3 ML Syringe SUBCUT SCH (09:57)
--- NOTE | 2020-10-06 10:52 | CR ---
Chest: Frontal view of the chest was obtained. Comparison: Prior CT chest study performed earlier on 10/06/20 and chest x-ray also of 10/06/20. Increasing parenchymal density within the right chest from prior study. Elevated left hemidiaphragm is seen. Heart size and mediastinum are stable. Severe degenerative change within both shoulders. Scoliosis is noted within the spine. Impression: 1. Increasing density within the right chest from prior study performed earlier on the same day. 2. Other stable findings as noted above. Diagnostic code #3
[2020-10-06] MEDS ORDERED: Furosemide 40 MG/4 ML VIAL IVPUSH ONE (13:36)
[2020-10-06] MEDS ORDERED: LORazepam 2 MG/ML SDV IVPUSH ONE (13:41)
[2020-10-06] MEDS: Levothyroxine 50 MCG Tab PO SCH (13:50)
[2020-10-06] MEDS ORDERED: Piperacillin/Tazobactam 4.5 GM in Sodium Chloride 0.9% 100 ML IV ONE (14:00)
[2020-10-06] MEDS ORDERED: Simvastatin 10 MG Tab PO SCH (21:00)
[2020-10-06] MEDS ORDERED: Acetaminophen 650 MG Supp RECTAL ONE (22:17)
[2020-10-06] MEDS: Piperacillin/Tazobactam 4.5 GM in Sodium Chloride 0.9% 100 ML IV SCH (22:30)
[2020-10-07] MEDS ORDERED: REMDESIVIR 100 MG in Sodium Chloride 0.9% 100 ML IV SCH (03:00)
[2020-10-07] MEDS ORDERED: Dexamethasone 4 MG Tab PO SCH (06:00)
[2020-10-07] MEDS ORDERED: Acetaminophen 650 MG Supp RECTAL PRN (07:19)
--- NOTE | 2020-10-07 07:24 | PCM.PN ---
<Julian Berman - Last Filed: 10/07/20 10:51> - General Info Date of Service: 10/07/20 Admission Dx/Problem (Free Text): Admission Diagnosis/Problem Admission Diagnosis/Problem Hypoxia Subjective Update: In to see Maria Del Rosario. She is lying in bed and has been tolerating BiPAP. Nursing reports that whenever the patient attempts to remove her BiPAP her saturations dropped into the 60s. Will therefore stop all p.o. medications and switch to IV and rectal. Continue IV Zosyn and vancomycin. Chest x-ray obtained today shows slightly worsening infiltrate on the right side. We will continue BiPAP and work on weaning oxygen. Patient's saturations are currently 94% and she is orientated. Discussed importance of wearing BiPAP mask. Will start gentle IV fluids cautiously over concerns of pulmonary edema. Patient is Covid positive as well. Gerard catheter remains in place for KYLE monitoring. Functional Status: Reports: Pain Controlled, Urinating (Gerard ), New Symptoms, Incentive Spirometry, Other (acapella ). Denies: Tolerating Diet (NPO), Ambulating - Review of Systems General: Reports: Weakness, Fatigue, Malaise. Denies: Fever, Chills HEENT: Denies: Headaches, Sore Throat Pulmonary: Reports: Shortness of Breath, Cough, Sputum. Denies: Pleuritic Chest Pain Cardiovascular: Reports: Dyspnea on Exertion. Denies: Chest Pain, Palpitations Gastrointestinal: Reports: No Symptoms. Denies: Abdominal Pain, Constipation, Diarrhea, Nausea, Vomiting Genitourinary: Reports: No Symptoms. Denies: Pain Musculoskeletal: Reports: No Symptoms Skin: Reports: No Symptoms. Denies: Cyanosis Neurological: Reports: No Symptoms. Denies: Confusion - Patient Data Vitals - Most Recent: Last Vital Signs Temp 98.1 F 10/07/20 06:39 Pulse 72 10/07/20 04:00 Resp 24 H 10/07/20 04:00 BP 117/69 10/07/20 04:00 Pulse Ox 88 L 10/07/20 06:27 Weight - Most Recent: 57.294 kg I&O - Last 24 Hours: Intake & Output 10/06/20 10/07/20 10/07/20 22:59 06:59 14:59 Intake Total 190 191 Output Total 1500 440 Balance -1310 -249 Lab Results Last 24 Hours: Laboratory Results - last 24 hr 10/05/20 10/05/20 10/06/20 Range/Units 23:45 23:45 04:05 Vitamin D 25-Hydroxy 36.3 (30.0-100.0) ng/ml Procalcitonin 0.38 H ng/mL MRSA (PCR) Negative Rashawn Results Last 24 Hours: Microbiology 10/06/20 00:23 Aerobic Blood Culture - Preliminary Blood - Venous - Lab Draw NO GROWTH AFTER 1 DAY Anaerobic Blood Culture - Preliminary NO GROWTH AFTER 1 DAY 10/06/20 00:15 Aerobic Blood Culture - Preliminary Blood - Venous NO GROWTH AFTER 1 DAY Anaerobic Blood Culture - Preliminary NO GROWTH AFTER 1 DAY Med Orders - Current: Current Medications Acetaminophen (Tylenol) 650 mg RECTAL Q6H PRN PRN Reason: Fever Greater Than 101 Albuterol (Proventil Hfa) 0 gm INH Q4H PRN PRN Reason: SOB/Wheezing Artificial Tears (Refresh Liquigel 1%) 0 ml EYEBOTH Q4H PRN PRN Reason: Dry Eyes Budesonide (Pulmicort) 0.5 mg INH BID [facility] Last Admin: 10/06/20 20:17 Dose: 0.5 mg Documented by: Dexamethasone (Decadron) 6 mg IVPUSH DAILY [facility] Stop: 10/15/20 09:01 Enoxaparin Sodium (Lovenox) 30 mg SUBCUT DAILY [facility] Last Admin: 10/06/20 09:57 Dose: 30 mg Documented by: Furosemide (Lasix) 40 mg IVPUSH DAILY [facility] Remdesivir 100 mg/ Sodium (Chloride) 100 mls @ 100 mls/hr IV Q24H [facility] Stop: 10/10/20 03:59 Last Admin: 10/07/20 03:21 Dose: 100 mls/hr Documented by: Piperacillin Sod/Tazobactam (Sod 4.5 gm/ Sodium Chloride) 100 mls @ 25 mls/hr IV Q8H [facility] Last Admin: 10/06/20 22:30 Dose: 25 mls/hr Documented by: Dextrose/Lactated Ringer's (Dextrose 5%-Lactated Ringers) 1,000 mls @ 75 mls/hr IV ASDIRECTED [facility] Discontinued Medications Acetaminophen (Tylenol) 650 mg PO Q4H PRN PRN Reason: Fever Greater Than 101 Acetaminophen (Tylenol) 650 mg RECTAL NOW ONE Stop: 10/06/20 22:18 Last Admin: 10/06/20 23:16 Dose: 650 mg Documented by: Aspirin (Halfprin) 81 mg PO DAILY [facility] Last Admin: 10/06/20 09:55 Dose: 81 mg Documented by: Azithromycin (Zithromax) 500 mg PO DAILY [facility] Stop: 10/08/20 09:01 Last Admin: 10/06/20 09:57 Dose: 500 mg Documented by: Calcium Carbonate (Calcium Carbonate/Vitamin D 600 Mg-200 Unit) 1 tab PO BID [facility] Last Admin: 10/06/20 21:05 Dose: Not Given Documented by: Cholecalciferol (Vitamin D3) 5,000 unit PO DAILY [facility] Last Admin: 10/06/20 09:55 Dose: 5,000 unit Documented by: Dexamethasone (Dexamethasone) 6 mg PO ONETIME STA Stop: 10/06/20 02:22 Last Admin: 10/06/20 02:49 Dose: 6 mg Documented by: Dexamethasone (Dexamethasone) 6 mg PO Q24H [facility] Stop: 10/15/20 06:01 Docusate Sodium (Colace) 100 mg PO BID PRN PRN Reason: Constipation Enoxaparin Sodium (Lovenox) 30 mg SUBCUT ONETIME ONE Stop: 10/06/20 08:01 Last Admin: 10/06/20 13:49 Dose: Not Given Documented by: Famotidine (Pepcid) 20 mg PO DAILY [facility] Last Admin: 10/06/20 09:55 Dose: 20 mg Documented by: Furosemide (Lasix) 60 mg PO DAILY [facility] Last Admin: 10/06/20 09:56 Dose: 60 mg Documented by: Furosemide (Lasix) 40 mg IVPUSH NOW ONE Stop: 10/06/20 13:37 Last Admin: 10/06/20 13:52 Dose: 40 mg Documented by: Guaifenesin/Phenylephrine HCl (Robitussin Dm) 10 ml PO Q4H PRN PRN Reason: Cough Last Admin: 10/06/20 09:58 Dose: 10 ml Documented by: Sodium Chloride (Normal Saline) 1,000 mls @ 100 mls/hr IV ASDIRECTED [facility] Last Admin: 10/06/20 02:49 Dose: 100 mls/hr Documented by: Sodium Chloride (Normal Saline) 100 mls @ 60 mls/hr IV ASDIRECTED [facility] Last Admin: 10/06/20 02:21 Dose: 60 mls/hr Documented by: Remdesivir 200 mg/ Sodium (Chloride) 250 mls @ 250 mls/hr IV ONETIME ONE Stop: 10/06/20 02:24 Last Admin: 10/06/20 02:49 Dose: 250 mls/hr Documented by: Magnesium Sulfate (Magnesium Sulfate In Water Premix) 2 gm in 50 mls @ 25 mls/hr IV ONETIME ONE Stop: 10/06/20 06:40 Last Admin: 10/06/20 05:57 Dose: 25 mls/hr Documented by: Ceftriaxone Sodium 2 gm/ (Sodium Chloride) 100 mls @ 200 mls/hr IV Q24H [facility] Stop: 10/10/20 09:29 Last Admin: 10/06/20 09:57 Dose: 200 mls/hr Documented by: Piperacillin Sod/Tazobactam (Sod 4.5 gm/ Sodium Chloride) 100 mls @ 200 mls/hr IV ONETIME ONE Stop: 10/06/20 14:29 Last Admin: 10/06/20 14:04 Dose: 200 mls/hr Documented by: Iopamidol (Isovue-370 (76%)) 50 ml IVPUSH ONETIME ONE Stop: 10/06/20 01:48 Last Admin: 10/06/20 02:21 Dose: 50 ml Documented by: Levothyroxine Sodium (Levothyroxine) 75 mcg PO [facility] Levothyroxine Sodium (Synthroid) 50 mcg [facility] Last Admin: 10/06/20 13:50 Dose: Not Given Documented by: Lorazepam (Ativan) 0.5 mg IVPUSH ONETIME ONE Stop: 10/06/20 13:42 Last Admin: 10/06/20 14:57 Dose: Not Given Documented by: Montelukast Sodium (Singulair) 10 mg PO DAILY [facility] Last Admin: 10/06/20 09:56 Dose: 10 mg Documented by: Ondansetron HCl (Zofran) 4 mg IV Q6H PRN PRN Reason: Nausea/Vomiting Oxybutynin Chloride (Oxybutynin) 5 mg PO DAILY [facility] Last Admin: 10/06/20 09:57 Dose: 5 mg Documented by: Potassium Chloride (Klor-Con M20) 20 meq PO BID [facility] Last Admin: 10/06/20 21:06 Dose: Not Given Documented by: Simvastatin (Zocor) 5 mg PO BEDTIME [facility] Last Admin: 10/06/20 21:06 Dose: Not Given Documented by: Tramadol HCl (Ultram) 50 mg PO Q6H PRN PRN Reason: Pain Zinc Sulfate (Zincate) 220 mg PO DAILY [facility] Last Admin: 10/06/20 09:57 Dose: 220 mg Documented by: - Exam Quality Assessment: Supplemental Oxygen (BiPAP ), Urine Catheter, DVT Prophylaxis General: Alert, Oriented, Cooperative, No Acute Distress HEENT: Pupils Equal, Pupils Reactive, Mucous Membr. Moist/[place] Neck: Supple, Trachea Midline Lungs: Decreased Breath Sounds (especially right side), Rhonchi. No: Normal Respiratory Effort, Wheezing Cardiovascular: Regular Rate, Regular Rhythm GI/Abdominal Exam: Normal Bowel Sounds, Soft, Non-Tender, No Distention (Female) Exam: Deferred Extremities: Normal Inspection, Normal Range of Motion, Non-Tender, Normal Capillary Refill, Pedal Edema Skin: Warm, Dry, Intact Neurological: No New Focal Deficit Psy/Mental Status: Alert Sepsis Event Note - Evaluation Sepsis Screening Result: No Definite Risk - Focused Exam Vital Signs: Vital Signs Temp Pulse Resp BP Pulse Ox Pulse Ox 10/07/20 06:39 98.1 F 10/07/20 06:27 88 L 10/07/20 05:04 98 10/07/20 05:03 98 10/07/20 04:00 72 24 H 117/69 97 10/07/20 03:00 71 20 125/80 97 10/07/20 01:51 75 18 120/79 91 L 10/07/20 00:12 97.9 F 77 17 141/92 H 90 L 10/06/20 23:58 91 L 10/06/20 20:32 97.2 F 76 21 H 137/82 96 10/06/20 20:17 94 L - Problem List & Annotations (1) GERD (gastroesophageal reflux disease) SNOMED Code(s): 863747664 Code(s): K21.9 - GASTRO-ESOPHAGEAL REFLUX DISEASE WITHOUT ESOPHAGITIS Status: Chronic Priority: Low Current Visit: No Qualifiers: Esophagitis presence: esophagitis presence not specified Qualified Code(s): K21.9 - Gastro-esophageal reflux disease without esophagitis (2) S/P thyroidectomy SNOMED Code(s): 867286447, 20550199, 358445524 Code(s): E89.0 - POSTPROCEDURAL HYPOTHYROIDISM Status: Chronic Priority: Low Current Visit: No (3) HTN (hypertension) SNOMED Code(s): 23560044 Code(s): I10 - ESSENTIAL (PRIMARY) HYPERTENSION Status: Chronic Priority: Medium Current Visit: No Qualifiers: Hypertension type: unspecified Qualified Code(s): I10 - Essential (primary) hypertension (4) COVID-19 SNOMED Code(s): 123445260 Code(s): U07.1 - COVID-19 Status: Acute Priority: High Current Visit: Yes (5) Hypoxemia SNOMED Code(s): 547377045 Code(s): R09.02 - HYPOXEMIA Status: Acute Priority: High Current Visit: Yes (6) CHF (congestive heart failure) SNOMED Code(s): 09792786 Code(s): I50.9 - HEART FAILURE, UNSPECIFIED Status: Chronic Priority: Low Current Visit: No (7) Hypomagnesemia SNOMED Code(s): 444311723 Code(s): E83.42 - HYPOMAGNESEMIA Status: Acute Priority: High Current Visit: Yes (8) Aspiration into airway SNOMED Code(s): 616834981 Code(s): T17.908A - UNSP FB IN RESP TRACT, PART UNSP CAUSING OTH INJURY, INIT Status: Acute Priority: High Current Visit: Yes Qualifiers: Encounter type: initial encounter Qualified Code(s): T17.908A - Unspecified foreign body in respiratory tract, part unspecified causing other injury, initial encounter (9) Acute respiratory failure SNOMED Code(s): 77022812 Code(s): J96.00 - ACUTE RESPIRATORY FAILURE, UNSP W HYPOXIA OR HYPERCAPNIA Status: Acute Priority: High Current Visit: Yes Qualifiers: Respiratory failure complication: hypoxia Qualified Code(s): J96.01 - Acute respiratory failure with hypoxia (10) Hypokalemia SNOMED Code(s): 87362163 Code(s): E87.6 - HYPOKALEMIA Status: Acute Priority: High Current Visi t: Yes - Problem List Review Problem List Initiated/Reviewed/Updated: Yes - My Orders Last 24 Hours: My Active Orders 10/06/20 07:41 Positioning, Patient [RC] .PRN Isolation [COMM] Stat 10/06/20 07:44 RT Aerosol Therapy [RC] ASDIRECTED 10/06/20 07:46 Height and Weight [RC] 04 Intake and Output [RC] Q2HR Pulse Oximetry [RC] CONTINUOUS Up With Assistance [RC] QSHIFT VTE/DVT Education [RC] PER UNIT ROUTINE Vital Signs [RC] Q4HR Consult to Case Management/[employer] [CONS] Routine Consult to Spiritual Care [CONS] Routine OT Evaluation and Treatment [CONS] Routine PT Evaluation and Treatment [CONS] Routine Respiratory Care Assess and Treatment [CONS] Routine 10/06/20 07:48 Albuterol [Proventil HFA] See Dose Instructions INH Q4H PRN 10/06/20 07:49 RT Post Treatment Assessment [RC] Click to Edit RT Pre-Treatment Assessment [RC] Click to Edit 10/06/20 07:50 Acapella [RT Chest Physiotherapy] [RC] ASDIRECTED RT Incentive Spirometry [RC] ASDIRECTED 10/06/20 07:53 Carboxymethylcellulose Sodium [Refresh Liquigel 1%] 0 ml EYEBOTH Q4H PRN 10/06/20 08:21 Pulse Oximetry Continuous Monitoring [OM.PC] Routine 10/06/20 09:00 Budesonide [Pulmicort] 0.5 mg INH BID Enoxaparin [Lovenox] 30 mg SUBCUT DAILY 10/06/20 13:36 BIPAP Adult [RT BiPAP/CPAP] [RC] ASDIRECTED 10/06/20 13:56 Patient Status [ADT] Routine 10/06/20 14:04 Code Status [Resuscitation Status] Routine 10/06/20 14:37 Urinary Catheter Assessment [RC] Q4HR 10/06/20 14:45 Insert Gerard Catheter [Insert Urinary Catheter] [OM.PC] Q24H 10/06/20 Dinner NPO Now [Nothing per Oral Now Diet] [DIET] 10/06/20 22:00 Piperacillin/Tazobactam [Piperacil-Tazobact] 4.5 gm Sodium Chloride 0.9% [Normal Saline] 100 ml IV Q8H 10/07/20 03:00 Remdesivir 100 mg Sodium Chloride 0.9% [Normal Saline] 100 ml IV Q24H 10/07/20 07:00 CBC WITH AUTO DIFF [HEME] AM CMP [COMPREHENSIVE METABOLIC PN,CMP] [CHEM] AM CRP [C-REACTIVE PROTEIN] [CHEM] AM DD [D-DIMER QUANTITATIVE] [COAG] Q48H MAGNESIUM [CHEM] AM PHOSPHORUS [CHEM] AM 10/07/20 07:19 Acetaminophen [Tylenol] 650 mg RECTAL Q6H PRN 10/07/20 07:30 Dextrose 5%-Lactated Ringers 1,000 ml IV ASDIRECTED 10/07/20 08:00 Chest 1V Frontal [CR] Routine 10/07/20 09:00 Furosemide [Lasix] 40 mg IVPUSH DAILY dexAMETHasone [Decadron] 6 mg IVPUSH DAILY 10/08/20 05:11 CBC WITH AUTO DIFF [HEME] AM CMP [COMPREHENSIVE METABOLIC PN,CMP] [CHEM] AM CRP [C-REACTIVE PROTEIN] [CHEM] AM MAGNESIUM [CHEM] AM 10/09/20 05:11 CBC WITH AUTO DIFF [HEME] AM CMP [COMPREHENSIVE METABOLIC PN,CMP] [CHEM] AM CRP [C-REACTIVE PROTEIN] [CHEM] AM DD [D-DIMER QUANTITATIVE] [COAG] Q48H MAGNESIUM [CHEM] AM 10/10/20 05:11 CBC WITH AUTO DIFF [HEME] AM CMP [COMPREHENSIVE METABOLIC PN,CMP] [CHEM] AM CRP [C-REACTIVE PROTEIN] [CHEM] AM MAGNESIUM [CHEM] AM 10/11/20 05:11 DD [D-DIMER QUANTITATIVE] [COAG] Q48H - Assessment Assessment:: Assessment - Day of admission - 10/06/2020 * 85 Yo female presents to ED via [facility] with hypoxia and "low grade" fever * Received COVID-19 vaccine on 10/03/2020 (first dose) * Reportedly 92% saturations aon 3L with baseline home oxygen use of 2L. * Known exposure to COVID-19 as 2 staff were reportedly sick * Reports cough that is chronic. Denies fever, chills, CP, headaches, dyspnea, or other complaints * Hx/o CHF, HTN, GERD, Arthritis, Osteoporosis, Basal cell carcinoma of nose, Thyroid ca s/p excision, macular degeneration * 12-lead EKG in ED shows Sinus rhythm at 79 BPM with enlarged P-waves, RBBB, LPFB, and no change from 02/01/2017 * Labs in ED * WBC 9.43 * Hgb 10.7 * Plt 141 * Neutrophils 91% * Band Neutrophils 2% * INR 1.01 * D-Dimer 0.73 * Lactic acid 1.1 * Pro-BNP 1741 * Sodium 140 * Potassium 3.8 * Carbon Dioxide 31 * Anion gap 11.8 * BUN 22, Creatinine 1.1, GFR 47 * Glucose 142 * Magnesium 1.7 * Bilirubin 1.0 * AST 25, ALT 15, Alk Phos 65 * Troponin >0.017 * Albumin 2.9 * Influenza A/B - negative * SARS-CoV-2 RNA - Positive * ABG in ED: Left brachial, pH 7.46, PCO2 43.4, PO2 of 60, HCO3 of 30.7, O2 saturation 93.3, base excess 6.6, A-a gradient 129, Obtained on 3.5 L NC * CXR in ED shows possible infiltrate in inferior aspect of right upper lobe and other chronic findings * CT angiogram of the chest: * 1. No evidence for acute pulmonary embolic disease * 2. Enlarged central pulmonary arteries suggest pulmonary artery hypertension * 3. Extensive bilateral pulmonary opacities suspect viral/atypical pneumonia * 4. Elevated left hemidiaphragm. * 5. Ectatic ascending thoracic aorta. Stable ascending thoracic aorta pseudoaneurysm. * Started on 6mg dexamethasone and 200mg Remdisivir * Admitted to hospital inpatient with telemetry. 10/07/2020 * Episode of aspiration yesterday - patient started on BiPAP and moved to ICU * Confirmed with family on 10/06/20 that patient is DNR/DNI * ABX changed to Zosyn and Vancomycin * Nursing notes patient saturations drop into 60's with activity or when removing BiPAP * Gerard placed for I&O monitoring * Repeat CXRs yesterday and today show progressive worsening of infiltrate * Continue dexamethasone IV and remdisivir * Labs: * WBC 7.24 * Platelet 161 * Absolute neutrophil 6.13 * D-dimer 1.27 * Sodium 148 * Potassium 3.3 * BUN 26, creatinine 0.9, GFR 59 * Magnesium 2.0 * Phosphorus 3.5 * CRP 23.8 * Albumin 2.5 * MRSA screen negative * Procalcitonin (from 10/06/20) returns 0.38 * Discontinue PT/OT for now - Plan Plan:: COVID-19 Hypoxemia Aspiration into airway Acute respiratory failure * O2 as needed with saturation goal of 88-94% * BiPAP * Continue dexamethasone - Day 11/05 * Continue Remdesivir day 10/31 * PRN albuterol * Home respiratory meds * IS/Acapella * RT consultation * Telemetry/continuous pulse oximeter * CM/SW consultation * Airborne/contact isolation * Daily labs as ordered * Q48hr D-Dimer * Daily Lovenox and monitor D-Dimer * Caution with IV fluids * Blood cultures negative thus far * Continue Zosyn * NPO * All med changed to IV/Rectal * Hold PT/OT for now * Aspiration precautions Hypomagnesemia, Resolved Hypokalemia * Supplement * Follow labs GERD (gastroesophageal reflux disease) Macular degeneration S/P thyroidectomy HTN (hypertension) CHF (congestive heart failure) * Home medications as ordered * All medications changed to IV/Rectal Code status: Full Code PCP: Ilsa Bingham PA-C DVT prophylaxis: Lovenox Social: Patient resides at [facility] Disposition: Patient admitted for treatment of COVID-19, hypoxia. LOS >96 Hrs for treatment. <Trip Currie T - Last Filed: 10/07/20 12:08> - Patient Data Vitals - Most Recent: Last Vital Signs Temp 36.7 C 10/07/20 06:39 Pulse 87 10/07/20 08:00 Resp 22 H 10/07/20 08:00 BP 150/92 H 10/07/20 08:00 Pulse Ox 91 L 10/07/20 08:21 I&O - Last 24 Hours: Intake & Output 10/06/20 10/07/20 10/07/20 22:59 06:59 14:59 Intake Total 190 191 Output Total 1500 440 350 Balance -1310 -249 -350 Lab Results Last 24 Hours: Laboratory Results - last 24 hr 10/05/20 10/07/20 10/07/20 Range/Units 23:45 07:00 07:00 WBC 7.24 (3.98-10.04) K/mm3 RBC 4.00 (3.98-5.22) M/mm3 Hgb 11.4 (11.2-15.7) gm/dl Hct 37.6 (34.1-44.9) % MCV 94.0 (79.4-94.8) fl MCH 28.5 (25.6-32.2) pg MCHC 30.3 L (32.2-35.5) g/dl RDW Std Deviation 50.4 H (36.4-46.3) fL Plt Count 161 L (182-369) K/mm3 MPV 11.8 (9.4-12.3) fl Neut % (Auto) 84.8 H (34.0-71.1) % Lymph % (Auto) 7.7 L (19.3-51.7) % [place] % (Auto) 7.3 (4.7-12.5) % Eos % (Auto) 0 L (0.7-5.8) Baso % (Auto) 0.1 (0.1-1.2) % Neut # (Auto) 6.13 (1.56-6.13) K/mm3 Lymph # (Auto) 0.56 L (1.18-3.74) K/mm3 [place] # (Auto) 0.53 H (0.24-0.36) K/mm3 Eos # (Auto) 0.00 L (0.04-0.36) K/mm3 Baso # (Auto) 0.01 (0.01-0.08) K/mm3 Manual Slide Review Normal smear D-Dimer, Quantitative 1.27 H (0.19-0.50) mg/L Sodium (136-145) mEq/L Potassium (3.5-5.1) mEq/L Chloride (98-107) mEq/L Carbon Dioxide (21-32) mEq/L Anion Gap (5-15) BUN (7-18) mg/dL Creatinine (0.55-1.02) mg/dL Est Cr Clr Drug Dosing mL/min Estimated GFR (MDRD) (>60) mL/min BUN/Creatinine Ratio (14-18) Glucose (83-115) mg/dL Calcium (8.5-10.1) mg/dL Phosphorus (2.6-4.7) mg/dL Magnesium (1.8-2.4) mg/dl Total Bilirubin (0.2-1.0) mg/dL AST (15-37) U/L ALT (14-59) U/L Alkaline Phosphatase (46-116) U/L C-Reactive Protein (<1.0) mg/dL Total Protein (6.4-8.2) g/dl Albumin (3.4-5.0) g/dl Globulin gm/dL Albumin/Globulin Ratio (1-2) Procalcitonin 0.38 H ng/mL 10/07/20 Range/Units 07:00 WBC (3.98-10.04) K/mm3 RBC (3.98-5.22) M/mm3 Hgb (11.2-15.7) gm/dl Hct (34.1-44.9) % MCV (79.4-94.8) fl MCH (25.6-32.2) pg MCHC (32.2-35.5) g/dl RDW Std Deviation (36.4-46.3) fL Plt Count (182-369) K/mm3 MPV (9.4-12.3) fl Neut % (Auto) (34.0-71.1) % Lymph % (Auto) (19.3-51.7) % [place] % (Auto) (4.7-12.5) % Eos % (Auto) (0.7-5.8) Baso % (Auto) (0.1-1.2) % Neut # (Auto) (1.56-6.13) K/mm3 Lymph # (Auto) (1.18-3.74) K/mm3 [place] # (Auto) (0.24-0.36) K/mm3 Eos # (Auto) (0.04-0.36) K/mm3 Baso # (Auto) (0.01-0.08) K/mm3 Manual Slide Review D-Dimer, Quantitative (0.19-0.50) mg/L Sodium 148 H (136-145) mEq/L Potassium 3.3 L (3.5-5.1) mEq/L Chloride 105 (98-107) mEq/L Carbon Dioxide 33 H (21-32) mEq/L Anion Gap 13.3 (5-15) BUN 26 H (7-18) mg/dL Creatinine 0.9 (0.55-1.02) mg/dL Est Cr Clr Drug Dosing 31.63 mL/min Estimated GFR (MDRD) 59 (>60) mL/min BUN/Creatinine Ratio 28.9 H (14-18) Glucose 101 (83-115) mg/dL Calcium 8.8 (8.5-10.1) mg/dL Phosphorus 3.5 (2.6-4.7) mg/dL Magnesium 2.0 (1.8-2.4) mg/dl Total Bilirubin 0.6 (0.2-1.0) mg/dL AST 42 H (15-37) U/L ALT 28 (14-59) U/L Alkaline Phosphatase 68 (46-116) U/L C-Reactive Protein 23.8 H* (<1.0) mg/dL Total Protein 7.1 (6.4-8.2) g/dl Albumin 2.5 L (3.4-5.0) g/dl Globulin 4.6 gm/dL Albumin/Globulin Ratio 0.5 L (1-2) Procalcitonin ng/mL Rashawn Results Last 24 Hours: Microbiology 10/06/20 00:23 Aerobic Blood Culture - Preliminary Blood - Venous - Lab Draw NO GROWTH AFTER 1 DAY Anaerobic Blood Culture - Preliminary NO GROWTH AFTER 1 DAY 10/06/20 00:15 Aerobic Blood Culture - Preliminary Blood - Venous NO GROWTH AFTER 1 DAY Anaerobic Blood Culture - Preliminary NO GROWTH AFTER 1 DAY Med Orders - Current: Current Medications Acetaminophen (Tylenol) 650 mg RECTAL Q6H PRN PRN Reason: Fever Greater Than 101 Albuterol (Proventil Hfa) 0 gm INH Q4H PRN PRN Reason: SOB/Wheezing Artificial Tears (Refresh Liquigel 1%) 0 ml EYEBOTH Q4H PRN PRN Reason: Dry Eyes Budesonide (Pulmicort) 0.5 mg INH BID [facility] Last Admin: 10/07/20 08:21 Dose: 0.5 mg Documented by: Dexamethasone (Decadron) 6 mg IVPUSH DAILY [facility] Stop: 10/15/20 09:01 Last Admin: 10/07/20 08:45 Dose: 6 mg Documented by: Enoxaparin Sodium (Lovenox) 30 mg SUBCUT DAILY [facility] Last Admin: 10/07/20 08:50 Dose: 30 mg Documented by: Furosemide (Lasix) 40 mg IVPUSH DAILY [facility] Last Admin: 10/07/20 08:48 Dose: 40 mg Documented by: Remdesivir 100 mg/ Sodium (Chloride) 100 mls @ 100 mls/hr IV Q24H [facility] Stop: 10/10/20 03:59 Last Admin: 10/07/20 03:21 Dose: 100 mls/hr Documented by: Piperacillin Sod/Tazobactam (Sod 4.5 gm/ Sodium Chloride) 100 mls @ 25 mls/hr IV Q8H [facility] Last Admin: 10/07/20 09:48 Dose: 25 mls/hr Documented by: Potassium Chloride 10 meq/ (Premix) 100 mls @ 100 mls/hr IV Q1H [facility] Stop: 10/07/20 12:29 Last Admin: 10/07/20 11:08 Dose: 100 mls/hr Documented by: Dextrose/Lactated Ringer's (Dextrose 5%-Lactated Ringers) 1,000 mls @ 30 mls/hr IV ASDIRECTED [facility] Last Admin: 10/07/20 08:55 Dose: 30 mls/hr Documented by: Morphine Sulfate (Morphine) 1 mg IVPUSH Q2H PRN PRN Reason: Pain Last Admin: 10/07/20 11:59 Dose: 1 mg Documented by: Discontinued Medications Acetaminophen (Tylenol) 650 mg PO Q4H PRN PRN Reason: Fever Greater Than 101 Acetaminophen (Tylenol) 650 mg RECTAL NOW ONE Stop: 10/06/20 22:18 Last Admin: 10/06/20 23:16 Dose: 650 mg Documented by: Aspirin (Halfprin) 81 mg PO DAILY [facility] Last Admin: 10/06/20 09:55 Dose: 81 mg Documented by: Azithromycin (Zithromax) 500 mg PO DAILY [facility] Stop: 10/08/20 09:01 Last Admin: 10/06/20 09:57 Dose: 500 mg Documented by: Calcium Carbonate (Calcium Carbonate/Vitamin D 600 Mg-200 Unit) 1 tab PO BID [facility] Last Admin: 10/06/20 21:05 Dose: Not Given Documented by: Cholecalciferol (Vitamin D3) 5,000 unit PO DAILY [facility] Last Admin: 10/06/20 09:55 Dose: 5,000 unit Documented by: Dexamethasone (Dexamethasone) 6 mg PO ONETIME [facility] Stop: 10/06/20 02:22 Last Admin: 10/06/20 02:49 Dose: 6 mg Documented by: Dexamethasone (Dexamethasone) 6 mg PO Q24H [facility] Stop: 10/15/20 06:01 Docusate Sodium (Colace) 100 mg PO BID PRN PRN Reason: Constipation Enoxaparin Sodium (Lovenox) 30 mg SUBCUT ONETIME ONE Stop: 10/06/20 08:01 Last Admin: 10/06/20 13:49 Dose: Not Given Documented by: Famotidine (Pepcid) 20 mg PO DAILY [facility] Last Admin: 10/06/20 09:55 Dose: 20 mg Documented by: Furosemide (Lasix) 60 mg PO DAILY [facility] Last Admin: 10/06/20 09:56 Dose: 60 mg Documented by: Furosemide (Lasix) 40 mg IVPUSH NOW ONE Stop: 10/06/20 13:37 Last Admin: 10/06/20 13:52 Dose: 40 mg Documented by: Guaifenesin/Phenylephrine HCl (Robitussin Dm) 10 ml PO Q4H PRN PRN Reason: Cough Last Admin: 10/06/20 09:58 Dose: 10 ml Documented by: Sodium Chloride (Normal Saline) 1,000 mls @ 100 mls/hr IV ASDIRECTED [facility] Last Admin: 10/06/20 02:49 Dose: 100 mls/hr Documented by: Sodium Chloride (Normal Saline) 100 mls @ 60 mls/hr IV ASDIRECTED [facility] Last Admin: 10/06/20 02:21 Dose: 60 mls/hr Documented by: Remdesivir 200 mg/ Sodium (Chloride) 250 mls @ 250 mls/hr IV ONETIME ONE Stop: 10/06/20 02:24 Last Admin: 10/06/20 02:49 Dose: 250 mls/hr Documented by: Magnesium Sulfate (Magnesium Sulfate In Water Premix) 2 gm in 50 mls @ 25 mls/hr IV ONETIME ONE Stop: 10/06/20 06:40 Last Admin: 10/06/20 05:57 Dose: 25 mls/hr Documented by: Ceftriaxone Sodium 2 gm/ (Sodium Chloride) 100 mls @ 200 mls/hr IV Q24H [facility] Stop: 10/10/20 09:29 Last Admin: 10/06/20 09:57 Dose: 200 mls/hr Documented by: Piperacillin Sod/Tazobactam (Sod 4.5 gm/ Sodium Chloride) 100 mls @ 200 mls/hr IV ONETIME ONE Stop: 10/06/20 14:29 Last Admin: 10/06/20 14:04 Dose: 200 mls/hr Documented by: Dextrose/Lactated Ringer's (Dextrose 5%-Lactated Ringers) 1,000 mls @ 75 mls/hr IV ASDIRECTED [facility] Iopamidol (Isovue-370 (76%)) 50 ml IVPUSH ONETIME ONE Stop: 10/06/20 01:48 Last Admin: 10/06/20 02:21 Dose: 50 ml Documented by: Levothyroxine Sodium (Levothyroxine) 75 mcg PO SUSA [facility] Levothyroxine Sodium (Synthroid) 50 mcg PO MOTUWETHFR [facility] Last Admin: 10/06/20 13:50 Dose: Not Given Documented by: Lorazepam (Ativan) 0.5 mg IVPUSH ONETIME ONE Stop: 10/06/20 13:42 Last Admin: 10/06/20 14:57 Dose: Not Given Documented by: Montelukast Sodium (Singulair) 10 mg PO DAILY [facility] Last Admin: 10/06/20 09:56 Dose: 10 mg Documented by: Ondansetron HCl (Zofran) 4 mg IV Q6H PRN PRN Reason: Nausea/Vomiting Oxybutynin Chloride (Oxybutynin) 5 mg PO DAILY [facility] Last Admin: 10/06/20 09:57 Dose: 5 mg Documented by: Potassium Chloride (Klor-Con M20) 20 meq PO BID [facility] Last Admin: 10/06/20 21:06 Dose: Not Given Documented by: Simvastatin (Zocor) 5 mg PO BEDTIME [facility] Last Admin: 10/06/20 21:06 Dose: Not Given Documented by: Tramadol HCl (Ultram) 50 mg PO Q6H PRN PRN Reason: Pain Zinc Sulfate (Zincate) 220 mg PO DAILY [facility] Last Admin: 10/06/20 09:57 Dose: 220 mg Documented by: Sepsis Event Note - Focused Exam Vital Signs: Vital Signs Temp Pulse Resp BP Pulse Ox Pulse Ox 10/07/20 08:21 91 L 10/07/20 08:00 87 22 H 150/92 H 91 L 10/07/20 07:46 93 L 10/07/20 06:39 36.7 C 10/07/20 06:27 88 L 10/07/20 05:04 98 10/07/20 05:03 98 10/07/20 04:00 72 24 H 117/69 97 10/07/20 03:00 71 20 125/80 97 10/07/20 01:51 75 18 120/79 91 L 10/07/20 00:12 36.6 C 77 17 141/92 H 90 L - Plan Plan:: Patient expressed wishes to be made comfort measures. We will let her family know and rescind code status to DNR/DNI with comfort measures.
[2020-10-07] MEDS ORDERED: Dextrose 5%-Lactated Ringers 1,000 ML IV SCH ×2 (07:30→08:45)
[2020-10-07] MEDS: Budesonide 0.5 MG/2 ML Neb Susp INH SCH (08:21)
[2020-10-07] MEDS: Enoxaparin 30 MG/0.3 ML Syringe SUBCUT SCH (08:50)
[2020-10-07] MEDS: Potassium Chloride 10 MEQ in Premix Bag 1 BAG IV SCH ×4 (08:54→13:05)
[2020-10-07] MEDS ORDERED: Furosemide 40 MG/4 ML VIAL IVPUSH SCH (09:00)
[2020-10-07] MEDS ORDERED: Dexamethasone 10 MG/ML SDV IVPUSH SCH (09:00)
--- NOTE | 2020-10-07 09:01 | CR ---
Chest: Portable view of the chest was obtained. Comparison: Prior chest x-ray of 10/06/20. Areas of increased density are seen within the right mid and lower lung. Findings are slightly worse from prior study. There is blunting of the lateral costophrenic angles which appears to be chronic. Heart size and mediastinum are stable. Previous sternotomy is noted. Degenerative change is noted within both shoulders. Impression: 1. Slight increasing density within the right mid and lower lung. Findings presumably represent slight worsening pneumonia from prior exam 2. Other findings as noted above which are stable. Diagnostic code #3
[2020-10-07] MEDS: Piperacillin/Tazobactam 4.5 GM in Sodium Chloride 0.9% 100 ML IV SCH ×2 (09:48→18:55)
[2020-10-07] MEDS ORDERED: Morphine 2 MG/ML SYRINGE IVPUSH PRN ×2 (11:15→15:41)
[2020-10-07] MEDS: Levothyroxine 50 MCG Tab PO SCH (14:38)
[2020-10-07] MEDS ORDERED: Scopolamine 1.5 MG Transdermal Patch TRDERM PRN (15:41)
[2020-10-07] MEDS ORDERED: LORazepam 2 MG/ML SDV IVPUSH PRN (15:41)
[2020-10-07] MEDS ORDERED: Atropine 1% Ophth Soln 5 ML BOTTLE SL PRN (15:42)
--- NOTE | 2020-10-07 15:53 | PCM.SN.2 ---
- Free Text/Narrative Note: Notified by nursing that the patient is now adamantly refusing her BiPAP mask. We did discuss this with the patient and she reports that she would like her BiPAP mask off. We had a lengthy conversation with the patient how this would likely lead to and the patient wishes to be made comfort care and all treatment stopped. Nursing facilitated a FaceTime session with the patient's family and they asked multiple times the patient's wishes. This included the patient's power of admitted attorneys Garima. Patient is A&O x3. Throughout this meeting patient multiple times said that she is done and that she would like to . Discussed this with the patient's power of admitted attorneys Garima and another sister who is present on speaker phone. They relay that they support their mother and what ever decision she makes with her health. They are aware that this will likely lead to and they are okay with that. Went back in to discuss plan of care with the patient. She again relates that she wants the mask off and that she is okay with dying. She expressly states that she wants all treatment to stop, including treatment for her aspiration pneumonia and COVID-19. She again is made aware that this will likely result in her and she is okay with this. Family would like to come up and see the patient. They are made aware that they can visit the patient however it is recommended that they quarantine for 14 days after exposure. We will move the patient to a [facility] room with a window so family can at the very least see her. Patient agrees to leave BiPAP mask in place until family arrives. Orders placed for as needed morphine, Ativan, scopolamine patch, and atropine. Comfort measures order placed and all treatment is discontinued. Spiritual care is aware of patient's wishes. Will change the patient to a regular diet so she can eat if she wishes. Both family and patient are aware of how quickly patient saturations drop when off of BiPAP, as nursing noted she went into the 70s with just a brief pause and BiPAP. Nursing updated on patient's plan of care.
[2020-10-07 16:13] VITALS: BP 128/78; PULSE 74
--- NOTE | 2020-10-08 07:23 | PCM.DCSUM1 ---
Discharge Summary - Hospital Course HPI Initial Comments: This is an 85-year-old female who resides at [facility] and presents to ED on 10/05/2020 very late at night via EMS. Ambulance was reportedly called due to hypoxia. Patient usually wears 2 L of oxygen at home however she was reportedly requiring 3 L and only able to maintain 92%. This was accompanied by a cough and a low-grade temp however the patient states her cough is chronic and she denies any fever, chills, chest pain, or chest disc omfort. Patient reports she had her first dose of the COVID-19 vaccine on 10/03/2020. It is reported that 2 staff members were positive recently and she had contact with them. In the ED she was 84% on 2 L of oxygen via nasal cannula and went up to 90% on 3-1/2 L of oxygen via nasal cannula. Temp was 37.1. Pulse 80. Respirations 18. Blood pressure 129/79. Twelve-lead EKG is obtained showing a sinus rhythm at 79 bpm with extreme axis deviation, enlarged P waves suggesting LAE, right bundle branch block with LPFB. No change from 02/01/2017. Labs were obtained showing a WBC of 9.43. Hemoglobin is 10.7. Hematocrit 35.5. Platelets are low at 141,000. Neutrophils are elevated at 91%. There is 2% bandemia noted. INR is 1.01. D-dimer 0.73. Sodium 140. Potassium 3.8. Chloride 101. Carbon dioxide 31. Anion gap 11.8. BUN is 22. Creatinine is 1.1. GFR is 47. Glucose is 142. Calcium 9.3. Magnesium low at 1.7. Bilirubin 1.0. AST is 25, ALT 15, alkaline phosphatase 65. Troponin is less than 0.017. Protein 7.3. Albumin 2.9. ABGs obtained in the left brachial with a pH of 7.46. PCO2 of 43.4. PO2 of 60.0. HCO3 is 30.7. O2 saturation is 93.3. Base excess is 6.6. AA gradient is 128. This is obtained while on a nasal cannula 3.5 L. Lactic acid is 1.1. proBNP 1741. Influenza a and B are both negative however patient is positive for SARS-CoV-2 RNA. She is given 6 mg p.o. dexamethasone and a 200 mg loading dose of remdesivir. CT angiogram is obtained interpreted by [facility] as: "1. No evidence for acute pulmonary embolic disease. 2. Enlarged central p ulmonary arteries suggesting pulmonary artery hypertension. 3. Extensive bilateral pulmonary opacities suggest viral/atypical pneumonia. 4. Elevated left hemidiaphragm. 5. Ectatic ascending thoracic aorta. Stable ascending thoracic aorta pseudoaneurysm. Dust x-rays obtained with radiologist read pending. Possible infiltrate in inferior aspect of the right upper lobe is noted along with many other nonacute findings. She carries a history of heart failure, hypertension, GERD, arthritis, osteoporosis, scoliosis, basal 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, thyroid cancer status post excision. She was never a smoker. She is a DNR. Her PCP is Ilsa Bingham PA-C. Diagnosis: Stroke: No - Discharge Data Discharge Date: 10/07/20 (Admit date: 10/05/20) Discharge Disposition: 20 Condition: - Referral to Home Health Primary Care Physician: PCP None - Discharge Diagnosis/Problem(s) (1) GERD (gastroesophageal reflux disease) SNOMED Code(s): 533537314 ICD Code: K21.9 - GASTRO-ESOPHAGEAL REFLUX DISEASE WITHOUT ESOPHAGITIS Status: Chronic Priority: Low Qualifiers: Esophagitis presence: esophagitis presence not specified Qualified Code(s): K21.9 - Gastro-esophageal reflux disease without esophagitis (2) S/P thyroidectomy SNOMED Code(s): 266860308, 46401425, 275657273 ICD Code: E89.0 - POSTPROCEDURAL HYPOTHYROIDISM Status: Chronic Priority: Low (3) HTN (hypertension) SNOMED Code(s): 13678318 ICD Code: I10 - ESSENTIAL (PRIMARY) HYPERTENSION Status: Chronic Priority: Medium Qualifiers: Hypertension type: unspecified Qualified Code(s): I10 - Essential (primary) hypertension (4) COVID-19 SNOMED Code(s): 633902987 ICD Code: U07.1 - COVID-19 Status: Acute Priority: High (5) Hypoxemia SNOMED Code(s): 815184865 ICD Code: R09.02 - HYPOXEMIA Status: Acute Priority: High (6) CHF (congestive heart failure) SNOMED Code(s): 26992753 ICD Code: I50.9 - HEART FAILURE, UNSPECIFIED Status: Chronic Priority: Low (7) Hypomagnesemia SNOMED Code(s): 003085771 ICD Code: E83.42 - HYPOMAGNESEMIA Status: Acute Priority: High (8) Aspiration into airway SNOMED Code(s): 599585479 ICD Code: T17.908A - UNSP FB IN RESP TRACT, PART UNSP CAUSING OTH INJURY, INIT Status: Acute Priority: High Qualifiers: Encounter type: initial encounter Qualified Code(s): T17.908A - Unspecified foreign body in respiratory tract, part unspecified causing other injury, initial encounter (9) Acute respiratory failure SNOMED Code(s): 01953116 ICD Code: J96.00 - ACUTE RESPIRATORY FAILURE, UNSP W HYPOXIA OR HYPERCAPNIA Status: Acute Priority: High Qualifiers: Respiratory failure complication: hypoxia Qualified Code(s): J96.01 - Acute respiratory failure with hypoxia (10) Hypokalemia SNOMED Code(s): 14935509 ICD Code: E87.6 - HYPOKALEMIA Status: Acute Priority: High - Patient Summary/Data Consults: Consultations 10/06/20 07:46 Consult to Spiritual Care [CONS] Routine Hospital Course: Maria Del Rosario was admitted to the hospital floor for COVID-19 treatment. On admission she was quite stable requiring 3 L of oxygen. Patient is baseline on 2 L. She was started on p.o. dexamethasone and remdesivir. Patient was started on azithromycin and Rocephin due to questionable pneumonia. Magnesium and potassium were supplemented. Unfortunately on the floor patient had a desaturation episode and was started on high flow oxygen. Patient rebounded quite quickly and saturations improved. She then had a second episode of desaturation while eating and appeared to have aspirated. RT reported sucking a green substance from the patient while suctioning. Saturations quickly dropped into the 70s and patient was placed on BiPAP. She is moved to the ICU and started on Zosyn. Patient was somewhat [id number] on whether or not she wanted to be intubated and ultimately decided against it. Family, including the patient's POA Garima, were contacted and all agreed that the patient should be DNR/DNI. Repeat chest x-ray showed a worsening infiltrate and nursing noted that the patient would now drop into the 60s with activity or when removing BiPAP. While in the ICU patient was noted to tell multiple staff members that she was done and requested that her BiPAP mask be removed. Multiple discussions were had with the patient to ensure that she understood the ramifications of removing her BiPAP mask and that she would likely . Patient was A&O x3. She stated that she was concerned with how her health would be if she recovered from this and stated that she had been having health issues more and more. She was adamant about removing BiPAP. Family, including the patient's daughter Garima, who is the power of managing attorney held a FaceTime meeting with the patient and the patient confirmed that she does indeed want the BiPAP discontinued and wants treatment to stop. Multiple meetings held between provider and family and they agreed to honor patient's wishes. They stated that they are relieved that the patient is able to make her own decisions and they are happy that she is alert and competent. Discussed further plan of care with patient and she requests that all treatment be stopped including treatment for her aspiration pneumonia and Covid. She is again aware that this would lead to her and confirmed to be A&Ox3. Patient is therefore made comfort care and all lab draws, COVID-19 and aspiration pneumonia treatment, PT/OT, BiPAP, and other treatment is stopped. Patient is made a regular diet as she had been n.p.o. due to her aspiration and requiring continuous BiPAP. Family asked if they can see patient and were warned that patient is Covid positive, however given that the patient is now comfort care this is allowed. They were warned that it is recommended that they quarantine for 14 days after seeing patient. Patient is moved to a room with an exterior window and BiPAP is removed with family present. Patient at 2015. This is confirmed by 2 nurses. Patient's body transferred to [facility]. - Discharge Plan *PRESCRIPTION DRUG MONITORING PROGRAM REVIEWED*: Not Applicable *COPY OF PRESCRIPTION DRUG MONITORING REPORT IN PATIENT TEJAS: Not Applicable Home Medications: Home Meds Calcium Carbonate/Vitamin D3 [Calcium 500-Vit D3 125 Caplet] 1 each PO BID 09/23/16 [History] Montelukast [Singulair] 10 mg PO DAILY 09/23/16 [History] Omeprazole 20 mg PO DAILY 09/23/16 [History] Vit A/C/E AC/Znox/Cupric Oxide [Eye Vitamin-Minerals Tablet] 1 each PO DAILY 09/23/16 [History] Potassium Chloride 20 meq PO BID #60 tab.er.prt 09/28/16 [Rx] Furosemide [Lasix] 60 mg PO DAILY 12/16/16 [History] Budesonide [Pulmicort] 0.5 mg IH BID 01/13/17 [History] Acetaminophen [Tylenol] 650 mg PO Q4H PRN 02/01/17 [History] Dextromethorphan/guaiFENesin [Robitussin DM] 10 ml PO Q4H PRN 02/01/17 [History] Docusate Sodium 100 mg PO BID PRN 02/01/17 [History] Oxybutynin Chloride 5 mg PO DAILY 02/01/17 [History] Psyllium [Metamucil] 2 tab PO BID 02/01/17 [History] Sodium Chloride [Saline Nasal [place]] 2 spray INH Q2H PRN 02/01/17 [History] traMADol [Ultram] 50 mg PO Q6H PRN 02/01/17 [History] Albuterol [Proventil Neb Soln] 1 dose IH QID PRN 10/05/20 [History] Aspirin [Adult Low Dose Aspirin EC] 81 mg PO DAILY 10/05/20 [History] Furosemide [Lasix] 20 mg PO DAILY PRN 10/05/20 [History] Levothyroxine 75 mcg PO SUSA 10/05/20 [History] Levothyroxine [Synthroid] 50 mcg PO MOTUWETHFR 10/05/20 [History] Nystatin [Nystatin Crm] 1 applic TOP DAILY PRN 10/05/20 [History] Polyvinyl Alcohol/Povidone/Pf [Refresh Classic Eye Drops] 1 drop EYEBOTH ASDIRECTED PRN 10/05/20 [History] Simvastatin [Zocor] 5 mg PO BEDTIME 10/05/20 [History] Referrals: Ilsa Bingham PA-C [Physician Keg Varnisher] - - Discharge Summary/Plan Comment DC Time >30 min.: No - General Info Date of Service: 10/07/20 Admission Dx/Problem (Free Text: Admission Diagnosis/Problem Admission Diagnosis/Problem Hypoxia - Review of Systems Systems Review Comment: Patient pulseless and apneic - Patient Data Vitals - Most Recent: Last Vital Signs Temp 98.1 F 01/12/21 06:39 Pulse 74 10/07/20 16:00 Resp 20 10/07/20 16:00 BP 128/78 10/07/20 16:00 Pulse Ox 94 L 10/07/20 16:00 Weight - Most Recent: 127 lb I&O - Last 24 hours: Intake & Output 10/07/20 10/08/20 10/08/20 22:59 06:59 14:59 Output Total 225 Balance -225 Lab Results - Last 24 hrs: Laboratory Results - last 24 hr 10/07/20 10/07/20 10/07/20 Range/Units 07:00 07:00 07:00 WBC 7.24 (3.98-10.04) K/mm3 RBC 4.00 (3.98-5.22) M/mm3 Hgb 11.4 (11.2-15.7) gm/dl Hct 37.6 (34.1-44.9) % MCV 94.0 (79.4-94.8) fl MCH 28.5 (25.6-32.2) pg MCHC 30.3 L (32.2-35.5) g/dl RDW Std Deviation 50.4 H (36.4-46.3) fL Plt Count 161 L (182-369) K/mm3 MPV 11.8 (9.4-12.3) fl Neut % (Auto) 84.8 H (34.0-71.1) % Lymph % (Auto) 7.7 L (19.3-51.7) % [place] % (Auto) 7.3 (4.7-12.5) % Eos % (Auto) 0 L (0.7-5.8) Baso % (Auto) 0.1 (0.1-1.2) % Neut # (Auto) 6.13 (1.56-6.13) K/mm3 Lymph # (Auto) 0.56 L (1.18-3.74) K/mm3 [place] # (Auto) 0.53 H (0.24-0.36) K/mm3 Eos # (Auto) 0.00 L (0.04-0.36) K/mm3 Baso # (Auto) 0.01 (0.01-0.08) K/mm3 Manual Slide Review Normal smear D-Dimer, Quantitative 1.27 H (0.19-0.50) mg/L Sodium 148 H (136-145) mEq/L Potassium 3.3 L (3.5-5.1) mEq/L Chloride 105 (98-107) mEq/L Carbon Dioxide 33 H (21-32) mEq/L Anion Gap 13.3 (5-15) BUN 26 H (7-18) mg/dL Creatinine 0.9 (0.55-1.02) mg/dL Est Cr Clr Drug Dosing 31.63 mL/min Estimated GFR (MDRD) 59 (>60) mL/min BUN/Creatinine Ratio 28.9 H (14-18) Glucose 101 (83-115) mg/dL POC Glucose (83-110) mg/dL Calcium 8.8 (8.5-10.1) mg/dL Phosphorus 3.5 (2.6-4.7) mg/dL Magnesium 2.0 (1.8-2.4) mg/dl Total Bilirubin 0.6 (0.2-1.0) mg/dL AST 42 H (15-37) U/L ALT 28 (14-59) U/L Alkaline Phosphatase 68 (46-116) U/L C-Reactive Protein 23.8 H* (<1.0) mg/dL Total Protein 7.1 (6.4-8.2) g/dl Albumin 2.5 L (3.4-5.0) g/dl Globulin 4.6 gm/dL Albumin/Globulin Ratio 0.5 L (1-2) 10/07/20 Range/Units 14:28 WBC (3.98-10.04) K/mm3 RBC (3.98-5.22) M/mm3 Hgb (11.2-15.7) gm/dl Hct (34.1-44.9) % MCV (79.4-94.8) fl MCH (25.6-32.2) pg MCHC (32.2-35.5) g/dl RDW Std Deviation (36.4-46.3) fL Plt Count (182-369) K/mm3 MPV (9.4-12.3) fl Neut % (Auto) (34.0-71.1) % Lymph % (Auto) (19.3-51.7) % [place] % (Auto) (4.7-12.5) % Eos % (Auto) (0.7-5.8) Baso % (Auto) (0.1-1.2) % Neut # (Auto) (1.56-6.13) K/mm3 Lymph # (Auto) (1.18-3.74) K/mm3 [place] # (Auto) (0.24-0.36) K/mm3 Eos # (Auto) (0.04-0.36) K/mm3 Baso # (Auto) (0.01-0.08) K/mm3 Manual Slide Review D-Dimer, Quantitative (0.19-0.50) mg/L Sodium (136-145) mEq/L Potassium (3.5-5.1) mEq/L Chloride (98-107) mEq/L Carbon Dioxide (21-32) mEq/L Anion Gap (5-15) BUN (7-18) mg/dL Creatinine (0.55-1.02) mg/dL Est Cr Clr Drug Dosing mL/min Estimated GFR (MDRD) (>60) mL/min BUN/Creatinine Ratio (14-18) Glucose (83-115) mg/dL POC Glucose 118 H (83-110) mg/dL Calcium (8.5-10.1) mg/dL Phosphorus (2.6-4.7) mg/dL Magnesium (1.8-2.4) mg/dl Total Bilirubin (0.2-1.0) mg/dL AST (15-37) U/L ALT (14-59) U/L Alkaline Phosphatase (46-116) U/L C-Reactive Protein (<1.0) mg/dL Total Protein (6.4-8.2) g/dl Albumin (3.4-5.0) g/dl Globulin gm/dL Albumin/Globulin Ratio (1-2) ELLE Results - Last 24 hrs: Microbiology 10/06/20 00:23 Aerobic Blood Culture - Preliminary Blood - Venous - Lab Draw NO GROWTH AFTER 2 DAYS Anaerobic Blood Culture - Preliminary NO GROWTH AFTER 2 DAYS 10/06/20 00:15 Aerobic Blood Culture - Preliminary Blood - Venous NO GROWTH AFTER 2 DAYS Anaerobic Blood Culture - Preliminary NO GROWTH AFTER 2 DAYS Med Orders - Current: Current Medications Discontinued Medications Acetaminophen (Tylenol) 650 mg PO Q4H PRN PRN Reason: Fever Greater Than 101 Acetaminophen (Tylenol) 650 mg RECTAL NOW ONE Stop: 10/06/20 22:18 Last Admin: 10/06/20 23:16 Dose: 650 mg Documented by: Acetaminophen (Tylenol) 650 mg RECTAL Q6H PRN PRN Reason: Fever Greater Than 101 Albuterol (Proventil Hfa) 0 gm INH Q4H PRN PRN Reason: SOB/Wheezing Artificial Tears (Refresh Liquigel 1%) 0 ml EYEBOTH Q4H PRN PRN Reason: Dry Eyes Aspirin (Halfprin) 81 mg PO DAILY [facility] Last Admin: 10/06/20 09:55 Dose: 81 mg Documented by: Atropine Sulfate (Atropine 1% Ophth Soln) 0 ml SL Q2H PRN PRN Reason: excessive secretions Azithromycin (Zithromax) 500 mg PO DAILY [facility] Stop: 10/08/20 09:01 Last Admin: 10/06/20 09:57 Dose: 500 mg Documented by: Budesonide (Pulmicort) 0.5 mg INH BID [facility] Last Admin: 10/07/20 08:21 Dose: 0.5 mg Documented by: Calcium Carbonate (Calcium Carbonate/Vitamin D 600 Mg-200 Unit) 1 tab PO BID [facility] Last Admin: 10/06/20 21:05 Dose: Not Given Documented by: Cholecalciferol (Vitamin D3) 5,000 unit PO DAILY [facility] Last Admin: 10/06/20 09:55 Dose: 5,000 unit Documented by: Dexamethasone (Dexamethasone) 6 mg PO ONETIME [facility] Stop: 10/06/20 02:22 Last Admin: 10/06/20 02:49 Dose: 6 mg Documented by: Dexamethasone (Dexamethasone) 6 mg PO Q24H [facility] Stop: 10/15/20 06:01 Last Admin: 10/07/20 14:38 Dose: Not Given Documented by: Dexamethasone (Decadron) 6 mg IVPUSH DAILY [facility] Stop: 10/15/20 09:01 Last Admin: 10/07/20 08:45 Dose: 6 mg Documented by: Docusate Sodium (Colace) 100 mg PO BID PRN PRN Reason: Constipation Enoxaparin Sodium (Lovenox) 30 mg SUBCUT ONETIME ONE Stop: 10/06/20 08:01 Last Admin: 10/06/20 13:49 Dose: Not Given Documented by: Enoxaparin Sodium (Lovenox) 30 mg SUBCUT DAILY [facility] Last Admin: 10/07/20 08:50 Dose: 30 mg Documented by: Famotidine (Pepcid) 20 mg PO DAILY [facility] Last Admin: 10/06/20 09:55 Dose: 20 mg Documented by: Furosemide (Lasix) 60 mg PO DAILY [facility] Last Admin: 10/06/20 09:56 Dose: 60 mg Documented by: Furosemide (Lasix) 40 mg IVPUSH NOW ONE Stop: 10/06/20 13:37 Last Admin: 10/06/20 13:52 Dose: 40 mg Documented by: Furosemide (Lasix) 40 mg IVPUSH DAILY [facility] Last Admin: 10/07/20 08:48 Dose: 40 mg Documented by: Guaifenesin/Phenylephrine HCl (Robitussin Dm) 10 ml PO Q4H PRN PRN Reason: Cough Last Admin: 10/06/20 09:58 Dose: 10 ml Documented by: Sodium Chloride (Normal Saline) 1,000 mls @ 100 mls/hr IV ASDIRECTED [facility] Last Admin: 10/06/20 02:49 Dose: 100 mls/hr Documented by: Sodium Chloride (Normal Saline) 100 mls @ 60 mls/hr IV ASDIRECTED [facility] Last Admin: 10/06/20 02:21 Dose: 60 mls/hr Documented by: Remdesivir 200 mg/ Sodium (Chloride) 250 mls @ 250 mls/hr IV ONETIME ONE Stop: 10/06/20 02:24 Last Admin: 10/06/20 02:49 Dose: 250 mls/hr Documented by: Magnesium Sulfate (Magnesium Sulfate In Water Premix) 2 gm in 50 mls @ 25 mls/hr IV ONETIME ONE Stop: 10/06/20 06:40 Last Admin: 10/06/20 05:57 Dose: 25 mls/hr Documented by: Remdesivir 100 mg/ Sodium (Chloride) 100 mls @ 100 mls/hr IV Q24H [facility] Stop: 10/10/20 03:59 Last Admin: 10/07/20 03:21 Dose: 100 mls/hr Documented by: Ceftriaxone Sodium 2 gm/ (Sodium Chloride) 100 mls @ 200 mls/hr IV Q24H [facility] Stop: 10/10/20 09:29 Last Admin: 10/06/20 09:57 Dose: 200 mls/hr Documented by: Piperacillin Sod/Tazobactam (Sod 4.5 gm/ Sodium Chloride) 100 mls @ 200 mls/hr IV ONETIME ONE Stop: 10/06/20 14:29 Last Admin: 10/06/20 14:04 Dose: 200 mls/hr Documented by: Piperacillin Sod/Tazobactam (Sod 4.5 gm/ Sodium Chloride) 100 mls @ 25 mls/hr IV Q8H [facility] Last Admin: 10/07/20 18:55 Dose: Not Given Documented by: Dextrose/Lactated Ringer's (Dextrose 5%-Lactated Ringers) 1,000 mls @ 75 mls/hr IV ASDIRECTED [facility] Potassium Chloride 10 meq/ (Premix) 100 mls @ 100 mls/hr IV Q1H [facility] Stop: 10/07/20 12:29 Last Admin: 10/07/20 13:05 Dose: 100 mls/hr Documented by: Dextrose/Lactated Ringer's (Dextrose 5%-Lactated Ringers) 1,000 mls @ 30 mls/hr IV ASDIRECTED [facility] Last Admin: 10/07/20 08:55 Dose: 30 mls/hr Documented by: Iopamidol (Isovue-370 (76%)) 50 ml IVPUSH ONETIME ONE Stop: 10/06/20 01:48 Last Admin: 10/06/20 02:21 Dose: 50 ml Documented by: Levothyroxine Sodium (Levothyroxine) 75 mcg PO SUSA [facility] Levothyroxine Sodium (Synthroid) 50 mcg PO MOTUWETHFR [facility] Last Admin: 10/07/20 14:38 Dose: Not Given Documented by: Lorazepam (Ativan) 0.5 mg IVPUSH ONETIME ONE Stop: 10/06/20 13:42 Last Admin: 10/06/20 14:57 Dose: Not Given Documented by: Lorazepam (Ativan) 0.5 mg IVPUSH Q4H PRN PRN Reason: Anxiety - comfort care Miscellaneous Information (Remove Patch) 0 ea TRDERM DAILY [facility] Montelukast Sodium (Singulair) 10 mg PO DAILY [facility] Last Admin: 10/06/20 09:56 Dose: 10 mg Documented by: Morphine Sulfate (Morphine) 1 mg IVPUSH Q2H PRN PRN Reason: Pain Last Admin: 10/07/20 11:59 Dose: 1 mg Documented by: Morphine Sulfate (Morphine) 1 mg IVPUSH Q1H PRN PRN Reason: Pain - comfort care Last Admin: 10/07/20 17:41 Dose: 1 mg Documented by: Ondansetron HCl (Zofran) 4 mg IV Q6H PRN PRN Reason: Nausea/Vomiting Oxybutynin Chloride (Oxybutynin) 5 mg PO DAILY [facility] Last Admin: 10/06/20 09:57 Dose: 5 mg Documented by: Potassium Chloride (Klor-Con M20) 20 meq PO BID [facility] Last Admin: 10/06/20 21:06 Dose: Not Given Documented by: Scopolamine (Transderm-Scop) 1.5 mg TRDERM Q72H PRN PRN Reason: Excessive secretions Simvastatin (Zocor) 5 mg PO BEDTIME [facility] Last Admin: 10/06/20 21:06 Dose: Not Given Documented by: Tramadol HCl (Ultram) 50 mg PO Q6H PRN PRN Reason: Pain Zinc Sulfate (Zincate) 220 mg PO DAILY [facility] Last Admin: 10/06/20 09:57 Dose: 220 mg Documented by: - Exam Physical Findings Comments:: Patient pulseless and apneic.
[2020-10-11] MEDS ORDERED: Levothyroxine 75 MCG Tab PO SCH (06:00)
== END 2020-10-07 21:30 | disposition expired | DRG 177 ==
LOC: JD.ED 23:24 → JD.MS 10-06 02:57 → JD.ICU 10-06 13:56 → JD.MS 10-07 17:37
PROVIDERS: ADMIT Internal Medicine; ATTEND Internal Medicine
PROC: 5A0935A Assistance with Respiratory Ventilation, Less than 24 Consecutive Hours, High Flow/Velocity Cannula (ICD-10-PCS; principal; 2020-10-06)
PROC: XW033E5 Introduction of Remdesivir Anti-infective into Peripheral Vein, Percutaneous Approach, New Technology Group 5 (ICD-10-PCS; 2020-10-06)
PROC: 8E0ZXY6 Isolation (ICD-10-PCS; 2020-10-06)
PROC: 5A09357 Assistance with Respiratory Ventilation, Less than 24 Consecutive Hours, Continuous Positive Airway Pressure (ICD-10-PCS; 2020-10-07)
DX: U07.1 COVID-19 (principal); R09.02 Hypoxemia; J12.82 Pneumonia due to coronavirus disease 2019; J96.01 Acute respiratory failure with hypoxia; E83.42 Hypomagnesemia; K21.9 Gastro-esophageal reflux disease without esophagitis; E87.6 Hypokalemia; Z66 Do not resuscitate; Z51.5 Encounter for palliative care; I11.0 Hypertensive heart disease with heart failure; I50.9 Heart failure, unspecified; T17.908A Unspecified foreign body in respiratory tract, part unspecified causing other injury, initial encounter; M81.0 Age-related osteoporosis without current pathological fracture; M19.90 Unspecified osteoarthritis, unspecified site; M41.9 Scoliosis, unspecified; H35.30 Unspecified macular degeneration; Z96.653 Presence of artificial knee joint, bilateral; Z96.641 Presence of right artificial hip joint; E89.0 Postprocedural hypothyroidism; Z99.81 Dependence on supplemental oxygen; Z79.899 Other long term (current) drug therapy; Z79.82 Long term (current) use of aspirin; Z79.890 Hormone replacement therapy; Z98.890 Other specified postprocedural states; Z90.710 Acquired absence of both cervix and uterus; Z85.828 Personal history of other malignant neoplasm of skin; Z85.850 Personal history of malignant neoplasm of thyroid; Z79.51 Long term (current) use of inhaled steroids; Z98.41 Cataract extraction status, right eye; Z98.42 Cataract extraction status, left eye
CPT/HCPCS: 0240U; 36415; 36600; 51702; 71045; 71275; 80053; 82306; 82728; 82803; 82962; 83605; 83615; 83735; 83880; 84100; 84145; 84484; 85007; 85025; 85027; 85379; 85610; 85652; 85730; 86140; 87040; 87641; 93005; 94640; 94660; 94667; 94761; 96365; 96366; 96375; 97162; 97530; 99285; 93010; 99284; A9270-GY; J0696; J1100; J1650; J1940; J2270; J2543; J3475; J3480; J7030; J7050; J7121; J8540; Q9967